=== PATIENT | female | born 1970 | race Caucasian/White ===

== ENCOUNTER → 2016-07-05 | Outpatient (CLI) | payer OTHER ==
[~2016-07-05] MED LIST: CHLO1TAB47 PO; DXY100 PO; FLNIN/ NAE; OMEP20CA9 PO; VNTHFA/IN PO
--- NOTE | 2016-07-05 12:10 | DIAGNOSTIC IMAGING REPORT ---
Bladder ultrasound (BLADE) RETROPERITONEAL LTD CLINICAL HISTORY: URINARY INCONTINENCE TECHNIQUE: Pre and post void bladder ultrasound COMPARISON STUDY: None FINDINGS: Prevoid bladder volume 250 cc. Post void 20 cc. Configuration of bladder is unremarkable. IMPRESSION: Pre and post void bladder volumes are 250 and 20 cc respectively. Negative study Electronically signed by: Doron Luo M.D. 07/05/2016 12:08 PM Dictated Date/Time: 07/05/2016 12:07 PM
== END | disposition home or self-care (01) ==
LOC: C.ULTR 11:39
PROVIDERS: ATTEND Student in an Organized Health Care Education/Training Program
DX: R32 Unspecified urinary incontinence (principal)

== ENCOUNTER 2016-08-23 14:24 | Inpatient (IN) | payer OTHER ==
[~2016-08-23] VITALS: Ht 157.5 cm; Wt 76.7 kg
[~2016-08-23 14:24] MED LIST changes: -DXY100 PO; -FLNIN/ NAE; -OMEP20CA9 PO; -VNTHFA/IN PO
[2016-08-23] MEDS ORDERED: VNTHFA/IN PO (14:50)
[2016-08-23] MEDS ORDERED: FLNIN/ NAE (14:50)
[2016-08-23] MEDS ORDERED: OMEP20CA9 PO (14:50)
[2016-08-23 15:20] LABS: HEMATOCRIT 41.3 % (37-47); MEAN CELL VOLUME 86.6 fL (80-100); MEAN CORPUSCULAR HGB CONC 34.6 g/dl (32-36); MEAN PLATELET VOLUME 10.2 fL (7.4-10.4); PLATELET COUNT 314 K/uL (130-400); RED BLOOD COUNT 4.77 M/uL (4.2-5.4); WHITE BLOOD COUNT 14.25 K/uL (4.8-10.8)
[2016-08-23 15:28] LABS: PROTHROMBIN TIME (PATIENT) 10.2 SECONDS (9.0-12.0)
[2016-08-23] MEDS: SODIUM CHLORIDE 0.9% 1000ML 1,000 ML IV SCH ×2 (15:33→21:03)
[2016-08-23 15:41] LABS: BASO % 0.2 %; BASO ABS # 0.03 K/uL (0-0.2); COMPLETE YES; EOS % 2.9 %; IG% 0.4 %; LYMPH % 21.4 %; LYMPH ABS # 3.05 K/uL (1.2-3.4); NEUT % 69.1 %
[2016-08-23 15:51] LABS: BLOOD UREA NITROGEN 14 mg/dl (7-18); BUN/CREATININE RATIO 17.5 (10-20); CALCIUM 8.6 mg/dl (8.5-10.1); CARBON DIOXIDE 25 mmol/L (21-32); CHLORIDE 107 mmol/L (98-107); CREATININE 0.78 mg/dl (0.60-1.20); GLUCOSE 100 mg/dl (70-99); SODIUM 140 mmol/L (136-145)
[2016-08-23] MEDS ORDERED: OPTIRAY 320 IV PRN (16:00)
--- NOTE | 2016-08-23 16:05 | DIAGNOSTIC IMAGING REPORT ---
CT ANGIOGRAM OF THE BRAIN COMBO CLINICAL HISTORY: Left-sided weakness. Numbness. COMPARISON STUDY: No priors. TECHNIQUE: Unenhanced axial CT scan of the brain is performed. Subsequently, following the IV administration of 93 cc of Optiray 320, CT angiogram of the brain was performed from the skull base to the vertex. Images are reviewed in the axial, sagittal, and coronal planes. 3-D MIPS images are created and assessed. IV contrast was administered without complication. CT DOSE: 895.65 mGycm FINDINGS: Brain parenchyma: The brain parenchyma is normal in appearance. There is no hemorrhage, mass effect, or evidence of acute territorial ischemia by CT criteria. There is no evidence of enhancing mass lesion on the angiogram phase images. No extra-axial fluid collection is seen. Jane-white matter differentiation is preserved. Ventricles, sulci, and cisterns: Normal in configuration. CT angiogram of the brain: There is origin of the right posterior cervical artery. There is a large left posterior communicating artery. The internal carotid arteries are widely patent, as are the anterior and middle cerebral arteries. The vertebrobasilar system and posterior cerebral arteries are widely patent. Basilar artery is diminutive. The vertebral arteries are codominant. There is no aneurysm, high-grade stenosis, or focal vessel cutoff identified throughout the intracranial circulation. Dural sinuses: Clear as visualized. Internal jugular veins are patent. Orbits: The bony orbits are intact. The orbital contents are normal as visualized. Sinuses and mastoids: The visualized paranasal sinuses are clear. The mastoid air cells are well pneumatized. Calvarium: Unremarkable. IMPRESSION: 1. No acute intracranial abnormality. 2. Unremarkable CT angiogram of the brain. Electronically signed by: Trip Varghese M.D. 08/23/2016 4:04 PM Dictated Date/Time: 08/23/2016 3:56 PM
[2016-08-23 16:31] LABS: ISTAT CREATININE 0.7 mg/dl (0.6-1.3); ISTAT HEMOGLOBIN 14.6 g/dl (12.0-16.0); ISTAT IONIZED CALCIUM 1.18 mmol/l (1.12-1.32)
[2016-08-23] MEDS ORDERED: LORAZEPAM 2 MG/ML 1 ML VIAL IV STA (16:43)
--- NOTE | 2016-08-23 17:24 | DIAGNOSTIC IMAGING REPORT ---
MRI OF THE BRAIN WITHOUT CONTRAST CLINICAL HISTORY: Left-sided face and arm numbness. Left arm and leg weakness. Possible stroke. COMPARISON STUDY: CT angiography the brain dated 08/23/2016. FINDINGS: Sagittal T1, axial diffusion, proton density and T2 weighted axial, coronal FLAIR, and axial T1-weighted images were acquired. No intra or extra-axial mass lesions are visualized Axial diffusion-weighted images reveal no evidence of acute or subacute infarction. There is no evidence of ventricular dilatation. Proton density T2-weighted and FLAIR images reveal small nonspecific foci of increased FLAIR signal within the right frontal white matter. While likely on a small vessel basis, a demyelinating process could appear similar. There are no abnormal flow voids. IMPRESSION: 1. No evidence of intracranial mass on this noncontrast study 2. No evidence of acute or subacute infarction 3. Small nonspecific foci of increased FLAIR signal within the right frontal white matter. Electronically signed by: Héctor Griffin M.D. 08/23/2016 5:23 PM Dictated Date/Time: 08/23/2016 5:19 PM
[2016-08-23 17:36] LABS: LYME DISEASE AB IGM NEG (NEG)
[2016-08-23 17:44] LABS: LYME DISEASE AB IGG POS (NEG)
[2016-08-23] MEDS ORDERED: CEFTRIAXONE SOD INJ 1 GM ADDVIAL IV STA ×2 (17:50→18:19)
[2016-08-23] MEDS ORDERED: ASPIRIN 81 MG CHEW PO STA (18:03)
[2016-08-23] MEDS ORDERED: SODIUM CHLORIDE 0.9% 1000ML 1,000 ML IV SCH (18:15)
[2016-08-23] MEDS ORDERED: ONDANSETRON INJ 2 MG/ML 2 ML VIAL IV PRN (18:15)
[2016-08-23] MEDS ORDERED: ACETAMINOPHEN 325 MG TAB PO PRN (18:15)
[2016-08-23] MEDS ORDERED: PHARMACIST DISCHARGE MED REC CONSULT PRN (18:15)
--- NOTE | 2016-08-23 18:40 | EMERGENCY ROOM VISIT NOTE ---
History Report prepared by Nadja: Nena Barrera Under the Supervision of: Dr. Jasbir Sandy M.D. First contact with patient: 14:32 Chief Complaint: STROKE SYMPTOMS Stated Complaint: LEFT SIDE NUMBNESS,L ARM REAL HEAVY,PAIN IN L LEG History of Present Illness The patient is a 45 year old female who presents to the Emergency Room with complaints of persistent left sided weakness that began around 1100. The patient states that around 1100 she first noticed numbness to the left side of her face. She states that after the numbness she noticed left sided weakness in her left arm and left leg. The patient states that she then developed a "screaming" headache that has been alleviated with her Excedrin Migraine. She states that she consulted her PCP's office and was instructed to come to the emergency department for further evaluation and treatment. The patient states that she additionally noticed blurry vision. She reports a history of asthma, noting that she occasionally takes an inhaler and nasal spray. Pt denies LOC, fevers, chills, diaphoresis, neck pain, chest pain, breathing difficulties, nausea, vomiting, abdominal pain, back pain, melena, hematochezia, urinary symptoms, lymphadenopathy, rash, or other complaints. Source of History: patient Onset: 1100 Position: other (left sided) Quality: other (weakness) Timing: other (persistent) Associated Symptoms: + headache, + numbness (left facial) Review of Systems See HPI for pertinent positives and negatives. A total of ten systems were reviewed and were otherwise negative. Past Medical & Surgical Medical Problems: (1) Asthma (2) Asthma (3) History of tubal ligation (4) Pneumonia Family History Cancer Hypertension Social History Smoking Status: Current Every Day Smoker Alcohol Use: none Marital Status: in relationship Housing Status: lives with family Occupation Status: unemployed Current/Historical Medications Scheduled Fluticasone Propionate (Fluticasone Propionate), 2 SPRAYS LAURO DAILY Scheduled PRN Albuterol Hfa (Ventolin Hfa), 2 PUFFS PO Q4H PRN for Shortness of Breath Omeprazole (Prilosec), 20 MG PO DAILY PRN for Heartburn Allergies Coded Allergies: [place] (Verified Allergy, Unknown, ANAPHYLAXIS, 08/23/16) Physical Exam Vital Signs Date Time Temp Pulse Resp B/P (MAP) Pulse Ox O2 Delivery O2 Flow Rate FiO2 08/23/16 18:03 76 18 112/73 97 Room Air 08/23/16 16:24 78 16 103/66 97 Room Air 08/23/16 15:20 95 Room Air 08/23/16 15:15 78 08/23/16 14:25 36.7 92 17 120/75 95 Room Air Physical Exam GENERAL: Awake, alert, well-appearing, in no distress HENT: Normocephalic, atraumatic. Oropharynx unremarkable. EYES: Normal conjunctiva. Sclera non-icteric. NECK: Supple. No nuchal rigidity. FROM. No JVD. RESPIRATORY: Clear to auscultation. CARDIAC: Regular rate, normal rhythm. Extremities warm and well perfused. Pulses equal. ABDOMEN: Soft, non-distended. No tenderness to palpation. No rebound or guarding. No masses. RECTAL: Deferred. MUSCULOSKELETAL: Chest examination reveals no tenderness. The back is symmetrical on inspection without obvious abnormality. There is no CVA tenderness to palpation. No joint edema. LOWER EXTREMITIES: Calves are equal size bilaterally and non-tender. No edema. No discoloration. NEURO: Normal sensorium. Left arm and left leg weakness and drift on the left side. SKIN: No rash or jaundice noted. Medical Decision & Procedures ER Provider Diagnostic Interpretation: Radiology results as stated below per my review and radiologist interpretation: CT ANGIOGRAM OF THE BRAIN COMBO CLINICAL HISTORY: Left-sided weakness. Numbness. COMPARISON STUDY: No priors. TECHNIQUE: Unenhanced axial CT scan of the brain is performed. Subsequently, following the IV administration of 93 cc of Optiray 320, CT angiogram of the brain was performed from the skull base to the vertex. Images are reviewed in the axial, sagittal, and coronal planes. 3-D MIPS images are created and assessed. IV contrast was administered without complication. CT DOSE: 895.65 mGycm FINDINGS: Brain parenchyma: The brain parenchyma is normal in appearance. There is no hemorrhage, mass effect, or evidence of acute territorial ischemia by CT criteria. There is no evidence of enhancing mass lesion on the angiogram phase images. No extra-axial fluid collection is seen. Jane-white matter differentiation is preserved. Ventricles, sulci, and cisterns: Normal in configuration. CT angiogram of the brain: There is origin of the right posterior cervical artery. There is a large left posterior communicating artery. The internal carotid arteries are widely patent, as are the anterior and middle cerebral arteries. The vertebrobasilar system and posterior cerebral arteries are widely patent. Basilar artery is diminutive. The vertebral arteries are codominant. There is no aneurysm, high-grade stenosis, or focal vessel cutoff identified throughout the intracranial circulation. Dural sinuses: Clear as visualized. Internal jugular veins are patent. Orbits: The bony orbits are intact. The orbital contents are normal as visualized. Sinuses and mastoids: The visualized paranasal sinuses are clear. The mastoid air cells are well pneumatized. Calvarium: Unremarkable. IMPRESSION: 1. No acute intracranial abnormality. 2. Unremarkable CT angiogram of the brain. Electronically signed by: Trip Varghese M.D. 08/23/2016 4:04 PM Dictated Date/Time: 08/23/2016 3:56 PM MRI OF THE BRAIN WITHOUT CONTRAST CLINICAL HISTORY: Left-sided face and arm numbness. Left arm and leg weakness. Possible stroke. COMPARISON STUDY: CT angiography the brain dated 08/23/2016. FINDINGS: Sagittal T1, axial diffusion, proton density and T2 weighted axial, coronal FLAIR, and axial T1-weighted images were acquired. No intra or extra-axial mass lesions are visualized Axial diffusion-weighted images reveal no evidence of acute or subacute infarction. There is no evidence of ventricular dilatation. Proton density T2-weighted and FLAIR images reveal small nonspecific foci of increased FLAIR signal within the right frontal white matter. While likely on a small vessel basis, a demyelinating process could appear similar. There are no abnormal flow voids. IMPRESSION: 1. No evidence of intracranial mass on this noncontrast study 2. No evidence of acute or subacute infarction 3. Small nonspecific foci of increased FLAIR signal within the right frontal white matter. Electronically signed by: Héctor Griffin M.D. 08/23/2016 5:23 PM Dictated Date/Time: 08/23/2016 5:19 PM Laboratory Results 08/23/16 15:08 Red Blood Count 4.77, Mean Corpuscular Volume 86.6, Mean Corpuscular Hemoglobin 30.0, Mean Corpuscular Hemoglobin Concent 34.6, Mean Platelet Volume 10.2, Neutrophils (%) (Auto) 69.1, Lymphocytes (%) (Auto) 21.4, Monocytes (%) (Auto) 6.0, Eosinophils (%) (Auto) 2.9, Basophils (%) (Auto) 0.2, Neutrophils # (Auto) 9.84, Lymphocytes # (Auto) 3.05, Monocytes # (Auto) 0.86, Eosinophils # (Auto) 0.42, Basophils # (Auto) 0.03 08/23/16 15:08 08/23/16 16:03 Test 08/23/16 15:08 08/23/16 15:18 08/23/16 16:03 White Blood Count 14.25 K/uL (4.8-10.8) Red Blood Count 4.77 M/uL (4.2-5.4) Hemoglobin 14.3 g/dL (12.0-16.0) Hematocrit 41.3 % (37-47) Mean Corpuscular Volume 86.6 fL (80-100) Mean Corpuscular Hemoglobin 30.0 pg (25-34) Mean Corpuscular Hemoglobin Concent 34.6 g/dl (32-36) Platelet Count 314 K/uL (130-400) Mean Platelet Volume 10.2 fL (7.4-10.4) Neutrophils (%) (Auto) 69.1 % Lymphocytes (%) (Auto) 21.4 % Monocytes (%) (Auto) 6.0 % Eosinophils (%) (Auto) 2.9 % Basophils (%) (Auto) 0.2 % Neutrophils # (Auto) 9.84 K/uL (1.4-6.5) Lymphocytes # (Auto) 3.05 K/uL (1.2-3.4) Monocytes # (Auto) 0.86 K/uL (0.11-0.59) Eosinophils # (Auto) 0.42 K/uL (0-0.5) Basophils # (Auto) 0.03 K/uL (0-0.2) RDW Standard Deviation 43.4 fL (36.4-46.3) RDW Coefficient of Variation 13.6 % (11.5-14.5) Immature Granulocyte % (Auto) 0.4 % Immature Granulocyte # (Auto) 0.05 K/uL (0.00-0.02) Red Blood Cell Morphology Unremarkable Prothrombin Time 10.2 SECONDS (9.0-12.0) Prothromb Time International Ratio 1.0 (0.9-1.1) Activated Partial Thromboplast Time 25.1 SECONDS (21.0-31.0) Partial Thromboplastin Ratio 1.0 Est Creatinine Clear Calc Drug Dose 88.4 ml/min Estimated GFR () 107.2 Estimated GFR (Non- 92.5 BUN/Creatinine Ratio 17.5 (10-20) Calcium Level 8.6 mg/dl (8.5-10.1) Creatine Kinase MB < 0.5 ng/ml (0.5-3.6) Creatine Kinase MB Ratio (0-3.0) Troponin I < 0.015 ng/ml (0-0.045) Bedside Hemoglobin 14.6 g/dl (12.0-16.0) Bedside Hematocrit 43 % (37-47) Bedside Sodium 139 mEq/L (135-144) Bedside Potassium 3.8 mEq/L (3.3-5.0) Bedside Chloride 102 mEq/L (101-112) Bedside Total CO2 24 mEq/l (24-31) Anion Gap 17.0 mmol/L (16-25) Bedside Blood Urea Nitrogen 14 mg/dl (7-18) Bedside Creatinine 0.7 mg/dl (0.6-1.3) Bedside Glucose (other) 103 mg/dl (70-99) Bedside Ionized Calcium (Jensen) 1.18 mmol/l (1.12-1.32) Total Creatine Kinase 91 U/L (26-192) Lyme Disease IgG Antibody POS (NEG) Laboratory results reviewed by me Medications Administered Medications (Trade) Dose Ordered Sig/Mauri Route Start Time Stop Time Status Last Admin Dose Admin Sodium Chloride 1,000 ml @ 50 mls/hr Q20H IV 08/23/16 15:00 09/22/16 14:59 08/23/16 15:33 50 MLS/HR Lorazepam (Ativan Inj) 0.5 mg NOW STAT IV 08/23/16 16:43 08/23/16 16:44 DC 08/23/16 16:49 0.5 MG Ceftriaxone Sodium (Rocephin Inj) 1 gm NOW STAT IV 08/23/16 17:50 08/23/16 17:51 DC 08/23/16 18:03 1 GM ECG Indication: weakness Rate (beats per minute): 70 Rhythm: sinus rhythm Findings: no acute ischemic change, no ectopy, other (short [place]) ED Course 1455: The patient was evaluated in room B3B. A complete history and physical exam was performed. 1500: Ordered Sodium Chloride 1000 ml @ 50 mls/hr IV. 1640: I reevaluated the patient and she is doing better. Her arm weakness has resolved and her right leg is feeling better. I discussed the exam findings with her and she is going to have an MRI. She is in agreement with the plan. 1643: Ordered Ativan Inj 0.5 mg IV. 1740: I reevaluated the patient and she is feeling better. Her weakness has resolved. I discussed the MRI findings with her. Neurology will be consulted. 174: I discussed the patients case with Dr. Hermosillo, [facility] Neurology. She states that the patient should be evaluated for further evaluation for the patient and further stroke work up. 1750: Ordered Rocephin Inj 1 gm IV. 175: I reevaluated the patient and she is doing well. I discussed the treatment plan with her and she verbalized complete understanding and agreement. She will be evaluated for further treatment. 180: I discussed the patients case with Vianey Rivera. She is going to evaluate the patient for further treatment. 180: Ordered Aspirin 324 mg PO. Medical Decision Medication Reconciliation: I attest that I have personally reviewed the patient' s current medication list Blood pressure screening: Patient was found to have normal blood pressure on screening and does not require follow-up. Prior records/ancillary studies reviewed and summarized above. Nursing notes reviewed and agree them. Additional history obtained from family. The patient's history was concerning for weakness and headache. Differential diagnosis: Etiologies such as CVA, TIA, migraine, atypical migraine, Lyme disease, ypo/ hyperglycemia, electrolyte abnormalities, cardiac sources, intracerebral event, toxicologic, neurologic, as well as others were entertained. Physical examination: As above. ER treatment provided: IV Lock Saline hydration On reassessment the patient felt better. Weakness improved. IV Ativan prior to MRI IV Rocephin 2 g Diagnostics interpretation by me: ECG: Normal The labs revealed a slight leukocytosis and CBC. Chemistry panel was unremarkable. Imaging studies: CT and MRI as above Consultation: A consultation was placed with the neurologist, Dr. Eryn Hermosillo. The case is discussed and she recommended further evaluation and management in the hospital. The case was discussed with the [facility] hospitalist. The case was discussed and diagnostics were reviewed. The patient was evaluated in the ER for further treatment. Consults Time Called: 1742 Consulting Physician: Vianey Pérez Neurology Returned Call: 174 I reevaluated the patient and she is feeling better. Her weakness has resolved. I discussed the MRI findings with her. Neurology will be consulted. Additional Consults: Time Called: 175 Consulted Physician: Vianey Rivera Returned Call: 180 Additional Comments: I discussed the patients case with Vianey Rivera. She is going to evaluate the patient for further treatment. Impression Primary Impression: Left-sided weakness Additional Impressions: Headache Lyme disease Scribe Attestation The scribe's documentation has been prepared under my direction and personally reviewed by me in its entirety. I confirm that the note above accurately reflects all work, treatment, procedures, and medical decision making performed by me. Departure Information Dispostion Being Evaluated By Hospitalist Referrals Cora Salas D.O. (PCP) Patient Instructions My [facility] Problem Qualifiers
--- NOTE | 2016-08-23 18:43 | History and Physical ---
History & Physical Date & Time of Service: Aug 23, 2016 at 18:43 Chief Complaint: Left Side Numbness,L Arm Real Heavy,Pain In L Leg Primary Care Physician: Cora Salas D.O. History of Present Illness Source: patient Patient is a 45 yr old female with PMH of Asthma, GERD, Migraine, Tobacco use presents with history of sudden onset of left sided facial numbness and left sided weakness. Patient reports she noticed left sided facial numbness at around 11AM this morning which lasted for about 20-30 minutes and then she felt "shaky" and developed left arm numbness and weakness and long with left leg weakness which lasted for about 4-5 hours which resolved currently while in ED. Reports associated blurry vision (lasted for 10 minutes) and frontal and retrobulbar headache which resolved after taking Excedrin Migraine. Denies similar history in the past. Denies any history of chest pain, SOB, fever, chills, rash, facial deformity, speech problems, LOC, head trauma, abd pain, change in bowel/bladder habits, cough, wheezing, neck stiffness. MRI brain showed a small nonspecific foci of increased flair signal within the right frontal white matter. She reports no rash, tick bite or h/o lyme disease but reports she lives near to a [place] and Ig G for lyme is positive but IgM is negative. Past Medical/Surgical History Medical Problems: (1) Asthma Status: Chronic (2) Asthma Status: Chronic (3) History of tubal ligation Status: Resolved (4) Pneumonia Status: Resolved Family History Cancer Hypertension Mother: Cervical cancer, Diabetes Father: Stroke Maternal Grand mother: Pancreatic cancer Social History Smoking Status: Current Every Day Smoker Alcohol Use: socially Drug Use: none Marital Status: in relationship Occupational Status: unemployed Multi-Drug Resistant Organisms History of MDRO: No Allergies Coded Allergies: [place] (Verified Allergy, Unknown, ANAPHYLAXIS, 08/23/16) Home Medications Scheduled Fluticasone Propionate (Fluticasone Propionate), 2 SPRAYS LAURO DAILY Scheduled PRN Albuterol Hfa (Ventolin Hfa), 2 PUFFS PO Q4H PRN for Shortness of Breath Omeprazole (Prilosec), 20 MG PO DAILY PRN for Heartburn Review of Systems See HPI for pertinent positives & negatives. A total of 10 systems reviewed and were otherwise negative. Physical Exam Vital Signs Date Time Temp Pulse Resp B/P (MAP) Pulse Ox O2 Delivery O2 Flow Rate FiO2 08/23/16 18:03 76 18 112/73 97 Room Air 08/23/16 16:24 78 16 103/66 97 Room Air 08/23/16 15:20 95 Room Air 08/23/16 15:15 78 08/23/16 14:25 36.7 92 17 120/75 95 Room Air General Appearance: WD/WN, no apparent distress Head: normocephalic, atraumatic Eyes: normal inspection, PERRL, EOMI, sclerae normal ENT: normal ENT inspection, hearing grossly normal Neck: supple, trachea midline Respiratory/Chest: chest non-tender, lungs clear, normal breath sounds, no respiratory distress, no accessory muscle use Cardiovascular: regular rate, rhythm, no edema, no murmur Abdomen/GI: normal bowel sounds, non tender, soft Back: normal inspection Extremities/Musculoskelatal: normal inspection, no pedal edema Neurologic/Psych: film editor II-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 No facial deformity ) Skin: normal color, warm/dry, no rash Diagnostics Laboratory Results Results Past 24 Hours Test 08/23/16 15:08 08/23/16 15:18 08/23/16 16:03 Range/Units White Blood Count 14.25 4.8-10.8 K/uL Red Blood Count 4.77 4.2-5.4 M/uL Hemoglobin 14.3 12.0-16.0 g/dL Hematocrit 41.3 37-47 % Mean Corpuscular Volume 86.6 80-100 fL Mean Corpuscular Hemoglobin 30.0 25-34 pg Mean Corpuscular Hemoglobin Concent 34.6 32-36 g/dl Platelet Count 314 130-400 K/uL Mean Platelet Volume 10.2 7.4-10.4 fL Neutrophils (%) (Auto) 69.1 % Lymphocytes (%) (Auto) 21.4 % Monocytes (%) (Auto) 6.0 % Eosinophils (%) (Auto) 2.9 % Basophils (%) (Auto) 0.2 % Neutrophils # (Auto) 9.84 1.4-6.5 K/uL Lymphocytes # (Auto) 3.05 1.2-3.4 K/uL Monocytes # (Auto) 0.86 0.11-0.59 K/uL Eosinophils # (Auto) 0.42 0-0.5 K/uL Basophils # (Auto) 0.03 0-0.2 K/uL RDW Standard Deviation 43.4 36.4-46.3 fL RDW Coefficient of Variation 13.6 11.5-14.5 % Immature Granulocyte % (Auto) 0.4 % Immature Granulocyte # (Auto) 0.05 0.00-0.02 K/uL Red Blood Cell Morphology Unremarkable Prothrombin Time 10.2 9.0-12.0 SECONDS Prothromb Time International Ratio 1.0 0.9-1.1 Activated Partial Thromboplast Time 25.1 21.0-31.0 SECONDS Partial Thromboplastin Ratio 1.0 Sodium Level 140 136-145 mmol/L Potassium Level 4.0 3.5-5.1 mmol/L Chloride Level 107 98-107 mmol/L Carbon Dioxide Level 25 21-32 mmol/L Anion Gap 8.0 17.0 16-25 mmol/L Blood Urea Nitrogen 14 7-18 mg/dl Creatinine 0.78 0.60-1.20 mg/dl Est Creatinine Clear Calc Drug Dose 88.4 ml/min Estimated GFR () 107.2 Estimated GFR (Non- 92.5 BUN/Creatinine Ratio 17.5 10-20 Random Glucose 100 70-99 mg/dl Calcium Level 8.6 8.5-10.1 mg/dl Total Creatine Kinase 91 26-192 U/L Creatine Kinase MB < 0.5 0.5-3.6 ng/ml Creatine Kinase MB Ratio 0-3.0 Troponin I < 0.015 0-0.045 ng/ml Bedside Hemoglobin 14.6 12.0-16.0 g/dl Bedside Hematocrit 43 37-47 % Bedside Sodium 139 135-144 mEq/L Bedside Potassium 3.8 3.3-5.0 mEq/L Bedside Chloride 102 101-112 mEq/L Bedside Total CO2 24 24-31 mEq/l Bedside Blood Urea Nitrogen 14 7-18 mg/dl Bedside Creatinine 0.7 0.6-1.3 mg/dl Bedside Glucose (other) 103 70-99 mg/dl Bedside Ionized Calcium (Jensen) 1.18 1.12-1.32 mmol/l Lyme Disease IgG Antibody POS NEG Lyme Disease IgM Antibody NEG NEG Diagnostic Radiology MRI Brain: 1. No evidence of intracranial mass on this noncontrast study 2. No evidence of acute or subacute infarction 3. Small nonspecific foci of increased FLAIR signal within the right frontal white matter. Head CTA: 1. No acute intracranial abnormality. 2. Unremarkable CT angiogram of the brain. EKG EKG: Sinus rhythm with short ID Impression Assessment and Plan Stroke Like Symptoms: DD: Disseminated lyme's disease, complicated Migraine, TIA Presented with left sided numbness and weakness, transient headache and blurry vision. Currently symptoms resolved while in ED Not a candidate for tPA- Passed the window period and symptoms resolved MRI Brain:a small nonspecific foci of increased flair signal within the right frontal white matter. Head CTA: No acute intracranial abnormality Admit in Tele Stroke work up including lipid panel, A1C, Carotid duplex, ECHO Speech and swallow eval Start aspirin, Lipitor Neuro checks, Neurology consult PT/OT Start IV ceftriaxone empirically for Lyme's disease Lyme's Ig G is positive but IgM is negative. 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
[2016-08-23] MEDS ORDERED: ALBUT/IPRATROP 3MG/0.5MG NEB 3 ML VIAL INH PRN (19:00)
[2016-08-23] MEDS ORDERED: PANTOprazole SOD 40 MG TAB PO PRN (19:00)
[2016-08-23 20:15] VITALS: BP 104/61; PULSE 75; TEMP 36.9; O2SAT 96; Ht 157.5 cm; Wt 76.7 kg
--- NOTE | 2016-08-23 20:17 | DIAGNOSTIC IMAGING REPORT ---
ULTRASOUND OF THE CAROTID ARTERIES CLINICAL HISTORY: Stroke COMPARISON STUDY: None. TECHNIQUE: Real-time, grayscale, and color Doppler sonography of the carotid arteries was performed. Imaging reviewed in the transverse and longitudinal planes. NASCET criteria was utilized for stenosis calcification. FINDINGS: There is no significant atherosclerotic plaque present . The peak systolic velocity within the right internal carotid artery is 85 cm/sec. The systolic velocity ratio of right internal to common carotid artery is 0.9. The peak systolic velocity within the left internal carotid artery is 87 cm/sec. The systolic velocity ratio left internal to common carotid artery is 0.9. Antegrade flow is seen in the vertebral arteries. The external carotid arteries are patent. Blood pressure in the right arm measured 99 mm/Hg. Blood pressure in the left arm measured 82 mm/Hg. IMPRESSION: Normal study. No evidence of carotid stenosis. Electronically signed by: Héctor Griffin M.D. 08/23/2016 8:16 PM Dictated Date/Time: 08/23/2016 8:14 PM
[2016-08-23] MEDS: NICOTINE 21 MG/24 HR TDSY TD SCH (22:39)
[2016-08-23 23:47] VITALS: BP 100/59; PULSE 80; TEMP 37; O2SAT 97
[2016-08-24] VITALS (7 sets, daily range): BP systolic 93–132; BP diastolic 58–82; PULSE 76–90; TEMP 36.6–36.9; O2SAT 93–97
[2016-08-24 06:15] LABS: BASO % 0.2 %; BASO ABS # 0.02 K/uL (0-0.2); COMPLETE YES; EOS % 5.3 %; HEMATOCRIT 39.8 % (37-47); IG% 0.3 %; LYMPH % 24.6 %; LYMPH ABS # 2.92 K/uL (1.2-3.4); MEAN CELL VOLUME 88.1 fL (80-100); MEAN CORPUSCULAR HEMOGLOBIN 30.3 pg (25-34); MEAN CORPUSCULAR HGB CONC 34.4 g/dl (32-36); MEAN PLATELET VOLUME 10.3 fL (7.4-10.4); MONO % 5.3 %; NEUT % 64.3 %; PLATELET COUNT 281 K/uL (130-400); RED BLOOD COUNT 4.52 M/uL (4.2-5.4); WHITE BLOOD COUNT 11.89 K/uL (4.8-10.8)
[2016-08-24 06:56] LABS: BUN/CREATININE RATIO 20.5 (10-20); CREATININE 0.66 mg/dl (0.60-1.20); POTASSIUM 3.9 mmol/L (3.5-5.1)
[2016-08-24 06:59] LABS: CHOLESTEROL/HDL RATIO 3.9
[2016-08-24] MEDS: NICOTINE 21 MG/24 HR TDSY TD SCH (07:37)
[2016-08-24] MEDS: FLUTICASONE PROPIONATE NA SPR 16 GM BTL NAE SCH (07:37)
[2016-08-24] MEDS ORDERED: CEFTRIAXONE SOD INJ 2,000 MG in DEXTROSE 5% 50ML 50 ML IV SCH (08:00)
[2016-08-24 08:05] LABS: ESTIMATED AVERAGE GLUCOSE 117 mg/dl; HA1C FLAG Normal (Normal)
--- NOTE | 2016-08-24 08:05 | Progress Note ---
Internal Med Progress Note Date of Service: Aug 24, 2016. Provider Documentation: SUBJECTIVE: Seen and examined at bedside. States having persistent mild left sided weakness. Denies Headache, numbness, facial deformity, speech problems, change in vision, chest pain, SOB. Offers no other complaints. OBJECTIVE: Vital Signs-as noted below Physical Exam: General Appearance:Moderately built and nourished, no apparent distress Head: normocephalic, Atraumatic Eyes: normal inspection, EOMI, PERRL Neck: supple, Trachea midline Respiratory/Chest: Normal breath sounds, CTA Cardiovascular: S1, S2, No murmur Abdomen/GI:Soft, Non tender, Bowel sounds present Extremities/Musculoskelatal:normal inspection, no edema Neurologic/Psych:LUE and LLE weakness 4/5 Skin: normal color, warm Lab data as noted below. ASSESSMENT & PLAN: Stroke Like Symptoms: DD: Disseminated lyme's disease, demyelinating diseases, complicated Migraine, TIA Presented with left sided numbness and weakness, transient headache and blurry vision. No meningeal signs Not a candidate for tPA- Passed the window period and symptoms resolved MRI Brain:a small nonspecific foci of increased flair signal within the right frontal white matter. Head CTA: No acute intracranial abnormality Carotid Doppler:Normal ECHO:pending A1C:5.7 Lipid panel:wnl Continue aspirin, Lipitor Neuro checks Neurology consulted:await for input PT/OT Continue IV ceftriaxone empirically for Lyme's disease Lyme's Ig G is positive but IgM is negative. 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 No evidence of carotid stenosis. Brain MRI: 1. No evidence of intracranial mass on this noncontrast study 2. No evidence of acute or subacute infarction 3. Small nonspecific foci of increased FLAIR signal within the right frontal white matter. Head CTA: 1. No acute intracranial abnormality. 2. Unremarkable CT angiogram of the brain. Vital Signs: Date Time Temp Pulse Resp B/P (MAP) Pulse Ox O2 Delivery O2 Flow Rate FiO2 08/24/16 04:00 Room Air 08/24/16 03:49 36.6 78 18 101/58 (72) 97 Room Air 08/23/16 23:59 Room Air 08/23/16 23:47 37.0 80 18 100/59 (73) 97 Room Air 08/23/16 20:15 36.9 75 18 104/61 96 Room Air 08/23/16 19:43 88 18 112/75 97 08/23/16 18:03 76 18 112/73 97 Room Air 08/23/16 16:24 78 16 103/66 97 Room Air 08/23/16 15:20 95 Room Air 08/23/16 15:15 78 08/23/16 14:25 36.7 92 17 120/75 95 Room Air Lab Results: Results Past 24 Hours Test 08/23/16 15:08 08/23/16 15:18 08/23/16 16:03 08/24/16 05:36 Range/Units White Blood Count 14.25 11.89 4.8-10.8 K/uL Red Blood Count 4.77 4.52 4.2-5.4 M/uL Hemoglobin 14.3 13.7 12.0-16.0 g/dL Hematocrit 41.3 39.8 37-47 % Mean Corpuscular Volume 86.6 88.1 80-100 fL Mean Corpuscular Hemoglobin 30.0 30.3 25-34 pg Mean Corpuscular Hemoglobin Concent 34.6 34.4 32-36 g/dl Platelet Count 314 281 130-400 K/uL Mean Platelet Volume 10.2 10.3 7.4-10.4 fL Neutrophils (%) (Auto) 69.1 64.3 % Lymphocytes (%) (Auto) 21.4 24.6 % Monocytes (%) (Auto) 6.0 5.3 % Eosinophils (%) (Auto) 2.9 5.3 % Basophils (%) (Auto) 0.2 0.2 % Neutrophils # (Auto) 9.84 7.66 1.4-6.5 K/uL Lymphocytes # (Auto) 3.05 2.92 1.2-3.4 K/uL Monocytes # (Auto) 0.86 0.63 0.11-0.59 K/uL Eosinophils # (Auto) 0.42 0.63 0-0.5 K/uL Basophils # (Auto) 0.03 0.02 0-0.2 K/uL RDW Standard Deviation 43.4 44.6 36.4-46.3 fL RDW Coefficient of Variation 13.6 13.9 11.5-14.5 % Immature Granulocyte % (Auto) 0.4 0.3 % Immature Granulocyte # (Auto) 0.05 0.03 0.00-0.02 K/uL Red Blood Cell Morphology Unremarkable Prothrombin Time 10.2 9.0-12.0 SECONDS Prothromb Time International Ratio 1.0 0.9-1.1 Activated Partial Thromboplast Time 25.1 21.0-31.0 SECONDS Partial Thromboplastin Ratio 1.0 Sodium Level 140 142 136-145 mmol/L Potassium Level 4.0 3.9 3.5-5.1 mmol/L Chloride Level 107 111 98-107 mmol/L Carbon Dioxide Level 25 24 21-32 mmol/L Anion Gap 8.0 17.0 7.0 3-11 mmol/L Blood Urea Nitrogen 14 14 7-18 mg/dl Creatinine 0.78 0.66 0.60-1.20 mg/dl Est Creatinine Clear Calc Drug Dose 88.4 105.6 ml/min Estimated GFR () 107.2 124.5 Estimated GFR (Non- 92.5 107.4 BUN/Creatinine Ratio 17.5 20.5 10-20 Random Glucose 100 94 70-99 mg/dl Estimated Average Glucose 117 mg/dl Hemoglobin A1c 5.7 4.5-5.6 % Calcium Level 8.6 8.0 8.5-10.1 mg/dl Total Creatine Kinase 91 26-192 U/L Creatine Kinase MB < 0.5 0.5-3.6 ng/ml Creatine Kinase MB Ratio 0-3.0 Troponin I < 0.015 0-0.045 ng/ml Bedside Hemoglobin 14.6 12.0-16.0 g/dl Bedside Hematocrit 43 37-47 % Bedside Sodium 139 135-144 mEq/L Bedside Potassium 3.8 3.3-5.0 mEq/L Bedside Chloride 102 101-112 mEq/L Bedside Total CO2 24 24-31 mEq/l Bedside Blood Urea Nitrogen 14 7-18 mg/dl Bedside Creatinine 0.7 0.6-1.3 mg/dl Bedside Glucose (other) 103 70-99 mg/dl Bedside Ionized Calcium (Jensen) 1.18 1.12-1.32 mmol/l Lyme Disease IgG Antibody POS NEG Lyme Disease IgM Antibody NEG NEG Triglycerides Level 72 0-150 mg/dl Cholesterol Level 138 0-200 mg/dl HDL Cholesterol 35 mg/dl LDL Cholesterol, Calculated 89 mg/dl VLDL Cholesterol, Calculated 14 mg/dl Cholesterol/HDL Ratio 3.9
[2016-08-24] MEDS ORDERED: ASPIRIN 81 MG ECTAB PO SCH (09:00)
[2016-08-24] MEDS ORDERED: ATORVASTATIN 40 MG TAB PO SCH (09:00)
--- NOTE | 2016-08-24 11:26 | ECHOCARDIOGRAM REPORT ---
*NOTICE TO RECEIVING LIBERTARIAN AGENCY This information is strictly Confidential and protected under [place] law. [place] law prohibits you from making any further disclosure of this information unless further disclosure is expressly permitted by the written consent of the person to whom it pertains or is authorized by law. A general authorization for the release of medical or other information is not sufficient for this purpose. Hospital accepts no responsibility if the information is made available to any other person, INCLUDING THE PATIENT. Interpretation Summary * Name: RAJINDER GODINEZ Study Date: 08/24/2016 06:56 AM BP: 101/58 mmHg * Patient Location: C.2E\S\E201\S\1 HR: 78 * : 1970 (M/d/yyyy) Gender: Female Height: 62 in * Age: 45 yrs Ethnicity: CA Weight: 170 lb * Ordering Physician: Oscar Mercedes * Referring Physician: Self, Referred * Performed By: Nena Flores RDCS * * Reason For Study: STROKE LIKE SYMPTOMS * BSA: 1.8 m2 * -- Conclusions -- * Normal study. Procedure Details * A saline contrast injection was performed to assess for cardiac shunting. * The injection was performed through an intravenous line in the right arm. * The attending nurse who injected the saline contrast was SERAFIN FLOOD. * A total of 20 cc of agitated saline was given. Left Ventricle * The left ventricle is normal in size. * There is normal left ventricular wall thickness. * Ejection Fraction = 60-65%. * Left ventricular systolic function is normal. * No segmental left ventricular wall motion abnormalities are noted. * The left ventricular wall motion is normal. Right Ventricle * The right ventricular cavity size is normal (basal dimension <4.2 cm in right ventricular apical 4-chamber view). * The right ventricular systolic function is normal as assessed by tricuspid annular plane systolic excursion (TAPSE) (normal >1.5 cm). Atria * The left atrial size is normal. * Right atrial size is normal. * No ASD detected; PFO is not assessed. Mitral Valve * The mitral valve is normal in structure and function. Tricuspid Valve * The tricuspid valve is normal in structure and function. Aortic Valve * The aortic valve is normal in structure and function. Pulmonic Valve * The pulmonary valve is not well seen, but the Doppler examination is normal without significant regurgitation or stenosis. Great Vessels * The aortic root and proximal ascending aorta are normal sized. Pericardium/Pleural * There is no pericardial effusion. Left Ventricular Diastolic Function * Pulse wave TDI of the anterior and posterior mitral annulas demonstrates normal LV relaxation MMode 2D Measurements and Calculations IVSd 0.94 cm IVSs 1.3 cm LVIDd 4.3 cm LVIDs 2.7 cm LVPWd 1.1 cm LVPWs 1.7 cm IVS/LVPW 0.89 FS 36.2 % EDV(Teich) 81.8 ml ESV(Teich) 27.6 ml EF(Teich) 66.2 % EDV(cubed) 78.0 ml ESV(cubed) 20.2 ml EF(cubed) 74.0 % % IVS thick 42.2 % % LVPW thick 57.5 % LV mass(C)d 140.6 grams LV mass(C)dI 78.9 grams/m\S\2 LV mass(C)s 139.9 grams LV mass(C)sI 78.5 grams/m\S\2 SV(Teich) 54.2 ml SI(Teich) 30.4 ml/m\S\2 SV(cubed) 57.8 ml SI(cubed) 32.4 ml/m\S\2 Ao root diam 2.6 cm Ao root area 5.5 cm\S\2 LA dimension 3.1 cm LA/Ao 1.2 LVAd ap4 25.6 cm\S\2 LVLd ap4 7.3 cm EDV(MOD-sp4) 73.2 ml EDV(sp4-el) 75.7 ml LVAs ap4 14.5 cm\S\2 LVLs ap4 6.1 cm ESV(MOD-sp4) 30.4 ml ESV(sp4-el) 29.4 ml EF(MOD-sp4) 58.5 % EF(sp4-el) 61.1 % LVAd ap2 19.8 cm\S\2 LVLd ap2 7.3 cm EDV(MOD-sp2) 45.5 ml EDV(sp2-el) 45.7 ml LVAs ap2 11.3 cm\S\2 LVLs ap2 6.1 cm ESV(MOD-sp2) 19.4 ml ESV(sp2-el) 18.0 ml EF(MOD-sp2) 57.4 % EF(sp2-el) 60.6 % LVLd %diff -0.82 % EDV(MOD-bp) 57.9 ml LVLs %diff -0.34 % ESV(MOD-bp) 24.2 ml EF(MOD-bp) 58.2 % SV(MOD-sp4) 42.8 ml SI(MOD-sp4) 24.0 ml/m\S\2 SV(MOD-sp2) 26.1 ml SI(MOD-sp2) 14.7 ml/m\S\2 SV(MOD-bp) 33.7 ml SI(MOD-bp) 18.9 ml/m\S\2 SV(sp4-el) 46.3 ml SI(sp4-el) 26.0 ml/m\S\2 SV(sp2-el) 27.7 ml SI(sp2-el) 15.5 ml/m\S\2 Doppler Measurements and Calculations MV E max kike 65.6 cm/sec MV dec time 0.25 sec Ao V2 max 119.1 cm/sec Ao max PG 5.7 mmHg Ao max PG (full) 2.9 mmHg LV V1 max PG 2.8 mmHg LV V1 max 83.3 cm/sec
--- NOTE | 2016-08-24 13:22 | DIAGNOSTIC IMAGING REPORT ---
HEAD CT NONCONTRAST CT DOSE: 537.48 mGy.cm HISTORY: Left sided weakness TECHNIQUE: Multiaxial CT images of the head were performed without the use of intravenous contrast. Automated exposure control was utilized for this study. Comparison: Head CTA 08/23/2016. Brain MRI 08/23/2016. Findings: The paranasal sinuses and mastoid air cells are clear. The calvarium and skull base are intact. The ventricles and sulci are within normal limits. There is no mass, hematoma, midline shift, or acute infarct. Impression: No acute intracranial abnormality. Electronically signed by: Joshua Fajardo M.D. 08/24/2016 1:20 PM Dictated Date/Time: 08/24/2016 1:17 PM
[2016-08-24] MEDS ORDERED: LORAZEPAM 2 MG/ML 1 ML VIAL IV ONE (14:00)
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
--- NOTE | 2016-08-24 15:54 | DIAGNOSTIC IMAGING REPORT ---
CERVICAL SPINE MRI WITH AND WITHOUT CONTRAST HISTORY: Mental status change Stroke like symptoms TECHNIQUE: Multiplanar multisequence MRI of the cervical spine was performed both before and after the use of intravenous contrast. COMPARISON STUDY: None. FINDINGS: Somewhat limited study technically as the patient could not tolerate the procedure. Considerable motion artifact is present throughout. Reversal of normal cervical curvature. Mild disc degenerative change throughout.. No evidence for abnormal postcontrast enhancement C2-C3: No significant central canal or neural foraminal narrowing. C3-C4: No significant central canal or neural foraminal narrowing. C4-C5: Mild right posterior disc bulge. Contact with but no significant deformity of the cervical cord. Neuroforamina are patent bilaterally. C5-C6: Mild broad-based disc herniation. Moderate narrowing right neuroforamina. C6-C7: Mild broad-based disc herniation. Minimal impact anterior cervical cord. Moderate narrowing right and to lesser extent left neural foramina. C7-T1: No significant central canal or neural foraminal narrowing. IMPRESSION: 1. Suboptimal exam due to patient motion. 2. Reversal of the normal cervical curvature consistent with muscular spasm. 3. Mild posterior disc herniations at C5-C6 and C6-C7 creating mild impact with anterior cervical cord and mild to moderate narrowing of the right neuroforamina at both levels. 4. Mild right posterior disc bulge C4-C5 5. No evidence for abnormal postcontrast enhancement Electronically signed by: Doron Luo M.D. 08/24/2016 3:53 PM Dictated Date/Time: 08/24/2016 3:49 PM
--- NOTE | 2016-08-24 15:54 | DIAGNOSTIC IMAGING REPORT ---
Brain MRI WITH AND WITHOUT CONTRAST HISTORY: Left arm and face numbness. R/O Stroke TECHNIQUE: Multiplanar multisequence MRI of the brain was performed both before and after the intravenous administration of contrast. COMPARISON STUDY: None. FINDINGS: There are no areas of restricted diffusion to suggest acute infarction. The midline structures are intact. The paranasal sinuses are clear. The mastoid air cells are clear. The ventricles and sulci are within normal limits for age. There is no mass, hematoma, midline shift. The major vascular flow-voids at the skull base are well maintained. Postcontrast sequences show no areas of abnormal enhancement. A few punctate foci of T2 hyperintensity within the white matter of the right frontal lobe. IMPRESSION: No acute intracranial abnormality. A few punctate foci of nonspecific T2 hyperintensity within the white matter the right frontal lobe. This could be seen in the setting of minimal microvascular ischemic change or migraines. A demyelinating disease is considered less likely. Electronically signed by: Joshua Fajardo M.D. 08/24/2016 3:53 PM Dictated Date/Time: 08/24/2016 3:48 PM
[2016-08-24] MEDS ORDERED: GADAVIST IV PRN (16:00)
[2016-08-24 16:59] LABS: ALB/GLOB RATIO 0.9 (0.9-2); BUN/CREATININE RATIO 18.5 (10-20); CALCIUM 8.5 mg/dl (8.5-10.1); CREATININE 0.72 mg/dl (0.60-1.20); POTASSIUM 3.9 mmol/L (3.5-5.1)
[2016-08-25 03:10] VITALS: BP 101/68; PULSE 74; TEMP 36.9; O2SAT 95
[2016-08-25 05:57] LABS: BASO % 0.2 %; BASO ABS # 0.02 K/uL (0-0.2); COMPLETE YES; EOS % 7.1 %; HEMATOCRIT 41.6 % (37-47); IG% 0.1 %; LYMPH % 20.8 %; LYMPH ABS # 2.29 K/uL (1.2-3.4); MEAN CELL VOLUME 87.8 fL (80-100); MEAN CORPUSCULAR HEMOGLOBIN 29.7 pg (25-34); MEAN CORPUSCULAR HGB CONC 33.9 g/dl (32-36); MEAN PLATELET VOLUME 10.3 fL (7.4-10.4); MONO % 6.5 %; NEUT % 65.3 %; PLATELET COUNT 300 K/uL (130-400); RED BLOOD COUNT 4.74 M/uL (4.2-5.4)
[2016-08-25 06:30] LABS: BUN/CREATININE RATIO 16.4 (10-20); CALCIUM 8.6 mg/dl (8.5-10.1); CREATININE 0.77 mg/dl (0.60-1.20)
[2016-08-25 06:59] VITALS: BP 103/66; PULSE 72; TEMP 36.6; O2SAT 96
[2016-08-25] MEDS: FLUTICASONE PROPIONATE NA SPR 16 GM BTL NAE SCH (08:33)
[2016-08-25] MEDS: NICOTINE 21 MG/24 HR TDSY TD SCH (08:34)
--- NOTE | 2016-08-25 08:39 | Progress Note ---
Internal Med Progress Note Date of Service: Aug 25, 2016. Provider Documentation: SUBJECTIVE: Seen and examined at bedside. States left sided weakness, numbness, headache resolved. Denies facial deformity, speech problems, change in vision, chest pain, SOB. Offers no other complaints. Developed itching in fingers after administering Rocephin which she says is currently resolved. OBJECTIVE: Vital Signs-as noted below Physical Exam: General Appearance:Moderately built and nourished, no apparent distress Head: normocephalic, Atraumatic Eyes: normal inspection, EOMI, PERRL Neck: supple, Trachea midline Respiratory/Chest: Normal breath sounds, CTA Cardiovascular: S1, S2, No murmur Abdomen/GI:Soft, Non tender, Bowel sounds present Extremities/Musculoskelatal:normal inspection, no edema Neurologic/Psych:grossly no focal deficits Skin: normal color, warm Lab data as noted below. ASSESSMENT & PLAN: Stroke Like Symptoms: DD: Disseminated lyme's disease, complicated Migraine Presented with transient left sided numbness and weakness, headache, blurry vision. No meningeal signs Not a candidate for tPA- Passed the window period and symptoms resolved MRI Brain:a small nonspecific foci of increased flair signal within the right frontal white matter. Head CTA: No acute intracranial abnormality Carotid Doppler:Normal ECHO:Normal A1C:5.7 Lipid panel:wnl Will discontinue aspirin, Lipitor Neuro checks Appreciate Neurology input PT/OT Received IV ceftriaxone empirically for Lyme's disease for 2 days Lyme's Ig G is positive but IgM is negative. 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 Follow up with your doctor for results PROCEDURES: Carotid Doppler: Normal study. No evidence of carotid stenosis. Brain MRI: 1. No evidence of intracranial mass on this noncontrast study 2. No evidence of acute or subacute infarction 3. Small nonspecific foci of increased FLAIR signal within the right frontal white matter. Head CTA: 1. No acute intracranial abnormality. 2. Unremarkable CT angiogram of the brain. MRI C-spine: 1. Suboptimal exam due to patient motion. 2. Reversal of the normal cervical curvature consistent with muscular spasm. 3. Mild posterior disc herniations at C5-C6 and C6-C7 creating mild impact with anterior cervical cord and mild to moderate narrowing of the right neuroforamina at both levels. 4. Mild right posterior disc bulge C4-C5 5. No evidence for abnormal postcontrast enhancement Repeat MRI brain: No acute intracranial abnormality. A few punctate foci of nonspecific T2 hyperintensity within the white matter the right frontal lobe. This could be seen in the setting of minimal microvascular ischemic change or migraines. A demyelinating disease is considered less likely. Vital Signs: Date Time Temp Pulse Resp B/P (MAP) Pulse Ox O2 Delivery O2 Flow Rate FiO2 08/25/16 12:23 72 96 08/25/16 12:00 Room Air 08/25/16 11:58 36.8 76 19 127/75 (92) 97 Room Air 08/25/16 08:00 Room Air 08/25/16 06:59 36.6 72 18 103/66 (78) 96 Room Air 08/25/16 04:00 Room Air 08/25/16 03:10 36.9 74 20 101/68 (79) 95 Room Air 08/24/16 23:59 Room Air 08/24/16 23:58 36.7 78 16 102/62 (75) 97 Room Air 08/24/16 20:00 Room Air 08/24/16 19:05 36.8 89 21 93/70 (78) 95 Room Air 08/24/16 16:00 36.9 76 16 102/65 (77) 93 08/24/16 16:00 Room Air Lab Results: Results Past 24 Hours Test 08/24/16 13:23 08/24/16 16:18 08/24/16 17:35 08/25/16 05:34 Range/Units Bedside Glucose 117 70-90 mg/dl Sodium Level 140 140 136-145 mmol/L Potassium Level 3.9 4.0 3.5-5.1 mmol/L Chloride Level 108 108 98-107 mmol/L Carbon Dioxide Level 23 24 21-32 mmol/L Anion Gap 9.0 8.0 3-11 mmol/L Blood Urea Nitrogen 13 13 7-18 mg/dl Creatinine 0.72 0.77 0.60-1.20 mg/dl Est Creatinine Clear Calc Drug Dose 96.8 90.5 ml/min Estimated GFR () 118.0 108.8 Estimated GFR (Non- 101.9 93.9 BUN/Creatinine Ratio 18.5 16.4 10-20 Random Glucose 83 86 70-99 mg/dl Calcium Level 8.5 8.6 8.5-10.1 mg/dl Total Bilirubin 0.2 0.2-1 mg/dl Aspartate Amino Transf (AST/SGOT) 14 15-37 U/L Alanine Aminotransferase (ALT/SGPT) 13 12-78 U/L Alkaline Phosphatase 71 45-117 U/L Total Protein 6.7 6.4-8.2 gm/dl Albumin 3.1 3.4-5.0 gm/dl Globulin 3.6 2.5-4.0 gm/dl Albumin/Globulin Ratio 0.9 0.9-2 White Blood Count 11.00 4.8-10.8 K/uL Red Blood Count 4.74 4.2-5.4 M/uL Hemoglobin 14.1 12.0-16.0 g/dL Hematocrit 41.6 37-47 % Mean Corpuscular Volume 87.8 80-100 fL Mean Corpuscular Hemoglobin 29.7 25-34 pg Mean Corpuscular Hemoglobin Concent 33.9 32-36 g/dl Platelet Count 300 130-400 K/uL Mean Platelet Volume 10.3 7.4-10.4 fL Neutrophils (%) (Auto) 65.3 % Lymphocytes (%) (Auto) 20.8 % Monocytes (%) (Auto) 6.5 % Eosinophils (%) (Auto) 7.1 % Basophils (%) (Auto) 0.2 % Neutrophils # (Auto) 7.18 1.4-6.5 K/uL Lymphocytes # (Auto) 2.29 1.2-3.4 K/uL Monocytes # (Auto) 0.72 0.11-0.59 K/uL Eosinophils # (Auto) 0.78 0-0.5 K/uL Basophils # (Auto) 0.02 0-0.2 K/uL RDW Standard Deviation 44.5 36.4-46.3 fL RDW Coefficient of Variation 13.7 11.5-14.5 % Immature Granulocyte % (Auto) 0.1 % Immature Granulocyte # (Auto) 0.01 0.00-0.02 K/uL
--- NOTE | 2016-08-25 11:22 | Progress Note ---
Progress Note Date of Service Aug 25, 2016. Progress Note ID Consult Dictated #[id number] A/P: 1. Lyme -Can continue with doxy 100mg po bid with food x 28 days -WB pending -ok for d/c when medically stable, see consult for details -thank you
[2016-08-25 11:58] VITALS: BP 127/75; PULSE 76; TEMP 36.8; O2SAT 97
--- NOTE | 2016-08-25 11:59 | INFECT. DISEASE CONSULTATION ---
DATE OF CONSULTATION: 08/25/2016 REQUESTING PHYSICIAN: Dr. Mercedes. HISTORY OF PRESENT ILLNESS: This is a 45-year-old female who was admitted after she had sudden onset of left-sided facial numbness and left-sided weakness in her upper extremity. She states that these symptoms have resolved. She did have an MRI in the Emergency Room which was unremarkable. She had had a repeat MRI of the brain and her cervical spine yesterday, both of which were unremarkable. There was some concern for a stroke and she was followed by neurology. She has been afebrile since admission. She was given a dose of Rocephin yesterday for questionable Lyme disease; however, she developed swelling and itching in her hands and this was discontinued. She initially had a white blood cell count of 14,000, this has improved to 11. A Lyme screen was done, her IgM was negative, her IgG was positive, and Western blot is pending. There was no micro done. Infectious diseases was consulted for questionable Lyme disease. She states that she did have some facial drooping on the left and numbness which has resolved completely. She has had no difficulty with talking, chewing, swallowing, or any facial movements. She states her symptoms have completely resolved and she is asking to go home. All remaining review of systems are reviewed and are unremarkable. She does not have any known history of recent tick bites, rashes, or time outdoors. PAST MEDICAL HISTORY: Significant for asthma, GERD, and migraine headaches. SURGICAL HISTORY: Significant for tubal ligation. FAMILY HISTORY: Noncontributory. SOCIAL HISTORY: Significant for daily tobacco use. She does drink on occasion. She denies any drug use. ALLERGIES: She has no known drug allergies. CURRENT MEDICATIONS: Include Gadavist, Benadryl, Flonase, Nicoderm patch, Protonix, DuoNeb, Tylenol and Zofran. She did receive a dose of Rocephin yesterday. PHYSICAL EXAMINATION: VITAL SIGNS: She is afebrile, pulse is 72, respiratory rate is 18, blood pressure is 103/66. Oxygen saturation is 95-97% on room air. GENERAL: She is awake, alert and oriented x3. She is in no acute distress. HEENT: Mucous membranes are moist. Extraocular muscles are intact. NEUROLOGIC: Cranial nerves are intact. There is no facial drooping. There is no numbness of the face on my examination. Sensation is intact. HEART: Regular. LUNGS: Clear bilaterally. ABDOMEN: Soft, nontender, nondistended. EXTREMITIES: There is no lower extremity edema bilaterally. She has full range of motion of her left and right upper extremities. SKIN: Without rash. LABORATORY STUDIES: CBC reveals a white blood cell count of 11, hemoglobin 14.1, hematocrit 41.6, and platelets are 300. Chemistry panel reveals sodium of 140, potassium 4.0, chloride 108, bicarbonate 24, BUN 13, creatinine is 0.7, glucose is 86. Lyme screen is positive IgG, negative IgM, with pending Western blot. IMAGING: As reviewed previously. ASSESSMENT AND PLAN: Facial drooping, questionable Lyme disease with positive IgG titer. At this time, I think it would be warranted to move forward with treatment. She does not wish to have any additional Rocephin, although she is unsure if her hand itching is related to the dose she received yesterday. My recommendation would be to place the patient on 100 mg of doxy twice daily with food for 28-day course. She is cleared for discharge from an infectious diseases standpoint, otherwise medically stable. Thank you for this consultation.
[2016-08-25 12:23] VITALS: BP 103/66; PULSE 72; O2SAT 96
[2016-08-25] MEDS ORDERED: DXY100 PO (12:59)
[2016-08-25] MEDS ORDERED: DOXYCYCLINE HYCLATE 100 MG CAP PO SCH (13:00)
--- NOTE | 2016-08-25 13:04 | Discharge Summary ---
Discharge Summary Date of Service Aug 25, 2016. Discharge Summary Admission Date: Aug 23, 2016 at 18:55 Discharge Date: Aug 25, 2016 Discharge Disposition: Home Principal Diagnosis: Stroke like symptoms: Likely Complicated Migraine Secondary Diagnoses/Problems: ? Lyme's disease Procedures: Carotid Doppler: Normal study. No evidence of carotid stenosis. Brain MRI: 1. No evidence of intracranial mass on this noncontrast study 2. No evidence of acute or subacute infarction 3. Small nonspecific foci of increased FLAIR signal within the right frontal white matter. Head CTA: 1. No acute intracranial abnormality. 2. Unremarkable CT angiogram of the brain. MRI C-spine: 1. Suboptimal exam due to patient motion. 2. Reversal of the normal cervical curvature consistent with muscular spasm. 3. Mild posterior disc herniations at C5-C6 and C6-C7 creating mild impact with anterior cervical cord and mild to moderate narrowing of the right neuroforamina at both levels. 4. Mild right posterior disc bulge C4-C5 5. No evidence for abnormal postcontrast enhancement Repeat MRI brain: No acute intracranial abnormality. A few punctate foci of nonspecific T2 hyperintensity within the white matter the right frontal lobe. This could be seen in the setting of minimal microvascular ischemic change or migraines. A demyelinating disease is considered less likely. Consultations: Neurology, ID Pending Studies/Follow-Up: Follow up with on 08/31/16 at 10:45AM Follow with your Neurologist on 10/04/16 at 10:40AM Complete the antibiotic course of possible Lyme's disease as advised Seek immediate medical attention if your symptoms reoccur or worsen Your blood tests:Lyme's titers and Hypercoagulable work up is pending. Follow up with your doctor for results Medication Reconciliation New Medications: Doxycycline Hyclate (Doxycycline Hyclate) 100 Mg Cap 100 MG PO BID for 28 Days, #56 CAP Continued Medications: Albuterol Hfa (Ventolin Hfa) 200 Puffs/34305 Mcg Aers 2 PUFFS PO Q4H PRN for Shortness of Breath, #18 Fluticasone Propionate (Fluticasone Propionate) 120 Sprays/6000 Mcg Inha 2 SPRAYS LAURO DAILY, #16 Omeprazole (Prilosec) 20 Mg Cap 20 MG PO DAILY PRN for Heartburn, #30 Admission Information HPI (per Admitting provider): Patient is a 45 yr old female with PMH of Asthma, GERD, Migraine, Tobacco use presents with history of sudden onset of left sided facial numbness and left sided weakness. Patient reports she noticed left sided facial numbness at around 11AM this morning which lasted for about 20-30 minutes and then she felt "shaky" and developed left arm numbness and weakness and long with left leg weakness which lasted for about 4-5 hours which resolved currently while in ED. Reports associated blurry vision (lasted for 10 minutes) and frontal and retrobulbar headache which resolved after taking Excedrin Migraine. Denies similar history in the past. Denies any history of chest pain, SOB, fever, chills, rash, facial deformity, speech problems, LOC, head trauma, abd pain, change in bowel/bladder habits, cough, wheezing, neck stiffness. MRI brain showed a small nonspecific foci of increased flair signal within the right frontal white matter. She reports no rash, tick bite or h/o lyme disease but reports she lives near to a [place] and Ig G for lyme is positive but IgM is negative. 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 No facial deformity ) Skin: normal color, warm/dry, no rash Hospital Course Stroke Like Symptoms: DD: Disseminated lyme's disease, complicated Migraine Presented with transient left sided numbness and weakness, headache, blurry vision. No meningeal signs Not a candidate for tPA- Passed the window period and symptoms resolved MRI Brain:a small nonspecific foci of increased flair signal within the right frontal white matter. Head CTA: No acute intracranial abnormality Carotid Doppler:Normal ECHO:Normal A1C:5.7 Lipid panel:wnl Will discontinue aspirin, Lipitor Neuro checks Appreciate Neurology input PT/OT Received IV ceftriaxone empirically for Lyme's disease for 2 days Lyme's Ig G is positive but IgM is negative. 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 Follow up with your doctor for results PROCEDURES: Carotid Doppler: Normal study. No evidence of carotid stenosis. Brain MRI: 1. No evidence of intracranial mass on this noncontrast study 2. No evidence of acute or subacute infarction 3. Small nonspecific foci of increased FLAIR signal within the right frontal white matter. Head CTA: 1. No acute intracranial abnormality. 2. Unremarkable CT angiogram of the brain. MRI C-spine: 1. Suboptimal exam due to patient motion. 2. Reversal of the normal cervical curvature consistent with muscular spasm. 3. Mild posterior disc herniations at C5-C6 and C6-C7 creating mild impact with anterior cervical cord and mild to moderate narrowing of the right neuroforamina at both levels. 4. Mild right posterior disc bulge C4-C5 5. No evidence for abnormal postcontrast enhancement Repeat MRI brain: No acute intracranial abnormality. A few punctate foci of nonspecific T2 hyperintensity within the white matter the right frontal lobe. This could be seen in the setting of minimal microvascular ischemic change or migraines. A demyelinating disease is considered less likely. Total time spent on discharge = 34 minutes This includes examination of the patient, discharge planning, medication reconciliation, and communication with other providers. Discharge Instructions Discharge Instructions Date of Service Aug 25, 2016. Admission Reason for Admission: Left Sided Weakness Discharge Discharge Diagnosis / Problem: Stroke like symptoms: Likely Complicated Migraine Discharge Goals Goal(s): Decrease discomfort, Improve function Activity Recommendations Activity Limitations: resume your previous activity Exercise/Sports Limitations: as tolerated Driving or Machine Use: No driving until cleared by your primary care doctor . Instructions / Follow-Up Instructions / Follow-Up Follow up with on 08/31/16 at 10:45AM Follow with your Neurologist on 10/04/16 at 10:40AM Complete the antibiotic course of possible Lyme's disease as advised Seek immediate medical attention if your symptoms reoccur or worsen Your blood tests:Lyme's titers and Hypercoagulable work up is pending. Follow up with your doctor for results Current Hospital Diet Patient's current hospital diet: Regular Diet Discharge Diet Recommended Diet: Regular Diet Pending Studies Studies pending at discharge: yes List of pending studies: Hypercoaguable workup and Lyme's titers Laboratory Results Hemoglobin A1c Test 08/23/16 15:08 Range/Units Estimated Average Glucose 117 mg/dl Hemoglobin A1c 5.7 H 4.5-5.6 % Lipid Panel Test 08/24/16 05:36 Range/Units Triglycerides Level 72 0-150 mg/dl Cholesterol Level 138 0-200 mg/dl HDL Cholesterol 35 mg/dl Cholesterol/HDL Ratio 3.9 LDL Cholesterol, Calculated 89 mg/dl Medical Emergencies . Who to Call and When: Medical Emergencies: If at any time you feel your situation is an emergency, please call 911 immediately. . Non-Emergent Contact Non-Emergency issues call your: Primary Care Provider, Neurologist Call Non-Emergent contact if: you have a fever, you have any medication questions If your weakness, numbness, headache reoccurs or worsens . . "Provider Documentation" section prepared by Oscar Mercedes. . VTE Core Measure Inpt VTE Proph given/why not?: SCD's
[2016-08-29 12:11] LABS: 18KDIGG BAND NONREACTIVE (NONREACTIVE); 23KDIGG BAND NONREACTIVE (NONREACTIVE); 23KDIGM BAND REACTIVE (NONREACTIVE); 28KDIGG BAND NONREACTIVE (NONREACTIVE); 30KDIGG BAND NONREACTIVE (NONREACTIVE); 39KDIGG BAND NONREACTIVE (NONREACTIVE); 39KDIGM BAND NONREACTIVE (NONREACTIVE); 41KDIGG BAND NONREACTIVE (NONREACTIVE); 41KDIGM BAND NONREACTIVE (NONREACTIVE); 45KDIGG BAND NONREACTIVE (NONREACTIVE); 58KDIGG BAND NONREACTIVE (NONREACTIVE); 66KDIGG BAND NONREACTIVE (NONREACTIVE); 93KDIGG BAND NONREACTIVE (NONREACTIVE)
[2016-08-30 08:00] LABS: ANTITHROMBINIII ACTIVITY** 97 % activity (80-120); B2 GLYCOPROTEIN IGA <9 SAU (<=20); B2 GLYCOPROTEIN IGG <9 SGU (<=20); B2 GLYCOPROTEIN IGM <9 SMU (<=20); LUPUS ANTICOAGULANT** TC36573X Negative (Negative); PROTEIN C ACTIVITY** TC 1777X 92 % (70-180); PROTEIN S ACT(FUNCT)**1779X 88 % (60-140)
== END 2016-08-25 13:30 | disposition home or self-care (01) | DRG 103 ==
LOC: C.EDB 14:25 → C.2E 18:55 → ENRESERV 19:11
PROVIDERS: ADMIT Internal Medicine; ATTEND Internal Medicine
DX: G43.109 Migraine with aura, not intractable, without status migrainosus (principal); A69.20 Lyme disease, unspecified; L29.9 Pruritus, unspecified; R60.0 Localized edema; T36.1X5A Adverse effect of cephalosporins and other beta-lactam antibiotics, initial encounter; Y92.239 Unspecified place in hospital as the place of occurrence of the external cause; J45.909 Unspecified asthma, uncomplicated; K21.9 Gastro-esophageal reflux disease without esophagitis; F17.210 Nicotine dependence, cigarettes, uncomplicated; Z83.2 Family history of diseases of the blood and blood-forming organs and certain disorders involving the immune mechanism; Z79.899 Other long term (current) drug therapy

== ENCOUNTER 2016-10-22 18:58 | Emergency (ER) | payer OTHER ==
[~2016-10-22] VITALS: Ht 157.5 cm; Wt 79.5 kg
[~2016-10-22 18:58] MED LIST changes: -CHLO1TAB47 PO; +DXY100 PO; +FLNIN/ NAE; +OMEP20CA9 PO; +VNTHFA/IN PO
[2016-10-22 19:04] VITALS: BP 123/78; PULSE 111; TEMP 36.8; O2SAT 95; Ht 157.5 cm; Wt 79.5 kg
== END 2016-10-22 19:28 | disposition left against medical advice (07) ==
LOC: C.EDB 18:58
DX: R07.9 Chest pain, unspecified (principal)

== ENCOUNTER 2017-05-27 22:39 | Emergency (ER) | payer OTHER ==
[~2017-05-27] VITALS: Ht 154.9 cm; Wt 71.2 kg
[2017-05-27 22:44] VITALS: TEMP 36.4; Ht 154.9 cm; Wt 71.2 kg
[2017-05-27 22:51] VITALS: O2SAT 96
[2017-05-27] MEDS ORDERED: FLUO20CA36 PO (23:29)
[2017-05-27] MEDS ORDERED: ETOD500T PO (23:29)
[2017-05-27] MEDS ORDERED: BSP/10 PO (23:29)
[2017-05-27] MEDS ORDERED: CHOLCAP2 PO (23:29)
[2017-05-27] MEDS ORDERED: FLX/5 PO (23:33)
[2017-05-27] MEDS ORDERED: IMT100 PO (23:33)
[2017-05-27] MEDS ORDERED: ASPCH81X PO (23:33)
[2017-05-27] MEDS ORDERED: ATOR-22 PO (23:33)
[2017-05-27] MEDS ORDERED: KETOROLAC TROMETHAMINE 30 MG/ML VIAL IV STA (23:35)
--- NOTE | 2017-05-27 23:46 | EMERGENCY ROOM VISIT NOTE ---
History Report prepared by Nadja: Blayne Cool Under the Supervision of: Dr. Yessy Sotomayor D.O. First contact with patient: 23:02 Chief Complaint: CHEST PAIN Stated Complaint: CHEST PAINS FOR 1 HOUR Nursing Triage Summary: Chest pain that started in her back and went into chest and into neck about one hour ago. History of Present Illness The patient is a 46 year old female who presents to the Emergency Room with complaints of persistent chest pain that began at 0 this evening. She notes that she lay down and suddenly felt a phan of sharp pain originating in her back and across the right chest radiating to her left chest and shooting pain up into her neck. She notes the pain subsided and then it came back. She currently reports tightness in her chest and neck. She denies doing anything strenuous yesterday or today. She states that she carried her four year old grandson, though she states that he is smaller in size. She denies any cough, shortness of breath, nausea, vomiting, or sweating. She states that she rarely gets heartburn. She denies feeling as though this pain is related to heartburn. She notes a family history of heart problems with her father in his 50s. She states her father had HTN and palpitations. She has a history of depression, HLD , chronic sinus infections, migraines, and asthma. She has a history of TIA last year and was hospitalized for three days. She denies a history of HTN. Source of History: patient Onset: 2129 this evening Position: chest Quality: sharp Timing: other (persistent) Associated Symptoms: + neck pain, + back pain, No SOB, No nausea, No vomiting Note: She denies any sweating. Review of Systems See HPI for pertinent positives & negatives. A total of 10 systems reviewed and were otherwise negative. Past Medical & Surgical Medical Problems: (1) Asthma (2) Asthma (3) Depression (4) History of tubal ligation (5) HLD (hyperlipidemia) (6) Migraine (7) Pneumonia (8) Sinus infection (9) TIA (transient ischemic attack) Surgical Problems: (1) H/O tubal ligation Family History Cancer Diabetes mellitus Heart disease Hypertension Lung disease Social History Smoking Status: Current Every Day Smoker Alcohol Use: none Drug Use: none Marital Status: in relationship Housing Status: lives with significant other Occupation Status: unemployed Current/Historical Medications Scheduled Aspirin (Aspirin Chewable), 81 MG PO DAILY Atorvastatin (Lipitor), 20 MG PO DAILY Cholecalciferol (D3-50), 50,000 UNIT PO 2XWK Etodolac (Etodolac Er), 2 TABS PO DAILY Fluoxetine HCl (Fluoxetine HCl), 20 MG PO BID Fluticasone Propionate (Fluticasone Propionate), 2 SPRAYS LAURO DAILY Sumatriptan Succinate (Imitrex), 100 MG PO UD Scheduled PRN Albuterol Hfa (Ventolin Hfa), 2 PUFFS PO Q4H PRN for Wheezing Buspirone HCl (Buspirone HCl), 5-10 MG PO DAILY PRN for panic attacks Cyclobenzaprine HCl (Cyclobenzaprine HCl), 5 MG PO HS PRN for Muscle Spasms Omeprazole (Prilosec), 20 MG PO DAILY PRN for Heartburn Allergies Coded Allergies: [place] (Verified Allergy, Unknown, ANAPHYLAXIS, 08/23/16) Physical Exam Vital Signs Date Time Temp Pulse Resp B/P (MAP) Pulse Ox O2 Delivery O2 Flow Rate FiO2 05/28/17 02:12 70 16 116/71 98 Room Air 05/28/17 02:05 70 05/28/17 00:22 75 18 115/79 98 Room Air 05/27/17 22:57 81 05/27/17 22:51 96 Room Air 05/27/17 22:51 96 Room Air 05/27/17 22:44 36.4 84 18 122/79 96 Room Air Physical Exam HEENT: Head - normocephalic and atraumatic Pupils are equal, round, and reactive to light. Extraocular eye muscles are intact, and sclera are anicteric. Nose - moist nasal mucosa without discharge. Mouth - moist buccal mucosa. Oropharynx is nonerythematous and there is no tonsillar exudate or edema noted. Neck: Supple; no JVD, nuchal rigidity, cervical lymphadenopathy. Chest: Reproducible discomfort with palpation over anterior chest wall. Heart: Regular rate and rhythm. There is a normal S1 and S2 with no murmurs, clicks, or gallops appreciated. Lungs: Clear to auscultation bilaterally with no wheezes, rales, or rhonchi. Abdomen: Soft, completely nontender, nondistended, with good bowel sounds. There are no palpable pulsatile masses or hepatosplenomegaly. There is no guarding, rigidity, or rebound noted. Back: Obvious rib dysfunction at right 6th thoracic rib, exquisite tenderness with palpation. Extremities: No evidence of cyanosis, clubbing, or edema. There are easily palpable peripheral pulses. Skin: warm and dry with good turgor and no rashes. Medical Decision & Procedures ER Provider Diagnostic Interpretation: Radiology results as stated below per my review and interpretation: Narrow mediastinum. No cardiomegaly, No pneumothorax. Laboratory Results 05/27/17 23:50 Red Blood Count 4.51, Mean Corpuscular Volume 85.6, Mean Corpuscular Hemoglobin 29.9, Mean Corpuscular Hemoglobin Concent 35.0, Mean Platelet Volume 9.8, Neutrophils (%) (Auto) 56.5, Lymphocytes (%) (Auto) 30.6, Monocytes (%) (Auto) 6.5, Eosinophils (%) (Auto) 6.0, Basophils (%) (Auto) 0.2, Neutrophils # (Auto) 6.86, Lymphocytes # (Auto) 3.72, Monocytes # (Auto) 0.79, Eosinophils # (Auto) 0.73, Basophils # (Auto) 0.03 05/27/17 23:50 Test 05/27/17 23:50 05/28/17 01:23 White Blood Count 12.16 K/uL (4.8-10.8) Red Blood Count 4.51 M/uL (4.2-5.4) Hemoglobin 13.5 g/dL (12.0-16.0) Hematocrit 38.6 % (37-47) Mean Corpuscular Volume 85.6 fL (80-100) Mean Corpuscular Hemoglobin 29.9 pg (25-34) Mean Corpuscular Hemoglobin Concent 35.0 g/dl (32-36) Platelet Count 349 K/uL (130-400) Mean Platelet Volume 9.8 fL (7.4-10.4) Neutrophils (%) (Auto) 56.5 % Lymphocytes (%) (Auto) 30.6 % Monocytes (%) (Auto) 6.5 % Eosinophils (%) (Auto) 6.0 % Basophils (%) (Auto) 0.2 % Neutrophils # (Auto) 6.86 K/uL (1.4-6.5) Lymphocytes # (Auto) 3.72 K/uL (1.2-3.4) Monocytes # (Auto) 0.79 K/uL (0.11-0.59) Eosinophils # (Auto) 0.73 K/uL (0-0.5) Basophils # (Auto) 0.03 K/uL (0-0.2) RDW Standard Deviation 42.5 fL (36.4-46.3) RDW Coefficient of Variation 13.7 % (11.5-14.5) Immature Granulocyte % (Auto) 0.2 % Immature Granulocyte # (Auto) 0.03 K/uL (0.00-0.02) Anion Gap 9.0 mmol/L (3-11) Est Creatinine Clear Calc Drug Dose 71.2 ml/min Estimated GFR () 89.5 Estimated GFR (Non- 77.2 BUN/Creatinine Ratio 20.3 (10-20) Calcium Level 9.2 mg/dl (8.5-10.1) Total Bilirubin 0.2 mg/dl (0.2-1) Direct Bilirubin < 0.1 mg/dl (0-0.2) Aspartate Amino Transf (AST/SGOT) 13 U/L (15-37) Alanine Aminotransferase (ALT/SGPT) 13 U/L (12-78) Alkaline Phosphatase 95 U/L (45-117) Total Protein 7.2 gm/dl (6.4-8.2) Albumin 3.3 gm/dl (3.4-5.0) Troponin I < 0.015 ng/ml (0-0.045) Laboratory results per my review. Medications Administered Medications (Trade) Dose Ordered Sig/Mauri Route Start Time Stop Time Status Last Admin Dose Admin Ketorolac Tromethamine (Toradol Inj) 30 mg NOW STAT IV 05/27/17 23:35 05/27/17 23:37 DC 05/27/17 23:51 30 MG Procedure 2335: Ordered Toradol 30 mg IV ECG Per My Interpretation Indication: chest pain Rate (beats per minute): 76 Rhythm: normal sinus Findings: ST depression (in L2, L3, and aVF), no ectopy ED Course 2321: The patient was evaluated in room A11B. A complete history and physical examination were performed. Nursing notes and previous electronic medical records were reviewed. IV lock was established and labs were drawn as above. A 12-lead EKG was obtained as described above. The patient had a portable chest x-ray which was unremarkable. Patient was given a dose of IV Toradol. 0051: I reassessed the patient at this time. She is feeling better. The patient' s troponin will be re-evaluated. 0205: I reassessed the patient at this time. She is feeling better and resting comfortably. I discussed the results and treatment plan with the patient. I answered all pertaining questions that she had. She expressed understanding and verbalized agreement. The patient will be discharged home. Medical Decision The patient is a 46 year old female who presents to the ED with chest pain. Differential diagnosis includes cardiac ischemia, PNX, pleurisy, aortic dissection, and costochondritis. Lab interpretation: White blood cell count 12.1; stable H&H; troponin less than 0.015; normal LFTs; glucose 105; normal renal function second Troponin is negative. This is a 46-year-old female patient presents to the emergency department with chest pain and back pain. On physical exam, the patient has reproducible discomfort across anterior chest wall and throughout her mid back, most specifically over the right mid rib cage. The patient has an obvious protruding right posterior sixth thoracic rib. There is exquisite tenderness to palpation over that rib. There are no skin lesions overlying that rib. I believe that this is the cause of the patient's discomfort as the pain did seem to start in her back and radiate around to her chest. However, the patient does have some very subtle EKG changes which I do not believe are acute. She had 2 troponins which were both negative. I have asked the patient to follow-up with her PCP for an outpatient stress echo. She is to avoid any strenuous activity until that follow-up. If she has worsening symptoms, she should return to the emergency department immediately. Otherwise, apply heat to her back and use NSAIDs for pain. Medication Reconcilliation Current Medication List: was personally reviewed by me Blood Pressure Screening Patient's blood pressure: Normal blood pressure Impression Primary Impression: Rib cage dysfunction Scribe Attestation The scribe's documentation has been prepared under my direction and personally reviewed by me in its entirety. I confirm that the note above accurately reflects all work, treatment, procedures, and medical decision making performed by me. Departure Information Dispostion Home / Self-Care Referrals Cora Salas D.O. (PCP) Forms Call Back Authorization, HOME CARE DOCUMENTATION FORM, IMPORTANT VISIT INFORMATION Patient Instructions My [employer] Additional Instructions Rest. Limit any strenuous activity until follow up. Contact PCP for outpatient stress test and cardiac echo. Motrin - 800mg every 6-8 hours with food for pain. Follow up with chiropractor for rib dysfunction on the right
[2017-05-28 00:02] LABS: BASO % 0.2 %; BASO ABS # 0.03 K/uL (0-0.2); EOS ABS # 0.73 K/uL (0-0.5); HEMATOCRIT 38.6 % (37-47); HEMOGLOBIN 13.5 g/dL (12.0-16.0); IG# 0.03 K/uL (0.00-0.02); LYMPH % 30.6 %; LYMPH ABS # 3.72 K/uL (1.2-3.4); MEAN CELL VOLUME 85.6 fL (80-100); MEAN CORPUSCULAR HEMOGLOBIN 29.9 pg (25-34); MEAN PLATELET VOLUME 9.8 fL (7.4-10.4); MONO % 6.5 %; MONO ABS # 0.79 K/uL (0.11-0.59); NEUT % 56.5 %; NEUT ABS # 6.86 K/uL (1.4-6.5); PLATELET COUNT 349 K/uL (130-400); RED CELL DISTRIBUTION WIDTH CV 13.7 % (11.5-14.5); RED CELL DISTRIBUTION WIDTH SD 42.5 fL (36.4-46.3); WHITE BLOOD COUNT 12.16 K/uL (4.8-10.8)
[2017-05-28 00:23] LABS: ALBUMIN 3.3 gm/dl (3.4-5.0); ALT/SGPT 13 U/L (12-78); AST/SGOT 13 U/L (15-37); BLOOD UREA NITROGEN 18 mg/dl (7-18); CALCIUM 9.2 mg/dl (8.5-10.1); CARBON DIOXIDE 26 mmol/L (21-32); GLUCOSE 105 mg/dl (70-99); POTASSIUM 3.7 mmol/L (3.5-5.1); SODIUM 140 mmol/L (136-145)
[2017-05-28 00:28] LABS: ALKALINE PHOSPHATASE 95 U/L (45-117); TOTAL PROTEIN 7.2 gm/dl (6.4-8.2)
[2017-05-28 02:12] VITALS: BP 116/71; PULSE 70; O2SAT 98
--- NOTE | 2017-05-28 06:58 | DIAGNOSTIC IMAGING REPORT ---
CHEST ONE VIEW PORTABLE CLINICAL HISTORY: Chest and back pain. COMPARISON STUDY: Chest radiograph November 24, 2015. FINDINGS: Linear left basilar opacity is suggestive of atelectasis. There is no pneumothorax or pleural effusion. There is no consolidation to suggest pneumonia. Cardiomediastinal silhouette is normal. IMPRESSION: No acute cardiopulmonary findings. Electronically signed by: Brian Morrison M.D. 05/28/2017 6:57 AM Dictated Date/Time: 05/28/2017 6:56 AM
== END 2017-05-28 02:20 | disposition home or self-care (01) ==
LOC: C.EDB 22:40 → C.EDA 05-28 02:20
DX: M99.08 Segmental and somatic dysfunction of rib cage (principal); R94.31 Abnormal electrocardiogram [ECG] [EKG]; J45.909 Unspecified asthma, uncomplicated; F32.9 Major depressive disorder, single episode, unspecified; E78.5 Hyperlipidemia, unspecified; G43.909 Migraine, unspecified, not intractable, without status migrainosus; Z79.82 Long term (current) use of aspirin; F17.200 Nicotine dependence, unspecified, uncomplicated; Z87.01 Personal history of pneumonia (recurrent); Z86.73 Personal history of transient ischemic attack (TIA), and cerebral infarction without residual deficits; Z83.3 Family history of diabetes mellitus; Z82.49 Family history of ischemic heart disease and other diseases of the circulatory system; Z83.6 Family history of other diseases of the respiratory system; Z91.018 Allergy to other foods

== ENCOUNTER 2018-03-05 01:51 | Inpatient (IN) ==
[2018-03-05 02:33] LABS: Basophils # (auto) 0.04 K/uL (0-0.2); Basophils % (auto) 0.2 %; Eosinophils # (auto) 0.08 K/uL (0-0.5); Eosinophils % (auto) 0.5 %; Hemoglobin 13.4 g/dL (12.0-16.0); Immature Granulocytes # (auto) 0.05 K/uL (0.00-0.02); Immature Granulocytes % (auto) 0.3 %; Lymphocytes # (auto) 4.29 K/uL (1.2-3.4); Lymphocytes % (auto) 25.2 %; Mean Corpuscular Hgb Conc 33.5 g/dL (32-36); Mean Corpuscular Volume 85.1 fL (80-100); Mean Platelet Volume 9.9 fL (7.4-10.4); Monocytes # (auto) 1.13 K/uL (0.11-0.59); Monocytes % (auto) 6.6 %; Neutrophils # (auto) 11.41 K/uL (1.4-6.5); Neutrophils % (auto) 67.2 %; Platelet Count 372 K/uL (130-400); RDW Coefficient of Variation 14.5 % (11.5-14.5); RDW Standard Deviation 45.3 fL (36.4-46.3)
[2018-03-05 02:54] LABS: Alanine Aminotransferase 15 U/L (12-78); Albumin Level 3.2 gm/dl (3.4-5.0); Aspartate Aminotransferase 11 U/L (15-37); BUN Creatinine Ratio 12.4 (10-20); Bilirubin Direct < 0.1 mg/dl (0-0.2); Blood Urea Nitrogen 11 mg/dl (7-18); Calcium 8.6 mg/dl (8.5-10.1); Carbon Dioxide 25 mmol/L (21-32); Chloride 105 mmol/L (98-107); Creatinine Clr Calc Pharmacy 78.9 ml/min; Est GFR (African American) 90.1; Est GFR (Non-African American) 77.7; Glucose 148 mg/dl (70-99); Potassium 3.3 mmol/L (3.5-5.1); Sodium 138 mmol/L (136-145)
[2018-03-05 02:59] LABS: Albumin Globulin Ratio 0.8 (0.9-2); Alkaline Phosphatase 98 U/L (45-117); Bilirubin,Total 0.2 mg/dl (0.2-1); C Reactive Protein 2.02 mg/dl (0-0.29); Total Protein 7.2 gm/dl (6.4-8.2); Troponin I < 0.015 ng/ml (0-0.045)
[2018-03-05] MEDS ORDERED: ALBUT/IPRATROP 3MG/0.5MG NEB 3 ML VIAL NEB STA (03:20)
[2018-03-05] MEDS ORDERED: methylPREDNISolone 125 MG/2 ML VIAL IV STA (03:20)
[2018-03-05 05:13] LABS: Appearance Urine Clear (Clear); Bacteria Urine Automated Negative (Negative); Bilirubin Urine Negative (Negative); Cast Urine Automated 0 /lpf (0-5); Color Urine Yellow; Glucose Urine UA Negative (Negative); Ketones Urine Negative (Negative); Leukocyte Esterase Urine Negative (Negative); Nitrite Urine Negative (Negative); Protein Urine Negative (Negative); Specific Gravity Urine 1.017 (1.000-1.030); Urobilinogen Urine Negative (Negative)
[2018-03-05] MEDS: LEVOFLOXACIN/D5W 750 MG/150 ML BAG IV SCH (06:38)
[2018-03-05] MEDS ORDERED: PANTOprazole 40 MG TAB PO PRN (07:04)
[2018-03-05] MEDS ORDERED: NITROGLYCERIN SL 0.4 MG/TAB TAB SL PRN (07:04)
[2018-03-05] MEDS ORDERED: ACETAMINOPHEN 325 MG TAB PO PRN (07:04)
[2018-03-05] MEDS ORDERED: POTASSIUM CHLORIDE 20 MEQ TABCR PO STA (07:04)
[2018-03-05] MEDS ORDERED: ONDANSETRON INJ 2 MG/ML 2 ML VIAL IV PRN (07:04)
[2018-03-05] MEDS ORDERED: ALBUT/IPRATROP 3MG/0.5MG NEB 3 ML VIAL NEB PRN (07:04)
[2018-03-05] MEDS ORDERED: CYCLOBENZAPRINE HCL 5 MG TAB PO PRN (07:04)
[2018-03-05] MEDS ORDERED: ALBUTEROL HFA 8 GM INHALER INH PRN (07:04)
[2018-03-05] MEDS: VENLAFAXINE HCL XR 37.5 MG CAPXR PO SCH (07:47)
[2018-03-05] MEDS: SODIUM CHLORIDE 0.9% 1000ML 1,000 ML IV SCH ×2 (07:48→17:40)
--- NOTE | 2018-03-05 08:06 | XRay Report ---
XR chest 1V portable CLINICAL HISTORY: sob/fever COMPARISON STUDY: Chest radiograph May 27, 2017. FINDINGS: Lung volumes are normal. There is no pneumothorax or pleural effusion. There is no consolid ation or evidence for pulmonary edema. Cardiac size is normal. Mediastinal contours are normal. IMPRESSION: No acute cardiopulmonary findings. Electronically signed by: Brian Morrison M.D. 03/05/2018 8:05 AM
--- NOTE | 2018-03-05 08:45 | History and Physical Report ---
DATE OF ADMISSION: 03/05/2018 CHIEF COMPLAINT: Shortness of breath and fever. HISTORY OF PRESENT ILLNESS: This is a 47-year-old female with past medical history significant for migraines, hyperlipidemia, anxiety, depression, tobacco abuse, who presents with ongoing cough and shortness of breath for about a week since . She is having cough with on and off yellowish phlegm and shortness of breath, and she saw her family doctor on 03/01/2018 as she was not feeling well and had fever and she was prescribed prednisone and also doxycycline, but she is not getting better. which prompted her to come to the ER. In the ER, she was saturating 86% to 89% on room air, on 2 L she is saturating okay at 94%. She had temperature spike, somewhat tachycardic. Received steroid and breathing treatment in the ER. Currently, she says she is feeling better. She has some mild headache, denies any dizziness, no blurred visions, no earache. She has some runny nose and sore throat, no difficulty swallowing. . Denies any chest pain, not feeling nausea or abdominal pain. Normal bowel and bladder movements. No hematuria, no hematochezia, no black stools. ALLERGIES: STRAWBERRY. PAST MEDICAL HISTORY: As mentioned above. PAST SURGICAL HISTORY: Arthrocentesis on the left side for the bursitis, ligation of oviducts. MEDICATIONS: As per patient. Currently, patient is on doxycycline and prednisone tapering dose, BuSpar 10 mg b.i.d. p.r.n., albuterol 2 puffs every 4 hours p.r.n., Flonase 2 sprays into each nostril daily, sumatriptan 100 mg p.r.n., ibuprofen 600 mg p.o. t.i.d. p.r.n., Effexor XR 37.5 mg p.o. daily, atorvastatin 20 mg p.o. daily, cyclobenzaprine 5 mg p.o. at bedtime p.r.n., aspirin 81 mg p.o. daily, omeprazole 20 mg p.o. daily. FAMILY HISTORY: Significant for mother who has xerosis. She has a sister with eczema and breast cancer. Grandmother maternal has pancreatic cancer. SOCIAL HISTORY: . Smokes 1 pack a day for the last 24 years. Alcohol occasional. No drug use. REVIEW OF SYSTEMS: As per HPI. Rest of review of symptoms negative. PHYSICAL EXAMINATION: GENERAL: Patient is alert, oriented, not in acute distress. VITAL SIGNS: Temperature 37.8, pulse 110, respiratory rate 18, blood pressure 110/60, oxygen saturation 98%-96% on room air, currently 94% on 2 L. HEENT: No pallor, no icterus. Pupils equal, round, and reactive to light. Oral mucosa moist. No pharyngitis seen. NECK: No JVD, no neck masses, no carotid bruits. CARDIOVASCULAR SYSTEM: S1 and S2 heard, regular rate and rhythm, no murmurs. RESPIRATORY SYSTEM: Normal AP diameter. No accessory muscle use. Diminished bilateral breath sounds. No wheezing, no crackles. GASTROINTESTINAL: Abdomen is soft, bowel sounds present, nontender, no distention. CENTRAL NERVOUS SYSTEM: Cranial nerves II through XII grossly intact, nonfocal. EXTREMITIES: No edema, no erythema. LABORATORY DATA: WBC 17,000, hemoglobin 13.4, hematocrit 40, platelets 372. Sodium 138, potassium 3.3, chloride 105, bicarbonate 25, BUN 11, creatinine 0.8, serum glucose 148. Lactate 1.9, calcium 8.6. Total bilirubin 0.2, direct bilirubin less than 0.1, AST 11, ALT 15, alkaline phosphatase 98. Troponin I less than 0.015. C-reactive protein 2. Procalcitonin less than 0.05. Urinalysis: Trace blood. Influenza A and B negative. IMAGING: Chest x-ray: No acute findings seen. EKG: Sinus tachycardia with rate of 117, no acute nonspecific T wave abnormalities seen. ASSESSMENT AND PLAN: This is a 47-year-old female who presents with shortness of breath, fever, and cough, hypoxia on room air ,possible chronic obstructive pulmonary disease exacerbation with pneumonia. 1. Shortness of breath, fever, and cough, hypoxia on room air,most likely secondary to copd and possible pneumonia atypical, no obvious infiltrate on chest x-ray. Failed outpatient treatment with doxycycline and prednisone. 2. Chronic obstructive pulmonary disease exacerbation secondary to pneumonia. We will place her on IV Solu-Medrol 40 b.i.d., DuoNebs round the clock and then p.r.n., IV Levaquin. Follow sputum culture and blood cultures. Continue oxygenation. Close monitoring on the tele floor. Will also check for influenza A and B PCR and follow the results. 2. Hypokalemia. Will replace. 3. History of migraines, on sumatriptan p.r.n., currently stable. 4. History of anxiety and depression, on Effexor and BuSpar p.r.n. 5. Hyperlipidemia. Continue statin. 6. Gastroesophageal reflux disease. Continue Prilosec. 7. Deep venous thrombosis prophylaxis. Sequential compression devices for now. 8. Disposition. Close monitoring on tele floor. Level 1 full code. MTDD
[2018-03-05] MEDS ORDERED: LEVOFLOXACIN CONSULT ACTIVE SCH (08:53)
[2018-03-05 09:36] LABS: Influenza A virus by PCR Neg for Influ A (Neg); Influenza B virus by PCR Neg for Influ B (Neg)
[2018-03-05] MEDS: FLUTICASONE PROPIONATE NA SPR 16 GM BTL SCH (10:41)
[2018-03-05] MEDS: methylPREDNISolone 40 MG in SYRINGE 0 ML IV SCH ×2 (10:42→20:41)
[2018-03-05] MEDS: ATORVASTATIN 20 MG TAB PO SCH (10:42)
[2018-03-05] MEDS: ASPIRIN 81 MG ECTAB PO SCH (10:42)
[2018-03-05] MEDS: ALBUT/IPRATROP 3MG/0.5MG NEB 3 ML VIAL NEB SCH ×3 (14:31→19:27)
--- NOTE | 2018-03-05 18:37 | Emergency Department Note ---
Entered by Phill Angelo acting as a scribe for Yessy Sotomayor DO History of Present Illness General Chief complaint: Fever Stated complaint: FEVER Time Seen by Provider: 03/05/18 02:30 Source: patient History of Present Illness Provider complaint: Fever Onset (ago): week(s) 1 Location: head and chest Radiation: non-radiation Pain Consistency: + constant Maximum Pain Intensity: 9 Relieved By: + none Associated symptoms: + cough and + shortness of breath The patient is a 47 year old female who presents to the Emergency Room with complaints of constant fevers, cough and shortness of breath for the past week. About 4 days ago she was diagnosed with pneumonia and given Doxycycline and 50mg Prednisone, but she did not have a chest Xray. She does have a history of pneumonia and as well borderline emphysema for she is a smoker. To help with this she does use an inhaler year round. Home Medications Home Medications Medication Instructions Recorded Confirmed Type albuterol sulfate [Ventolin HFA] 2 puff INHALATION Q4 PRN 03/05/18 03/05/18 History aspirin 81 mg PO DAILY 03/05/18 03/05/18 History atorvastatin 20 mg PO DAILY 03/05/18 03/05/18 History buspirone 5 - 10 mg PO DAILY PRN 03/05/18 03/05/18 History cyclobenzaprine 5 mg PO HS PRN 03/05/18 03/05/18 History fluticasone [Flonase Allergy 2 spray INTRANASAL DAILY 03/05/18 03/05/18 History Relief] ibuprofen 600 mg PO TID PRN 03/05/18 03/05/18 History sumatriptan succinate 100 mg PO UD PRN 03/05/18 03/05/18 History venlafaxine 37.5 mg PO DAILY 03/05/18 03/05/18 History Allergies Allergy/AdvReac Type Severity Reaction Status Date / Time strawberry Allergy Unknown ANAPHYLAXIS Verified 03/05/18 06:34 Past Med/Surg History Medical History Depression (Chronic) HLD (hyperlipidemia) (Chronic) Asthma (Chronic) Sinus infection (Chronic) Migraine (Chronic) TIA (transient ischemic attack) (Resolved) Surgical History H/O tubal ligation (Resolved) Family History Other Family history non-contributory Social History Current Living Situation: Family Other Information That Helps Us Care for You: No Feels Safe at Home: Yes Smoking Status: Current every day smoker Cigarettes per Day: 20 Hx Alcohol Use: No Hx Substance Use: No Beliefs That Will Affect Care: None Communication Ability: Effective Review of Systems See HPI for pertinent positives & negatives. and A total of 10 systems reviewed and were otherwise negative Physical Exam Vital Signs Vital Signs - 24 hr 03/05/18 01:57 03/05/18 03:51 03/05/18 05:18 Temperature 37.8 C H Temperature Source Oral Sepsis Recent Fever Within 48 Hours Yes Sepsis New/Unexplained Change in Mental Status No Sepsis Action Taken by Nursing No Action Required Pulse Rate 132 H Pulse Rate [Right Finger] Pulse Rate [Right Radial] 116 H Pulse Rhythm [Right Finger] Pulse Strength [Right Finger] Respiratory Rate 18 18 Respiratory Effort / Characteristics Respiratory Depth Respiratory Pattern Blood Pressure 123/74 Blood Pressure [Left Arm] 112/66 Blood Pressure Mean 90 Blood Pressure Mean [Left Arm] 81 Blood Pressure Position [Left Arm] Pulse Oximetry 92 89 L 86 L Oxygen Delivery Method Room Air Room Air Room Air Oxygen Flow Rate 03/05/18 05:42 03/05/18 06:35 03/05/18 06:54 Temperature 36.9 C 36.6 C Temperature Source Oral Oral Sepsis Recent Fever Within 48 Hours Sepsis New/Unexplained Change in Mental Status Sepsis Action Taken by Nursing Pulse Rate Pulse Rate [Right Finger] Pulse Rate [Right Radial] 110 H 112 H 103 H Pulse Rhythm [Right Finger] Pulse Strength [Right Finger] Respiratory Rate 18 18 20 Respiratory Effort / Characteristics Non-Labored Spontaneous Respiratory Depth Normal Respiratory Pattern Blood Pressure Blood Pressure [Left Arm] 110/60 147/86 H 113/70 Blood Pressure Mean Blood Pressure Mean [Left Arm] 76 106 84 Blood Pressure Position [Left Arm] Pulse Oximetry 94 94 91 Oxygen Delivery Method Nasal Cannula Nasal Cannula Nasal Cannula Oxygen Flow Rate 2 2 2 03/05/18 08:18 03/05/18 11:12 03/05/18 14:31 Temperature 36.8 C Temperature Source Oral Sepsis Recent Fever Within 48 Hours Sepsis New/Unexplained Change in Mental Status Sepsis Action Taken by Nursing Pulse Rate 102 H Pulse Rate [Right Finger] 86 75 Pulse Rate [Right Radial] Pulse Rhythm [Right Finger] Pulse Strength [Right Finger] Respiratory Rate 18 14 Respiratory Effort / Characteristics Non-Labored Spontaneous Respiratory Depth Normal Respiratory Pattern Regular Blood Pressure Blood Pressure [Left Arm] 118/74 Blood Pressure Mean Blood Pressure Mean [Left Arm] 88 Blood Pressure Position [Left Arm] Lying Pulse Oximetry 91 97 Oxygen Delivery Method Room Air Room Air Oxygen Flow Rate 03/05/18 15:26 03/05/18 15:58 Temperature 36.7 C Temperature Source Oral Sepsis Recent Fever Within 48 Hours Sepsis New/Unexplained Change in Mental Status Sepsis Action Taken by Nursing Pulse Rate 76 Pulse Rate [Right Finger] 81 Pulse Rate [Right Radial] Pulse Rhythm [Right Finger] Regular Pulse Strength [Right Finger] Normal Respiratory Rate 17 Respiratory Effort / Characteristics Non-Labored Non-Labored Respiratory Depth Normal Normal Respiratory Pattern Regular Blood Pressure Blood Pressure [Left Arm] 116/70 Blood Pressure Mean Blood Pressure Mean [Left Arm] 85 Blood Pressure Position [Left Arm] Lying Pulse Oximetry 91 Oxygen Delivery Method Room Air Oxygen Flow Rate HEENT: Head - normocephalic and atraumatic Pupils are equal, round, and reactive to light. Extraocular eye muscles are intact, and sclera are anicteric. Nose - moist nasal mucosa without discharge. Mouth - moist buccal mucosa. Oropharynx is nonerythematous and there is no tonsillar exudate or edema noted. Neck: Supple; no JVD, nuchal rigidity, cervical lymphadenopathy, or auscultated bruits. Heart: Tachycardic rate and regular rhythm. There is a normal S1 and S2 with no murmurs, clicks, or gallops appreciated. Lungs: No rales or rhonchi. Inspiratory and expiratory wheezing in the lungs with diminished breath sounds at bases. Abdomen: Soft, completely nontender, nondistended, with good bowel sounds. There are no palpable pulsatile masses or hepatosplenomegaly. There is no guarding, rigidity, or rebound noted. Extremities: No evidence of cyanosis, clubbing, or edema. There are easily palpable peripheral pulses. Skin: warm and diaphoretic with good turgor and no rashes. Course 0314: Past medical records reviewed. The patient was evaluated in room B07, and a complete history and physical examination were performed. An IV lock were initiated and labs were drawn as above. The patient was observed on the shipper and pulse oximeter. She had a twelve-lead EKG as described above. 0320: Albuterol 3ml NEB, Solumedrol 125mg IV. The patient had a chest x-ray as described above. 0445: I reevaluated the patient and updated her on the imaging and lab results. He had significant improvement in her symptoms with the nebulizer treatment but remained hypoxic. We also discussed the plan of treatment. 0530: I spoke to Dr. Almas Winters Hospitalist about the patient's case and he is going to accept her for further evaluation. Consultations Consultation #1: I spoke to Dr. Almas Jarvis about the patient 's case and he is going to accept her for further evaluation. Time: 05:30 Administered Medications Acetaminophen (Tylenol) 650 mg PO Q4H PRN PRN Reason: Pain or Fever Stop: 04/04/18 07:03 Last Admin: 03/05/18 11:45 Dose: 650 mg Albuterol (Duoneb) 3 ml NEB QIDR [facility] Stop: 04/04/18 07:59 Last Admin: 03/05/18 14:31 Dose: 3 ml Admin: 03/05/18 14:31 Dose: Not Given Admin: 03/05/18 14:31 Dose: Not Given Aspirin (Ecotrin) 81 mg PO DAILY [facility] Stop: 04/04/18 08:59 Last Admin: 03/05/18 10:42 Dose: 81 mg Atorvastatin Calcium (Lipitor) 20 mg PO DAILY [facility] Stop: 04/04/18 08:59 Last Admin: 03/05/18 10:42 Dose: 20 mg Fluticasone Propionate (Flonase) 2 sprays NA DAILY [facility] Stop: 04/04/18 09:59 Last Admin: 03/05/18 10:41 Dose: 2 sprays Levofloxacin/Dextrose (Levaquin/D5w) 750 mg in 150 mls @ 100 mls/hr IV Q24H [facility] Stop: 03/12/18 06:21 Last Infusion: 03/05/18 08:15 Dose: Admin: 03/05/18 06:38 Dose: 100 mls/hr Sodium Chloride (Nss 1000ml) 1,000 mls @ 100 mls/hr IV .Q10H [facility] Stop: 04/04/18 07:29 Last Admin: 03/05/18 17:40 Dose: 100 mls/hr Infusion: 03/05/18 17:40 Dose: 100 mls/hr Admin: 03/05/18 07:48 Dose: 100 mls/hr Methylprednisolone 40 mg/ (Syringe) 0.64 mls @ 1.5 mls/min IV Q12H [facility] Stop: 04/04/18 09:59 Last Admin: 03/05/18 10:42 Dose: 1.5 mls/min Venlafaxine HCl (Effexor Extended Release) 37.5 mg PO DAILY [facility] Stop: 04/04/18 08:59 Last Admin: 03/05/18 07:47 Dose: 37.5 mg Discontinued Medications Albuterol (Duoneb) 3 ml NEB [facility] Stop: 03/05/18 03:21 Last Admin: 03/05/18 03:26 Dose: 3 ml Methylprednisolone (Solumedrol) 125 mg IV NOW STA Stop: 03/05/18 03:21 Last Admin: 03/05/18 03:26 Dose: 125 mg Potassium Chloride (Klor-Con M20) 40 meq PO NOW STA Stop: 03/05/18 07:05 Last Admin: 03/05/18 07:46 Dose: 40 meq Medical Decision Making Differential Diagnosis The patient is a 47 year old female who presents to the ED with shortness of breath. Differential diagnosis includes PNA, bronchitis, and exacerbation of emphysema. Medical Records Attestation: I reviewed the patient's medical records. Home Medications Current Medication List: was personally reviewed by me Laboratory Data Attestation: I reviewed the patient's lab results. Result diagrams: 03/05/18 02:11 03/05/18 02:11 Lab Results 03/05/18 03/05/18 03/05/18 Range/Units 02:11 02:11 02:11 WBC 17.00 H (4.8-10.8) K/uL RBC 4.70 (4.2-5.4) M/uL Hgb 13.4 (12.0-16.0) g/dL Hct 40.0 (37-47) % MCV 85.1 (80-100) fL MCH 28.5 (25-34) pg MCHC 33.5 (32-36) g/dL RDW Std Deviation 45.3 (36.4-46.3) fL RDW Coeff of Madi 14.5 (11.5-14.5) % Plt Count 372 (130-400) K/uL MPV 9.9 (7.4-10.4) fL Immature Gran % (Auto) 0.3 % Neut % (Auto) 67.2 % Lymph % (Auto) 25.2 % [place] % (Auto) 6.6 % Eos % (Auto) 0.5 % Baso % (Auto) 0.2 % Immature Gran # (Auto) 0.05 H (0.00-0.02) K/uL Neut # (Auto) 11.41 H (1.4-6.5) K/uL Lymph # (Auto) 4.29 H (1.2-3.4) K/uL [place] # (Auto) 1.13 H (0.11-0.59) K/uL Eos # (Auto) 0.08 (0-0.5) K/uL Baso # (Auto) 0.04 (0-0.2) K/uL ESR 12 (0-21) mm/hr Sodium 138 (136-145) mmol/L Potassium 3.3 L (3.5-5.1) mmol/L Chloride 105 (98-107) mmol/L Carbon Dioxide 25 (21-32) mmol/L Anion Gap 8.0 (3-11) BUN 11 (7-18) mg/dl Creatinine 0.89 (0.6-1.2) mg/dl Est Cr Clr Drug Dosing 78.9 ml/min Est GFR ( Amer) 90.1 Est GFR (Non-Af Amer) 77.7 BUN/Creatinine Ratio 12.4 (10-20) Glucose 148 H (70-99) mg/dl Lactate (0.4-2.0) mmol/L Calcium 8.6 (8.5-10.1) mg/dl Total Bilirubin 0.2 (0.2-1) mg/dl Direct Bilirubin < 0.1 (0-0.2) mg/dl AST 11 L (15-37) U/L ALT 15 (12-78) U/L Alkaline Phosphatase 98 (45-117) U/L Troponin I < 0.015 (0-0.045) ng/ml C-Reactive Protein 2.02 H (0-0.29) mg/dl Total Protein 7.2 (6.4-8.2) gm/dl Albumin 3.2 L (3.4-5.0) gm/dl Globulin 4.0 (2.5-4.0) gm/dl Albumin/Globulin Ratio 0.8 L (0.9-2) Procalcitonin (0-0.5) ng/ml Urine Color Urine Appearance (Clear) Urine pH (4.5-7.5) Ur Specific [place] (1.000-1.030) Urine Protein (Negative) Urine Glucose (UA) (Negative) Urine Ketones (Negative) Urine Blood (Negative) Urine Nitrite (Negative) Urine Bilirubin (Negative) Urine Urobilinogen (Negative) Ur Leukocyte Esterase (Negative) Urine WBC (Auto) (0-5) /hpf Urine RBC (Auto) (0-4) /hpf U Hyaline Cast (Auto) (0-5) /lpf U Epithel Cells (Auto) (0-5) /lpf Urine Bacteria (Auto) (Negative) Influenza Type A Ag (Neg) Influenza Type A (PCR) (Neg) Influenza Type B Ag (Neg) Influenza Type B (PCR) (Neg) 03/05/18 03/05/18 03/05/18 Range/Units 02:11 02:11 05:00 WBC (4.8-10.8) K/uL RBC (4.2-5.4) M/uL Hgb (12.0-16.0) g/dL Hct (37-47) % MCV (80-100) fL MCH (25-34) pg MCHC (32-36) g/dL RDW Std Deviation (36.4-46.3) fL RDW Coeff of Madi (11.5-14.5) % Plt Count (130-400) K/uL MPV (7.4-10.4) fL Immature Gran % (Auto) % Neut % (Auto) % Lymph % (Auto) % [place] % (Auto) % Eos % (Auto) % Baso % (Auto) % Immature Gran # (Auto) (0.00-0.02) K/uL Neut # (Auto) (1.4-6.5) K/uL Lymph # (Auto) (1.2-3.4) K/uL [place] # (Auto) (0.11-0.59) K/uL Eos # (Auto) (0-0.5) K/uL Baso # (Auto) (0-0.2) K/uL ESR (0-21) mm/hr Sodium (136-145) mmol/L Potassium (3.5-5.1) mmol/L Chloride (98-107) mmol/L Carbon Dioxide (21-32) mmol/L Anion Gap (3-11) BUN (7-18) mg/dl Creatinine (0.6-1.2) mg/dl Est Cr Clr Drug Dosing ml/min Est GFR ( Amer) Est GFR (Non-Af Amer) BUN/Creatinine Ratio (10-20) Glucose (70-99) mg/dl Lactate (0.4-2.0) mmol/L Calcium (8.5-10.1) mg/dl Total Bilirubin (0.2-1) mg/dl Direct Bilirubin (0-0.2) mg/dl AST (15-37) U/L ALT (12-78) U/L Alkaline Phosphatase (45-117) U/L Troponin I (0-0.045) ng/ml C-Reactive Protein (0-0.29) mg/dl Total Protein (6.4-8.2) gm/dl Albumin (3.4-5.0) gm/dl Globulin (2.5-4.0) gm/dl Albumin/Globulin Ratio (0.9-2) Procalcitonin < 0.05 (0-0.5) ng/ml Urine Color Yellow Urine Appearance Clear (Clear) Urine pH 6.0 (4.5-7.5) Ur Specific [place] 1.017 (1.000-1.030) Urine Protein Negative (Negative) Urine Glucose (UA) Negative (Negative) Urine Ketones Negative (Negative) Urine Blood Trace H (Negative) Urine Nitrite Negative (Negative) Urine Bilirubin Negative (Negative) Urine Urobilinogen Negative (Negative) Ur Leukocyte Esterase Negative (Negative) Urine WBC (Auto) 1-5 (0-5) /hpf Urine RBC (Auto) 0-4 (0-4) /hpf U Hyaline Cast (Auto) 0 (0-5) /lpf U Epithel Cells (Auto) 5-10 H (0-5) /lpf Urine Bacteria (Auto) Negative (Negative) Influenza Type A Ag Neg for Influ A (Neg) Influenza Type A (PCR) (Neg) Influenza Type B Ag Neg for Influ B (Neg) Influenza Type B (PCR) (Neg) 03/05/18 03/05/18 Range/Units 05:42 08:40 WBC (4.8-10.8) K/uL RBC (4.2-5.4) M/uL Hgb (12.0-16.0) g/dL Hct (37-47) % MCV (80-100) fL MCH (25-34) pg MCHC (32-36) g/dL RDW Std Deviation (36.4-46.3) fL RDW Coeff of Madi (11.5-14.5) % Plt Count (130-400) K/uL MPV (7.4-10.4) fL Immature Gran % (Auto) % Neut % (Auto) % Lymph % (Auto) % [place] % (Auto) % Eos % (Auto) % Baso % (Auto) % Immature Gran # (Auto) (0.00-0.02) K/uL Neut # (Auto) (1.4-6.5) K/uL Lymph # (Auto) (1.2-3.4) K/uL [place] # (Auto) (0.11-0.59) K/uL Eos # (Auto) (0-0.5) K/uL Baso # (Auto) (0-0.2) K/uL ESR (0-21) mm/hr Sodium (136-145) mmol/L Potassium (3.5-5.1) mmol/L Chloride (98-107) mmol/L Carbon Dioxide (21-32) mmol/L Anion Gap (3-11) BUN (7-18) mg/dl Creatinine (0.6-1.2) mg/dl Est Cr Clr Drug Dosing ml/min Est GFR ( Amer) Est GFR (Non-Af Amer) BUN/Creatinine Ratio (10-20) Glucose (70-99) mg/dl Lactate 1.9 (0.4-2.0) mmol/L Calcium (8.5-10.1) mg/dl Total Bilirubin (0.2-1) mg/dl Direct Bilirubin (0-0.2) mg/dl AST (15-37) U/L ALT (12-78) U/L Alkaline Phosphatase (45-117) U/L Troponin I (0-0.045) ng/ml C-Reactive Protein (0-0.29) mg/dl Total Protein (6.4-8.2) gm/dl Albumin (3.4-5.0) gm/dl Globulin (2.5-4.0) gm/dl Albumin/Globulin Ratio (0.9-2) Procalcitonin (0-0.5) ng/ml Urine Color Urine Appearance (Clear) Urine pH (4.5-7.5) Ur Specific [place] (1.000-1.030) Urine Protein (Negative) Urine Glucose (UA) (Negative) Urine Ketones (Negative) Urine Blood (Negative) Urine Nitrite (Negative) Urine Bilirubin (Negative) Urine Urobilinogen (Negative) Ur Leukocyte Esterase (Negative) Urine WBC (Auto) (0-5) /hpf Urine RBC (Auto) (0-4) /hpf U Hyaline Cast (Auto) (0-5) /lpf U Epithel Cells (Auto) (0-5) /lpf Urine Bacteria (Auto) (Negative) Influenza Type A Ag (Neg) Influenza Type A (PCR) Neg for Influ A (Neg) Influenza Type B Ag (Neg) Influenza Type B (PCR) Neg for Influ B (Neg) Imaging Data Attestation: I personally reviewed and interpreted this imaging study as follows : My Impression: X ray results are stated below per my interpretation: Chest: No signs of pulmonary infiltrate or consolidation ECG Data Attestation: I personally reviewed and interpreted this ECG as follows: Indication: SOB/dyspnea Rate (beats per minute): 117 Rhythm: sinus tachycardia Findings: + other (Flattened T waves in the lateral leads) and + ST depression ( Inferior leads) Comparison ECG Date: from (May 27, 2017) Change: the following changes noted (Flattened T wave) Blood Pressure Blood Pressure Findings: Normal blood pressure Blood Pressure Disposition: further management by hospitalist KAY Oneil The patient is a 47 year old female who presents to the ED with shortness of breath. The patient had been diagnosed by her PCP with a pneumonia and started on antibiotics and steroids. However, the patient's shortness of breath seemed to worsen. Upon presentation, the patient had significant wheezing. This seemed to improve with the nebulizer treatment but she remained hypoxic. The patient does admit to continued tobacco abuse despite being diagnosed with borderline emphysema. Because of the hypoxia, the patient was placed on supplemental oxygen and the case was discussed with the [facility] Hospitalist. Impression & Plan Hypoxia Critical Care Time I have personally spent greater than 30 minutes of critical care time in the direct management of this patient. The patient was hypoxic with O2 saturations in the 80s. She required supplemental oxygen. This includes bedside care, interpretation of diagnostic studies, and testing, discussion with consultants, patient, and family members, and other required patient management activities. This 30 minutes is in excess of all separately billable procedures. Critical Care Time: Yes (30) Total Critical Care Time: 30 Discharge Plan Visit Data *Final* Discharge Date/Time: 03/05/18 06:39 Chief Complaint: Fever Stated Complaint: FEVER ED Provider: Yessy Sotomayor Discharge Problem: Hypoxia Patient Disposition: Admitted As Inpatient Discharge Instructions Interventions: ED Discharge Assessment Last Done: 03/05/18 06:39 The scribe's documentation has been prepared under my direction and personally reviewed by me in its entirety. I confirm that the note above accurately reflects all work, treatment, procedures, and medical decision making performed by me.
[2018-03-06] MEDS: SODIUM CHLORIDE 0.9% 1000ML 1,000 ML IV SCH ×2 (03:09→15:15)
[2018-03-06] MEDS: LEVOFLOXACIN/D5W 750 MG/150 ML BAG IV SCH (05:24)
[2018-03-06 05:33] LABS: Basophils # (auto) 0.02 K/uL (0-0.2); Basophils % (auto) 0.1 %; Hematocrit (blood only) 37.9 % (37-47); Hemoglobin 12.6 g/dL (12.0-16.0); Immature Granulocytes % (auto) 0.5 %; Lymphocytes # (auto) 1.73 K/uL (1.2-3.4); Lymphocytes % (auto) 8.6 %; Mean Corpuscular Hgb Conc 33.2 g/dL (32-36); Mean Corpuscular Volume 85.4 fL (80-100); Mean Platelet Volume 9.7 fL (7.4-10.4); Monocytes # (auto) 0.71 K/uL (0.11-0.59); Monocytes % (auto) 3.5 %; Neutrophils # (auto) 17.59 K/uL (1.4-6.5); Neutrophils % (auto) 87.3 %; Platelet Count 320 K/uL (130-400); RDW Coefficient of Variation 14.6 % (11.5-14.5); Red Blood Count 4.44 M/uL (4.2-5.4); White Blood Count 20.15 K/uL (4.8-10.8)
[2018-03-06 06:08] LABS: BUN Creatinine Ratio 16.8 (10-20); Calcium 8.3 mg/dl (8.5-10.1); Creatinine Clr Calc Pharmacy 109.7 ml/min; Potassium 4.3 mmol/L (3.5-5.1)
[2018-03-06] MEDS: ALBUT/IPRATROP 3MG/0.5MG NEB 3 ML VIAL NEB SCH ×4 (07:04→20:21)
[2018-03-06] MEDS: VENLAFAXINE HCL XR 37.5 MG CAPXR PO SCH (08:07)
[2018-03-06] MEDS: FLUTICASONE PROPIONATE NA SPR 16 GM BTL SCH (08:07)
[2018-03-06] MEDS: ASPIRIN 81 MG ECTAB PO SCH (08:07)
[2018-03-06] MEDS: ATORVASTATIN 20 MG TAB PO SCH (11:53)
[2018-03-06] MEDS: methylPREDNISolone 40 MG in SYRINGE 0 ML IV SCH (11:53)
--- NOTE | 2018-03-06 14:59 | Hospitalist Progress Note ---
Date of Service March 06, 2018 Assessment & Plan (1) COPD (chronic obstructive pulmonary disease): Patient is a 47 yr female who presents with dyspnea, fever, cough, hypoxia on room air Acute on chronic COPD exacerbation with Hypoxia Ongoing Tobacco use disorder Possible atypical pneumonia Failed outpatient treatment with doxycycline and prednisone. CXR: No acute cardiopulmonary findings. Influenza screen: Negative Saturating well on room air Continue Dounebs, solu-medrol, levaquin Blood cultures:pedning Oxygen support PRN Hypokalemia Resolved monitor H/O migraines sumatriptan PRN Anxiety and depression Continue Effexor and BuSpar PRN Hyperlipidemia Continue statin GERD: Continue Prilosec. DVT Px: SCDs Code Status Full Code Disposition Expect to discharge home Subjective Patient is seen and examined at bedside Reports chest tightness, dry cough Dyspnea at baseline No other complaints Physical Exam 2 Vital Signs (Past 24 Hours): Last Vital Signs Temp 36.6 C 03/06/18 11:09 Pulse 82 03/06/18 11:09 Resp 20 03/06/18 11:09 BP 110/68 03/06/18 11:09 Pulse Ox 98 03/06/18 11:09 Physical Exam: Physical Exam: Vitals signs as noted above General Appearance:Moderately built and nourished, no apparent distress Head: normocephalic, Atraumatic Eyes: normal inspection, EOMI Neck: supple, Trachea midline Respiratory/Chest: Decreased breath sounds, CTA Cardiovascular: S1, S2, No murmur Abdomen/GI:Soft, Non tender, Bowel sounds present Extremities/Musculoskelatal:normal inspection, no edema Neurologic/Psych:AAOX3, grossly no focal neurological deficits Skin: normal color, warm Results & Data Laboratory Results Short CBC 03/06/18 Range/Units 05:13 WBC 20.15 H (4.8-10.8) K/uL Hgb 12.6 (12.0-16.0) g/dL Hct 37.9 (37-47) % Plt Count 320 (130-400) K/uL BMP 03/06/18 05:13 Sodium 140 Potassium 4.3 D Chloride 108 H Carbon Dioxide 25 BUN 11 Creatinine 0.64 Glucose 135 H Calcium 8.3 L Diagnostic Findings CXR: No acute cardiopulmonary findings. Medications Administered Current Inpatient Medications Acetaminophen (Tylenol) 650 mg PO Q4H PRN PRN Reason: Pain or Fever Stop: 04/04/18 07:03 Last Admin: 03/05/18 11:45 Dose: 650 mg Albuterol (Duoneb) 3 ml NEB QIDR [facility] Stop: 04/04/18 07:59 Last Admin: 03/06/18 11:07 Dose: 3 ml Albuterol (Ventolin Hfa) 2 puffs INH Q4H PRN PRN Reason: Wheezing Stop: 04/04/18 07:03 Albuterol (Duoneb) 3 ml NEB Q2H PRN PRN Reason: Shortness Of Breath Or Wheezin Stop: 04/04/18 07:03 Aspirin (Ecotrin) 81 mg PO DAILY [facility] Stop: 04/04/18 08:59 Last Admin: 03/06/18 08:07 Dose: 81 mg Atorvastatin Calcium (Lipitor) 20 mg PO DAILY [facility] Stop: 04/04/18 08:59 Last Admin: 03/06/18 11:53 Dose: 20 mg Buspirone HCl (Buspar) 5 mg PO DAILY PRN PRN Reason: panic attacks Stop: 04/04/18 07:03 Cyclobenzaprine HCl (Flexeril) 5 mg PO HS PRN PRN Reason: Muscle Spasms Stop: 04/04/18 07:03 Fluticasone Propionate (Flonase) 2 sprays NA DAILY [facility] Stop: 04/04/18 09:59 Last Admin: 03/06/18 08:07 Dose: 2 sprays Levofloxacin/Dextrose (Levaquin/D5w) 750 mg in 150 mls @ 100 mls/hr IV Q24H [facility] Stop: 03/12/18 06:21 Last Infusion: 03/06/18 07:06 Dose: Infused Sodium Chloride (Nss 1000ml) 1,000 mls @ 50 mls/hr IV .Q20H [facility] Stop: 04/04/18 07:29 Last Admin: 03/06/18 03:09 Dose: 100 mls/hr Methylprednisolone 40 mg/ (Syringe) 0.64 mls @ 1.5 mls/min IV DAILY [facility] Stop: 04/06/18 08:59 Miscellaneous Information (Consult) 1 ea N/A UD [facility] Stop: 04/04/18 08:52 Nitroglycerin (Nitrostat) 0.4 mg SL UD PRN PRN Reason: Chest Pain Stop: 04/04/18 07:03 Ondansetron HCl (Zofran) 4 mg IV Q6H PRN PRN Reason: Nausea Stop: 04/04/18 07:03 Pantoprazole Sodium (Protonix) 40 mg PO DAILY PRN PRN Reason: Heartburn Stop: 04/04/18 07:03 Venlafaxine HCl (Effexor Extended Release) 37.5 mg PO DAILY [facility] Stop: 04/04/18 08:59 Last Admin: 03/06/18 08:07 Dose: 37.5 mg
[2018-03-07] MEDS: LEVOFLOXACIN/D5W 750 MG/150 ML BAG IV SCH (05:53)
[2018-03-07 05:57] LABS: Basophils # (auto) 0.02 K/uL (0-0.2); Basophils % (auto) 0.1 %; Eosinophils # (auto) 0.02 K/uL (0-0.5); Eosinophils % (auto) 0.1 %; Hemoglobin 12.7 g/dL (12.0-16.0); Immature Granulocytes # (auto) 0.15 K/uL (0.00-0.02); Immature Granulocytes % (auto) 0.8 %; Lymphocytes # (auto) 3.92 K/uL (1.2-3.4); Lymphocytes % (auto) 20.2 %; Mean Corpuscular Hgb Conc 32.6 g/dL (32-36); Mean Corpuscular Volume 86.1 fL (80-100); Mean Platelet Volume 9.6 fL (7.4-10.4); Monocytes # (auto) 1.29 K/uL (0.11-0.59); Monocytes % (auto) 6.6 %; Neutrophils # (auto) 14.05 K/uL (1.4-6.5); Neutrophils % (auto) 72.2 %; Platelet Count 358 K/uL (130-400); RDW Coefficient of Variation 15.1 % (11.5-14.5); RDW Standard Deviation 47.8 fL (36.4-46.3); Red Blood Count 4.53 M/uL (4.2-5.4); White Blood Count 19.45 K/uL (4.8-10.8)
[2018-03-07 06:32] LABS: BUN Creatinine Ratio 18.8 (10-20); Calcium 8.7 mg/dl (8.5-10.1); Creatinine Clr Calc Pharmacy 101.9 ml/min; Est GFR (Non-African American) 104.4; Potassium 4.2 mmol/L (3.5-5.1)
[2018-03-07] MEDS: ALBUT/IPRATROP 3MG/0.5MG NEB 3 ML VIAL NEB SCH ×3 (07:04→15:19)
[2018-03-07] MEDS: FLUTICASONE PROPIONATE NA SPR 16 GM BTL SCH (07:58)
[2018-03-07] MEDS: ATORVASTATIN 20 MG TAB PO SCH (08:58)
[2018-03-07] MEDS: VENLAFAXINE HCL XR 37.5 MG CAPXR PO SCH (08:58)
[2018-03-07] MEDS: ASPIRIN 81 MG ECTAB PO SCH (08:58)
[2018-03-07] MEDS ORDERED: methylPREDNISolone 40 MG in SYRINGE 0 ML IV SCH (09:00)
--- NOTE | 2018-03-07 14:35 | Hospitalist Progress Note ---
Date of Service March 07, 2018 Assessment & Plan (1) COPD (chronic obstructive pulmonary disease): Patient is a 47 yr female who presents with dyspnea, fever, cough, hypoxia on room air Acute on chronic COPD exacerbation with Hypoxia Ongoing Tobacco use disorder Possible atypical pneumonia Failed outpatient treatment with doxycycline and prednisone. CXR: No acute cardiopulmonary findings. Influenza screen: Negative Continue Dounebs, solu-medrol, levaquin Blood cultures:No growth to date Saturating well on room air Plan to transition to prednisone upon discharge Needs PFTs and follow up with Pulmonology as outpatient Refuses need for Nicotine patch. Willing to quit Tobacco use Hypokalemia Resolved monitor H/O migraines sumatriptan PRN Anxiety and depression Continue Effexor and BuSpar PRN Hyperlipidemia Continue statin GERD: Continue Prilosec. DVT Px: SCDs Code Status Full Code Disposition Plan to discharge home today Subjective Patient is seen and examined at bedside Feels much better today Chest tightness resolved cough is improved Dyspnea at baseline No new complaints Patient eager to get discharged today Physical Exam 2 Vital Signs (Past 24 Hours): Last Vital Signs Temp 36.7 C 03/07/18 07:45 Pulse 84 03/07/18 11:14 Resp 16 03/07/18 11:14 BP 115/78 03/07/18 07:45 Pulse Ox 95 03/07/18 11:14 Physical Exam: Physical Exam: Vitals signs as noted above General Appearance:Moderately built and nourished, no apparent distress Head: normocephalic, Atraumatic Eyes: normal inspection, EOMI Neck: supple, Trachea midline Respiratory/Chest: Decreased breath sounds, scattered wheezes/rhonchi Cardiovascular: S1, S2, No murmur Abdomen/GI:Soft, Non tender, Bowel sounds present Extremities/Musculoskelatal:normal inspection, no edema Neurologic/Psych:AAOX3, grossly no focal neurological deficits Skin: normal color, warm Results & Data Laboratory Results Short CBC 03/07/18 Range/Units 05:24 WBC 19.45 H (4.8-10.8) K/uL Hgb 12.7 (12.0-16.0) g/dL Hct 39.0 (37-47) % Plt Count 358 (130-400) K/uL BMP 03/07/18 05:24 Sodium 137 Potassium 4.2 Chloride 103 Carbon Dioxide 27 BUN 13 Creatinine 0.69 Glucose 98 Calcium 8.7
--- NOTE | 2018-03-07 14:50 | Discharge Summary ---
Date of Service March 07, 2018 Admission HPI Per Admitting Provider CHIEF COMPLAINT: Shortness of breath and fever. HISTORY OF PRESENT ILLNESS: This is a 47-year-old female with past medical history significant for migraines, hyperlipidemia, anxiety, depression, tobacco abuse, who presents with ongoing cough and shortness of breath for about a week since Jeff. She is having cough with on and off yellowish phlegm and shortness of breath, and she saw her family doctor on 03/01/2018 as she was not feeling well and had fever and she was prescribed prednisone and also doxycycline, but she is not getting better. which prompted her to come to the ER. In the ER, she was saturating 86% to 89% on room air, on 2 L she is saturating okay at 94%. She had temperature spike, somewhat tachycardic. Received steroid and breathing treatment in the ER. Currently, she says she is feeling better. She has some mild headache, denies any dizziness, no blurred visions, no earache. She has some runny nose and sore throat, no difficulty swallowing. . Denies any chest pain, not feeling nausea or abdominal pain. Normal bowel and bladder movements. No hematuria, no hematochezia, no black stools. Admission Exam Per Admitting Provider PHYSICAL EXAMINATION: GENERAL: Patient is alert, oriented, not in acute distress. VITAL SIGNS: Temperature 37.8, pulse 110, respiratory rate 18, blood pressure 110/60, oxygen saturation 98%-96% on room air, currently 94% on 2 L. HEENT: No pallor, no icterus. Pupils equal, round, and reactive to light. Oral mucosa moist. No pharyngitis seen. NECK: No JVD, no neck masses, no carotid bruits. CARDIOVASCULAR SYSTEM: S1 and S2 heard, regular rate and rhythm, no murmurs. RESPIRATORY SYSTEM: Normal AP diameter. No accessory muscle use. Diminished bilateral breath sounds. No wheezing, no crackles. GASTROINTESTINAL: Abdomen is soft, bowel sounds present, nontender, no distention. CENTRAL NERVOUS SYSTEM: Cranial nerves II through XII grossly intact, nonfocal. EXTREMITIES: No edema, no erythema. Principal Diagnosis Discharge Information Discharge Diagnosis COPD Exacerbation Possible atypical pneumonia Discharge Goals Decrease discomfort,Improve disease control, Improve function Discharge Activity Limitations Resume your previous activity Discharge Data Allergies Allergy/AdvReac Type Severity Reaction Status Date / Time strawberry Allergy Unknown ANAPHYLAXIS Verified 03/05/18 06:34 Consultations 03/05/18 05:41 ED Decision to Admit Stat Procedures Performed CXR: No acute cardiopulmonary findings. Hospital Course (1) COPD (chronic obstructive pulmonary disease): Patient is a 47 yr female who presents with dyspnea, fever, cough, hypoxia on room air Acute on chronic COPD exacerbation with Hypoxia Ongoing Tobacco use disorder Possible atypical pneumonia Failed outpatient treatment with doxycycline and prednisone. CXR: No acute cardiopulmonary findings. Influenza screen: Negative Continue Dounebs, solu-medrol, levaquin Blood cultures:No growth to date Saturating well on room air Plan to transition to prednisone upon discharge Needs PFTs and follow up with Pulmonology as outpatient Refuses need for Nicotine patch. Willing to quit Tobacco use Hypokalemia Resolved monitor H/O migraines sumatriptan PRN Anxiety and depression Continue Effexor and BuSpar PRN Hyperlipidemia Continue statin GERD: Continue Prilosec. DVT Px: SCDs Code Status Full Code Disposition Plan to discharge home today Total Time Total Time Spent Total Time Spent (In Minutes): 38 minutes Total Time Includes: Examination of the Patient, Discharge Planning, Medication Reconciliation and Other Discharge Plan Discharge Items Patient Disposition: Home - Self-Care Reason For Visit: SOB, FEVER Discharge Diagnosis: COPD Exacerbation Possible atypical pneumonia Discharge Goals: Decrease discomfort, Improve disease control and Improve function Activity: Resume your previous activity Exercise/Sports: Gradually increase as tolerated Non-emergency contact: Primary Care Provider and Office Analyst Call non-emergency contact if: you have any medication questions, your symptoms worsen, your pain is not controlled, your pain is worsening, your pain is unusual for you and you have a fever Diet: Heart Healthy Addtl Provider Instructions: Follow up with your PCP on 03/15/18 at 10:55AM Complete the antibiotic and prednsione course as prescribed Get Lung Function tests done as outpatient as advised Consider following with a Pulmnologist as advised Quit smoking Tobacco as advised Seek immediate medical attention if your symptoms reoccur or worsen Prednisone Course: Start taking Prednisone 30mg daily for 3 days, then 20mg daily for 3 days, then 10mg daily for 3 days and STOP Prescriptions: New levofloxacin 750 mg tablet 750 mg PO DAILY 4 Days Qty: 4 RF: 0 prednisone 10 mg tablet 10 mg PO UD Qty: 18 RF: 0 fluticasone-vilanterol [Breo Ellipta] 100-25 mcg/dose blister with device 1 inha INH DAILY Qty: 1 RF: 0 Continue ibuprofen 600 mg Tablet 600 mg PO TID PRN (Reason: Pain) RF: 0 atorvastatin 20 mg tablet 20 mg PO DAILY RF: 0 buspirone 10 mg tablet 5 - 10 mg PO DAILY PRN (Reason: Anxiety) RF: 0 venlafaxine 37.5 mg capsule,extended release 24hr 37.5 mg PO DAILY RF: 0 albuterol sulfate 90 mcg/actuation HFA aerosol inhaler 2 puff Inhalation Q4 PRN (Reason: Shortness Of Breath Or Wheezing) RF: 0 sumatriptan succinate 100 mg tablet 100 mg PO UD PRN (Reason: Migraine Headache) RF: 0 aspirin 81 mg Tablet,Chewable 81 mg PO DAILY RF: 0 fluticasone [Flonase Allergy Relief] 50 mcg/actuation [place],Suspension 2 spray INTRANASAL DAILY RF: 0 cyclobenzaprine 5 mg Tablet 5 mg PO HS PRN (Reason: Muscle Pain) RF: 0 Visit Report Forms: [facility] Stand-Alone Forms: [facility] Discharge Orders: Discharge Order (Routine); Ordered 03/07/18 Ordered By: Oscar Mercedes Admission Data Admit Date/Time: 03/05/18 05:59 Attending Provider: Oscar Mercedes Admit Provider: Guy Coburn Primary Care Provider: Cora Salas Other Providers: Jasbir Powell ; Guy Coburn Service: Medical Other Interventions: Discharge Summary Assessment (RN) Last Done: 03/07/18 15:11 DC Date/Time DO NOT enter until pt leaves facility: 03/07/18 17:11
[2018-03-07] MEDS ORDERED: FLUTICASONE/SALMETEROL 100/50 (ADVAIR) 14 PUFF/1 INHALER INH SCH (21:00)
== END 2018-03-07 17:11 | disposition home or self-care (01) | DRG 190 ==
LOC: ED 01:51 → SUATTDRO 05:59 → 2S 05:59 → 4E 03-06 16:36

== ENCOUNTER 2019-05-08 08:16 | Inpatient (IN) ==
[2019-05-08] MEDS ORDERED: OPTIRAY 320 125ml IV PRN (08:28)
--- NOTE | 2019-05-08 08:28 | CT Scan Report ---
CT SCAN OF THE BRAIN WITHOUT IV CONTRAST CLINICAL HISTORY: Strokelike symptoms. COMPARISON STUDY: CT of the brain dated 08/24/2016. TECHNIQUE: Unenhanced axial CT scan of the brain is performed from the vertex to the skull base. A d ose lowering technique was utilized adhering to the principles of ALARA. CT DOSE: 537.48 mGy.cm FINDINGS: Brain parenchyma: The brain parenchyma is normal in appearance. There is no hemorrhage, mass effect, or evidence of acute territorial ischemia by CT criteria. Jane-white matter differentiation is preser cesar. No extra-axial fluid collection is seen. Ventricles, sulci, cisterns: Normal in configuration. Intracranial vasculature: The visualized intracranial vasculature at the skull base is normal in appe arance. Calvarium: Unremarkable. Sinuses and mastoids: Trace fluid is noted in the right sphenoid sinus. The visualized paranasal sinu ses are otherwise clear. The mastoid air cells are well pneumatized. Orbits: The bony orbits are grossly intact. IMPRESSION: No acute intracranial abnormality. ACT 112: Negative or not required by law. Electronically signed by: Trip Varghese M.D. 05/08/2019 8:26 AM
[2019-05-08 08:34] LABS: Basophils # (auto) 0.02 K/uL (0-0.2); Basophils % (auto) 0.2 %; Eosinophils % (auto) 3.5 %; Hematocrit (blood only) 38.7 % (37-47); Hemoglobin 13.1 g/dL (12.0-16.0); Immature Granulocytes # (auto) 0.01 K/uL (0.00-0.02); Immature Granulocytes % (auto) 0.1 %; Lymphocytes # (auto) 3.11 K/uL (1.2-3.4); Lymphocytes % (auto) 36.5 %; Mean Corpuscular Hemoglobin 28.4 pg (25-34); Mean Corpuscular Hgb Conc 33.9 g/dL (32-36); Mean Corpuscular Volume 83.9 fL (80-100); Mean Platelet Volume 10.1 fL (7.4-10.4); Monocytes # (auto) 0.44 K/uL (0.11-0.59); Monocytes % (auto) 5.2 %; Neutrophils # (auto) 4.64 K/uL (1.4-6.5); Neutrophils % (auto) 54.5 %; Platelet Count 315 K/uL (130-400); RDW Standard Deviation 42.7 fL (36.4-46.3); Red Blood Count 4.61 M/uL (4.2-5.4); White Blood Count 8.52 K/uL (4.8-10.8)
[2019-05-08] MEDS ORDERED: TPA for Stroke IV STA (08:35)
[2019-05-08] MEDS ORDERED: Alteplase Bolus 7.4 MG in SYRINGE 0 ML IV ONE (08:45)
[2019-05-08] MEDS ORDERED: ALTEPLASE IV ONE (08:46)
[2019-05-08] MEDS ORDERED: RECOMBINANT IV ONE (08:46)
[2019-05-08] MEDS ORDERED: PRIMARY PLUMSET, PE LINED TUBING, 113 IN, NON-DEHP (2260-0500) IV ONE (08:46)
--- NOTE | 2019-05-08 08:47 | CT Scan Report ---
CT ANGIOGRAM OF THE BRAIN; CT ANGIOGRAM OF THE NECK CLINICAL HISTORY: Strokelike symptoms. COMPARISON STUDY: Unenhanced CT of the brain performed the same day 05/08/2019. CT angiogram of the br ain dated 08/23/2016. Carotid artery ultrasound dated 08/23/2016. TECHNIQUE: Following the IV administration of 120 of Optiray 320, CT angiogram of the head and neck w as performed from the aortic arch to the vertex. Images are reviewed in the axial, sagittal, and malachi nal planes. 3-D MIPS images are created and assessed. IV contrast was administered without complicati on. All measurements were calculated based on NASCET criteria. A dose lowering technique was utilize d adhering to the principles of ALARA. CT DOSE: 635.16 mGy.cm FINDINGS: Brain parenchyma: The brain parenchyma is normal in appearance. There is no hemorrhage, mass effect, or evidence of acute territorial ischemia by CT criteria. There is no evidence of enhancing mass lesi on on the angiogram phase images. The ventricles, sulci, and cisterns are normal in configuration. Gr ay-white matter differentiation is preserved. No extra-axial fluid collection is seen. Thoracic aorta: Visualized portions of the thoracic aorta are normal in caliber. The aortic arch demo nstrates standard 3-vessel anatomy. Right carotid arterial system: The right common carotid artery is widely patent, as are the right int ernal and external carotid arteries. Left carotid arterial system: The left common carotid artery is widely patent, as are the left internal control analyst al and external carotid arteries. Vertebral arteries: The vertebral arteries are widely patent bilaterally and codominant. Subclavian arteries: Widely patent bilaterally. Intracranial vasculature: There is origin of the right posterior cerebral artery. The internal carotid arteries are patent at the skull base, as are the anterior and middle cerebral arteries bilat erally. The vertebrobasilar system and posterior cerebral arteries are widely patent. The vertebral a rteries are codominant. There is no aneurysm, high-grade stenosis, or focal vessel cut off seen throu ghout the intracranial circulation. Jugular veins: Patent bilaterally. Dural sinuses: Patent. Lung apices: Partially visualized upper lobe lung parenchyma appears clear. Soft tissues: The visualized pharyngeal soft tissues are normal in appearance noting angiographic pha se technique. The oropharyngeal airway appears widely patent. The salivary and thyroid glands are nor mal in appearance. No cervical lymphadenopathy is seen. Skeletal structures: The calvarium appears intact. The cervical spine is maintained noting mild multi level spondylosis. Sinuses and mastoids: There is trace fluid within the right sphenoid sinus. The remaining paranasal s inuses are clear. The mastoid air cells are well pneumatized. IMPRESSION: 1. There is no hemorrhage, mass effect, or evidence of acute territorial ischemia by CT criteria noti ng angiographic phase technique. 2. Unremarkable CT angiogram of the brain. 3. Unremarkable CT angiogram of the neck. ACT 112: Negative or not required by law. Electronically signed by: Trip Varghese M.D. 05/08/2019 8:46 AM
[2019-05-08 08:49] LABS: Albumin Level 3.5 gm/dl (3.4-5.0); Aspartate Aminotransferase 22 U/L (15-37); BUN Creatinine Ratio 16.3 (10-20); Blood Urea Nitrogen 12 mg/dl (7-18); Carbon Dioxide 24 mmol/L (21-32); Chloride 108 mmol/L (98-107); Creatinine Clr Calc Pharmacy 90.1 ml/min; Est GFR (Non-African American) 94.9; Glucose 107 mg/dl (70-99); Magnesium 1.8 mg/dl (1.8-2.4); Potassium 3.7 mmol/L (3.5-5.1); Sodium 139 mmol/L (136-145)
[2019-05-08 09:05] LABS: Alanine Aminotransferase 15 U/L (12-78); Albumin Globulin Ratio 0.9 (0.9-2); Alkaline Phosphatase 76 U/L (45-117); Bilirubin,Total 0.3 mg/dl (0.2-1); Globulin 3.9 gm/dl (2.5-4.0); Total Protein 7.4 gm/dl (6.4-8.2); Troponin I < 0.015 ng/ml (0-0.045)
[2019-05-08 09:06] LABS: Partial Thromboplastin Ratio 0.9; Partial Thromboplastin Time 24.1 Seconds (21.0-31.0); Prothrombin Time 10.5 Seconds (9.0-12.0)
--- NOTE | 2019-05-08 09:15 | XRay Report ---
XR chest 1V portable CLINICAL HISTORY: Stroke. COMPARISON STUDY: Chest radiograph March 05, 2018. FINDINGS: Lung volumes are normal. Lungs are clear. There is no pneumothorax or pleural effusion. Car diac size is normal. Mediastinal contours are normal. There is no evidence for pulmonary edema. IMPRESSION: No acute cardiopulmonary findings. ACT 112: Negative or not required by law. Electronically signed by: Brian Morrison M.D. 05/08/2019 9:14 AM
--- NOTE | 2019-05-08 09:45 | History & Physical Report ---
Date of Service May 08, 2019 Assessment & Plan (1) Stroke-like symptoms: Presented with stroke-like symptoms (left facial palsy, LUE and LLE weakness). Onset of symptoms 0715. CT head and CTA of head and neck negative. Telestroke consultation obtained with [facility]. No contraindication for thrombolytic therapy. TPA initiated in ED. Symptoms improving. Possible ischemic stroke. Consider migraine or other etiologies of symptoms. Further evaluation and management per stroke protocol. (2) HLD (hyperlipidemia): Check lipid profile. (3) COPD (chronic obstructive pulmonary disease): Pulmonary status stable. (4) Tobacco abuse: Smoking cessation counseling. (5) DVT prophylaxis: No anticoagulants because of TPA. SCD's. (6) Discharge planning issues: Anticipated discharge to home. Family Medicine follow-up with Dr. Salas. History of Present Illness Chief Complaint: left-sided weakness Primary Care Provider: Cora Salas DO 48-year-old female followed by Dr. Cora Salas for Family Medicine. History of migraines, possible TIA in past, dyslipidemia, and other problems as noted. This morning at 0715 she developed left facial palsy and mild to moderate weakness of left upper extremity and left lower extremity. No headache. She came to the ED for evaluation. Stroke alert was called. Head CT negative. CTA of head and neck negative. Tele-stroke consultation with [facility] obtained. Thrombolytic therapy recommended and TPA protocol initiated around 0845. Symptoms were improving by the time of my assessment around 0905. Allergies Allergy/AdvReac Type Severity Reaction Status Date / Time strawberry Allergy Unknown ANAPHYLAXIS Verified 03/05/18 06:34 Home Medications Home Medications Medication Instructions Recorded Confirmed Type albuterol sulfate 2 puff INHALATION Q4 PRN 03/05/18 05/08/19 History aspirin 81 mg PO DAILY 03/05/18 05/08/19 History sumatriptan succinate 100 mg PO UD PRN 03/05/18 05/08/19 History venlafaxine 37.5 mg PO DAILY 03/05/18 05/08/19 History fluticasone furoate-vilanterol 1 inha INH DAILY #1 ea 03/07/18 05/08/19 Rx [Breo Ellipta] Past Med/Surg History Medical History Asthma (Chronic) Depression (Chronic) HLD (hyperlipidemia) (Chronic) Migraine (Chronic) Sinus infection (Chronic) TIA (transient ischemic attack) (Resolved) Surgical History H/O tubal ligation (Resolved) Family History (Updated 05/09/19 @ 04:03 by Jasbir Powell MD) Father Hypertension Stroke Sister Breast cancer Grandmother (Maternal) Pancreatic cancer Social History Preferred Language: Greenlandic Communication Ability: Effective Communication Ability Comment: left handed, unable to write/weakness Perinatal Technician Required: No Beliefs That Will Affect Care: None Current Living Situation: Spouse Other Information That Helps Us Care for You: No Feels Safe at Home: Yes Safety Concerns: Feels Safe At This Time Smoking Status: Current every day smoker Tobacco Type: cigarettes ; Cigarettes Per Day: 20 ; Do You Dip or Chew Tobacco: No ; Second Hand Exposure: No ; Tobacco Cessation Education Requested by Patient: No Hx Alcohol Use: No Hx Substance Use: No Review of Systems Constitutional: + weight loss; no fever Eyes: no diplopia and no worsening vision Ear, Nose, Mouth, Throat: no nasal congestion, no sinus pain/pressure and no sore throat Respiratory: no cough and no dyspnea Cardiovascular: no chest pain, no palpitations and no edema Gastrointestinal: no nausea, no vomiting, no constipation, no diarrhea/loose stools, no blood in stools and no melena Genitourinary: no dysuria and no hematuria Musculoskeletal: no joint pain and no myalgia Integumentary: no rash and no new lesions Neurologic: as per Subjective / HPI Endocrine: no polydipsia and no polyuria Hematologic / Lymphatic: no easy bleeding, no easy bruising and no lymphadenopathy Physical Exam Constitutional: WD/WN, vitals as above no acute distress Eyes: PERRL, conjunctivae normal, anicteric sclerae ENMT: external ear and nose normal, oropharynx normal Neck: trachea midline, no thyromegaly Respiratory: normal respiratory effort, lungs clear to auscultation no respiratory distress Auscultation: lungs clear to auscultation bilaterally Cardiovascular: Rate/Rhythm: regular rate and regular rhythm Heart Sounds: no gallop, no murmur and no cardiac rub Vessels: no JVD Extremities: no calf tenderness and no edema Gastrointestinal (Abdomen): normal bowel sounds, soft, nontender, no hepatosplenomegaly Musculoskeletal: Head/Neck/Chest: neck supple Extremities: strength 5/5 throughout; no cyanosis and no clubbing Skin: no rashes, warm and dry Neurologic: PERRL, EOMI ? mild left facial palsy tongue deviated to left no dysarthria or aphasia LUE strength 4.5/5 LLE strength 4.5/5 patellar DTR's 2/2 bilat plantar reflexes downgoing mild difficulty with left finger to nose Psychiatric: Orientation: alert and oriented x 3 Affect: euthymic affect Lymphatic: no cervical lymphadenopathy Results & Data Vital Signs (Past 12 Hours) Vital Signs Temp Pulse Pulse Resp BP BP Pulse Ox 05/08/19 09:30 67 22 122/81 95 05/08/19 09:15 71 15 128/100 100 05/08/19 09:00 67 17 128/88 95 05/08/19 08:35 36.8 C 67 20 147/91 H 100 Laboratory Results Laboratory Results - last 24 hr 05/08/19 05/08/19 05/08/19 08:10 08:10 08:39 WBC 8.52 RBC 4.61 Hgb 13.1 Hct 38.7 MCV 83.9 MCH 28.4 MCHC 33.9 RDW Std Deviation 42.7 RDW Coeff of Madi 14.0 Plt Count 315 MPV 10.1 Immature Gran % (Auto) 0.1 Neut % (Auto) 54.5 Lymph % (Auto) 36.5 Roberts % (Auto) 5.2 Eos % (Auto) 3.5 Baso % (Auto) 0.2 Immature Gran # (Auto) 0.01 Neut # (Auto) 4.64 Lymph # (Auto) 3.11 Roberts # (Auto) 0.44 Eos # (Auto) 0.30 Baso # (Auto) 0.02 PT INR APTT PTT Ratio Sodium 139 Potassium 3.7 Chloride 108 H Carbon Dioxide 24 Anion Gap 6.0 BUN 12 Creatinine 0.75 Est Cr Clr Drug Dosing 90.1 Est GFR ( Amer) 110.0 Est GFR (Non-Af Amer) 94.9 BUN/Creatinine Ratio 16.3 Glucose 107 H POC Glucose Calcium 9.0 Magnesium 1.8 Total Bilirubin 0.3 AST 22 ALT 15 Alkaline Phosphatase 76 POC Troponin I < 0.03 Troponin I < 0.015 Total Protein 7.4 Albumin 3.5 Globulin 3.9 Albumin/Globulin Ratio 0.9 Specimen Hemolysis Nasal Screen MRSA (PCR) Blood Type Antibody Screen 05/08/19 05/08/19 05/08/19 08:42 08:42 10:45 WBC RBC Hgb Hct MCV MCH MCHC RDW Std Deviation RDW Coeff of Madi Plt Count MPV Immature Gran % (Auto) Neut % (Auto) Lymph % (Auto) Roberts % (Auto) Eos % (Auto) Baso % (Auto) Immature Gran # (Auto) Neut # (Auto) Lymph # (Auto) Roberts # (Auto) Eos # (Auto) Baso # (Auto) PT 10.5 INR 1.0 APTT 24.1 PTT Ratio 0.9 Sodium Potassium Chloride Carbon Dioxide Anion Gap BUN Creatinine Est Cr Clr Drug Dosing Est GFR ( Amer) Est GFR (Non-Af Amer) BUN/Creatinine Ratio Glucose POC Glucose Calcium Magnesium Total Bilirubin AST ALT Alkaline Phosphatase POC Troponin I Troponin I Total Protein Albumin Globulin Albumin/Globulin Ratio Specimen Hemolysis Nasal Screen MRSA (PCR) Negative Blood Type A Negative Antibody Screen NEGATIVE 05/08/19 11:56 WBC RBC Hgb Hct MCV MCH MCHC RDW Std Deviation RDW Coeff of Madi Plt Count MPV Immature Gran % (Auto) Neut % (Auto) Lymph % (Auto) Roberts % (Auto) Eos % (Auto) Baso % (Auto) Immature Gran # (Auto) Neut # (Auto) Lymph # (Auto) Roberts # (Auto) Eos # (Auto) Baso # (Auto) PT INR APTT PTT Ratio Sodium Potassium Chloride Carbon Dioxide Anion Gap BUN Creatinine Est Cr Clr Drug Dosing Est GFR ( Amer) Est GFR (Non-Af Amer) BUN/Creatinine Ratio Glucose POC Glucose 81 Calcium Magnesium Total Bilirubin AST ALT Alkaline Phosphatase POC Troponin I Troponin I Total Protein Albumin Globulin Albumin/Globulin Ratio Specimen Hemolysis Nasal Screen MRSA (PCR) Blood Type Antibody Screen Diagnostic Findings CT head negative. CTA of head and neck negative. Chest x-ray negative. ECG Additional Comments: EKG showed normal sinus rhythm at 64/minute, no acute changes. Code Status & VTE Plan VTE Prophylaxis Plan VTE Prophylaxis will be ordered: Yes
[2019-05-08] MEDS ORDERED: ICU PROTOCOL FOR HYPERGLYCEMIA PRN (10:53)
[2019-05-08] MEDS ORDERED: PHARMACIST DISCHARGE MED REC CONSULT PRN (10:59)
--- NOTE | 2019-05-08 11:12 | Critical Care Consultation ---
Date of Consultation May 08, 2019 Assessment & Plan (1) Stroke-like symptoms: Reason Critically Ill: 48 yo F with stroke like symptoms including slurred speech, L facial droop, L arm and leg weakness who was given TPA in the ED. NEURO: [facility] ICU: Negative Possible CVA vs. Complex Migraine -NIH on admission was 0 -Symptoms began at 07:15 and patient received Alteplase at 08:35 of the same morning -Currently patient noting significant improvement in symptoms with only slight weakness on LUE and LLE. Also noting L tongue deviation. -CT Head and CTA neck were negative -TTE w/ bubble study pending. -MRI brain w/o pending -Patient of migraines, with a prior admission 2 years ago with similar symptoms being migraines. -Notes last migraine was 3-4 days ago requiring Imitrex use. -Currently denying headache, but states she did not have a headache 2 years ago either. -Continue neuro checks qhs -Neurology consulted Migraines -Hold Sumatriptan Depression -Patient had self weaned from Effexor 1 month ago. -Currently unmedicated CARDIAC: Stroke R/O -TTE with bubble study pending -Allow for permissive HTN Systolic <180, Diastolic <105 Hx Dyslipidemia -Not on a statin -Fasting lipids pending RESPIRATORY: COPD -Patient notes 1/2PPD x 30 years, though likely more as she only recently switched to 1/2 PPD in the past month -Continue home Breo -Continue Albuterol PRN GI: -Will treat nausea PRN -Swallow evaluation prior to allowing PO RENAL/LYTES: -Monitor lytes, currently stable : -No concerns currently, will monitor ENDO: -No history of DM or thyroid disorder HEME: -Monitor H&H ID: -No concerns LINES/IV ACCESS: 2 18g periph in R arm CODE STATUS: Full DVT PROPHYLAXIS: contraindicated Thank you for allowing us to participate in the care of this patient. Please refer to my attending physician's documentation for any further recommendations. (2) CVA (cerebrovascular accident): (3) Tobacco abuse: (4) COPD (chronic obstructive pulmonary disease): (5) Depression: (6) Migraine: Supervising Physician Co-Signing Physician Notes Dr Go Bonner was the resident physician with whom patient was seen bedside. Patient came in with symptoms of facial drop and weakness. CTA head and neck was negative. Patient was given TPA. At the time of examination patient feeling better. No ANGEL, No blurry vision. No facial droop. Maintain BP <180/105. C/w Neurochecks. Swallow eval before starting PO feeds. History of Present Illness Reason for Consultation: Stroke R/O, TPA administration Requesting Physician: Dr. Jasbir Powell Attending Physician: Jasbir Powell MD History of Present Illness Patient is a 48 year old female with PMHx Migraines w/ possible aura, complex migraines, COPD, Depression, possible prior TIA, and tobacco use that noted symptoms of L facial drooping and L arm and L leg weakness at 7:15AM this morning. She emergently contacted EMS who brought her to [facility]. She was rapidly assessed by staff and Neurology TeleMed. Her CT Head and CTA neck were unremarkable. She was determined to have no risk factors for administration of TPA and was given TPA at 8:35AM in the ED. Upon arrival to the ICU patient is awake and oriented. She recants this morning, noting that she was sitting in her car smoking a cigarette when she noticed her symptoms of L facial droop, blurred vision, nausea, L arm and L leg "heaviness." She notes that currently she is almost feeling "back to myself" and that she still only has some heaviness in her L arm and leg. She notes that her nausea has improved. She recounts a similar incident 2 years ago that also affected her L side in the same way which she states was determined to be a complex migraine. She notes that she gets 2-3 migraines a month, typically starting as a tingling/discomfort in the back of her neck which then moves to the front and center of her forehead. She takes Imitrex as an abortive, but has no other medications she takes on a daily basis for prevention. She also notes that roughly 1 month ago she stopped taking her effexor for depression on her own. Allergies Allergy/AdvReac Type Severity Reaction Status Date / Time strawberry Allergy Unknown ANAPHYLAXIS Verified 03/05/18 06:34 Home Medications Home Medications Medication Instructions Recorded Confirmed Type albuterol sulfate 2 puff INHALATION Q4 PRN 03/05/18 05/08/19 History aspirin 81 mg PO DAILY 03/05/18 05/08/19 History sumatriptan succinate 100 mg PO UD PRN 03/05/18 05/08/19 History venlafaxine 37.5 mg PO DAILY 03/05/18 05/08/19 History fluticasone furoate-vilanterol 1 inha INH DAILY #1 ea 03/07/18 05/08/19 Rx [Breo Ellipta] Patient History Medical History (Updated 05/09/19 @ 09:26 by Anshul Loo MD) Asthma (Chronic) Depression (Chronic) HLD (hyperlipidemia) (Chronic) Migraine (Chronic) Sinus infection (Chronic) Status post admission to intensive care unit TIA (transient ischemic attack) (Resolved) Surgical History H/O tubal ligation (Resolved) Family History (Updated 05/09/19 @ 04:03 by Jasbir Powell MD) Father Hypertension Stroke Sister Breast cancer Grandmother (Maternal) Pancreatic cancer Social History Preferred Language: Bulgarian Communication Ability: Effective Communication Ability Comment: left handed, unable to write/weakness 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 Beliefs That Will Affect Care: None Current Living Situation: Spouse Other Information That Helps Us Care for You: No Feels Safe at Home: Yes Safety Concerns: Feels Safe At This Time Smoking Status: Current every day smoker Tobacco Type: cigarettes ; Cigarettes Per Day: 20 ; Do You Dip or Chew Tobacco: No ; Second Hand Exposure: No ; Tobacco Cessation Education Requested by Patient: No Hx Alcohol Use: No Hx Substance Use: No Review of Systems Constitutional: + weakness (in L leg and arm ); no fever, no chills and no fatigue Eyes: no blind spots, no eye pain, no loss of peripheral vision, no photophobia, not seeing flashes and no spots in vision Ear, Nose, Mouth, Throat: no tinnitus and no dizziness Respiratory: no cough, no chest congestion, no dyspnea, no dyspnea on exertion and no pain on inspiration Cardiovascular: no chest pain, no radiating jaw, neck or arm pain, no dyspnea, no palpitations, no lightheadedness and no edema Gastrointestinal: no abdominal pain, no nausea, no vomiting, no constipation and no diarrhea/loose stools Genitourinary: no dysuria Musculoskeletal: + muscle weakness (L arm and leg heaviness) Neurologic: + localized weakness (L arm and leg ); no loss of sensation, no numbness, no radiating pain, no tremor(s), no restless legs, no headache(s), no abnormal speech, no confusion and no memory loss Psychiatric: no confusion Physical Exam Constitutional: well developed, well nourished and cooperative; no acute distress, not disheveled, not in distress, not combative and not lethargic Eyes: normal visual velasco by confrontation, PERRL, EOM intact bilaterally and reactive pupils; no photophobia ENMT: Ears: no hearing impairment and no external ear abnormality Mouth: + tongue abnormality (tongue deviation to the LEFT) Throat: uvula midline Neck: trachea midline, no thyromegaly Respiratory: normal respiratory effort, lungs clear to auscultation Cardiovascular: RRR, no murmur, no edema Gastrointestinal (Abdomen): normal bowel sounds, soft, nontender, no hepatosplenomegaly Musculoskeletal: Head/Neck/Chest: + head abnormal to inspection, normocephalic, head atraumatic and neck supple; full ROM of neck Spine: normal cervical ROM Extremities: strength 5/5 throughout (L UE and LE relatively weaker than R, but still 5/5 ) Skin: no rashes, warm and dry Neurologic: normal touch/pain/proprioception, moves all extremities and awake; not confused and not obtunded Speech / Cognition: normal speech Motor/Sensory: no tremor Cranial Nerves: PERRL, normal accommodation, normal hearing, able to rotate head bilaterally, able to elevate shoulders bilaterally and symmetric palate elevation; + tongue not midline (Tongue deviation to the LEFT) Coordination: normal [id number] test Did not assess gait Psychiatric: A+Ox3, euthymic affect Results & Data Vital Signs (Past 12 Hours) Vital Signs Temp Pulse Pulse Resp BP BP Pulse Ox 05/08/19 10:46 66 10 L 99 05/08/19 10:45 64 12 111/75 05/08/19 10:37 68 17 124/81 100 05/08/19 10:33 65 23 136/85 98 05/08/19 10:31 63 18 98 05/08/19 10:30 36.6 C 61 16 132/89 97 05/08/19 10:00 68 19 135/91 99 05/08/19 09:46 74 17 135/91 100 05/08/19 09:30 67 22 122/81 95 05/08/19 09:15 71 15 128/100 100 05/08/19 09:00 67 17 128/88 95 05/08/19 08:35 36.8 C 67 20 147/91 H 100 Resident Activity Tracking Resident Involvement: Resident Care Provided Care Provided: Adult Hospital Medicine (1) CVA (cerebrovascular accident) CVA mechanism: unspecified Qualified Code(s): I63.9 - Cerebral infarction, unspecified
--- NOTE | 2019-05-08 12:06 | Magnetic Resonance Report ---
MRI OF THE BRAIN WITHOUT IV CONTRAST CLINICAL HISTORY: Strokelike symptoms. COMPARISON STUDY: CT of the brain dated 05/08/2019. TECHNIQUE: MRI of the brain was performed utilizing various T1 and T2-weighted sequences in the axial , sagittal, and coronal planes. IV contrast was not administered for this examination. FINDINGS: Brain parenchyma: Minimal microangiopathic change is similar to previous. The brain parenchyma is oth erwise normal in appearance. There is no hemorrhage or mass effect. There is no restricted diffusion to suggest acute ischemia. Jane-white matter differentiation is preserved. No extra-axial fluid colle ction is seen. The cerebellar tonsils are normal in configuration. Ventricles, sulci, and cisterns: Normal in configuration. Pituitary and sella: Unremarkable. Intracranial vasculature: Normal flow voids are maintained at the skull base. Orbits: The bony orbits are grossly intact. Orbital contents are normal in appearance. Sinuses and mastoids: There is trace fluid in the right sphenoid sinus. The remaining paranasal sinus es are clear. The mastoid air cells are well pneumatized. Calvarium: Unremarkable. Cervical cord: Partially visualized cervical spinal cord is normal in morphology and signal intensity . IMPRESSION: No acute intracranial abnormality. ACT 112: Negative or not required by law. Results electronically sent 05/08/2019 12:04 PM to: Jasbir Powell MD Electronically signed by: Trip Varghese M.D. 05/08/2019 12:04 PM
--- NOTE | 2019-05-08 13:58 | Neurology Consultation ---
Date of Consultation May 08, 2019 Assessment & Plan (1) Stroke-like symptoms: 1. MRI brain- no acute findings 2. CTA head/neck- no significant stenosis or occlusion 3. PT/OT for discharge needs- appear to be no needs at this time 4. TTE if not done 5. hypercoag work up done during the 2017 hospitalization 6. optimize HTN, HLD LDL <70 7. once tPa protocol - after 24 hours restart aspirin 81 mg and add plavix 75 mg x 21 days and then plavix for life 8. smoking cessation- needs to eliminate associated risks 9. no triptans stop using imitrex. could use gabepentin 100 mg with motrin or tylenol at onset of migraine can be repeated (2) Tobacco abuse: (3) COPD (chronic obstructive pulmonary disease): (4) Hypoxia: Supervising Physician Co-Signing Physician Notes I have seen and discussed above patient with Dr Jasbir Mock, neurology I have seen and examined this woman interviewed her in the presence of her and reviewed her medical records I discussed her case with Eryn Melissa PA-C who saw her during a prior hospitalization in 2017 when she presented with a very similar left hemisensory deficit and low-grade headache that was attributed to a complicated migraine Subsequently she is being followed by Dr. Jaime takes Imitrex although she has been cautioned against this and takes no preventative treatment although her follow-up has been a little sparse She now presents with a recurrent left hemisensory deficit involving face and arm of about 4 hours duration without associated headache with very minimal if any findings evidence of sensory loss which is now clear and received TPA which may or may not have been historically associated with improvement. We are going to treat this as if it indeed was a vascular non-migrainous transient ischemic attack I favor a migraine etiology and agree with dual antiplatelet therapy for 21 days, avoid use of triptans, and assuming that we see no evidence for hemorrhage on repeat CT scans and no evidence for acute infarction and subsequent imaging studies have her follow-up with Dr. Jaime and address whether or not she might benefit from some preventative migraine treatment Dr. Askew will be seeing her tomorrow with Eryn Melissa is Jasbir Mock MD On History of Present Illness Reason for Consultation: stroke-like symptoms Requesting Physician: Jasbir Powell MD Attending Physician: Jasbir Powell MD History of Present Illness Sophia is a 48 year old female with PMH Migraines w/ possible aura, complex migraines, COPD, Depression, possible prior TIA, and tobacco use that noted symptoms of L facial drooping and L arm and L leg weakness at 7:15 am morning of arrival to [facility] ED. She states she was sitting in her car smoking a cigarette when she noticed her symptoms of L facial droop, blurred vision, nausea, L arm and L leg "heaviness." CT Head and CTA neck were unremarkable. She was determined to have no risk factors for administration of tPa. She states currently she feel tired but the other symptoms have resolved. She had a similar incident 2 years ago that also affected her L side in the same way which she states was determined to be a complex migraine. She notes that she gets 2-3 migraines a month, typically starting as a tingling/discomfort in the back of her neck which then moves to the front and center of her forehead. She takes Imitrex as an abortive, but has no other medications she takes on a daily basis for prevention. She also notes that roughly 1 month ago she stopped taking her effexor for depression on her own. when this happened in the past she had a hype rcoag work up which was negative because she had + miss carriage in past and mom hx of blood clots in legs. denies CP, SOB, abdominal pain current one sided weakness numbness tingling, N, V, headache, bowel or bladder issues. Allergies Allergy/AdvReac Type Severity Reaction Status Date / Time strawberry Allergy Unknown ANAPHYLAXIS Verified 03/05/18 06:34 Home Medications Home Medications Medication Instructions Recorded Confirmed Type albuterol sulfate 2 puff INHALATION Q4 PRN 03/05/18 05/08/19 History aspirin 81 mg PO DAILY 03/05/18 05/08/19 History sumatriptan succinate 100 mg PO UD PRN 03/05/18 05/08/19 History venlafaxine 37.5 mg PO DAILY 03/05/18 05/08/19 History fluticasone furoate-vilanterol 1 inha INH DAILY #1 ea 03/07/18 05/08/19 Rx [Breo Ellipta] Patient History Medical History Asthma (Chronic) Depression (Chronic) HLD (hyperlipidemia) (Chronic) Migraine (Chronic) Sinus infection (Chronic) TIA (transient ischemic attack) (Resolved) Surgical History H/O tubal ligation (Resolved) Family History Other Family history non-contributory Social History Preferred Language: Bulgarian Communication Ability: Effective Communication Ability Comment: left handed, unable to write/weakness 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 Beliefs That Will Affect Care: None Current Living Situation: Spouse Other Information That Helps Us Care for You: No Feels Safe at Home: Yes Safety Concerns: Feels Safe At This Time Smoking Status: Current every day smoker Tobacco Type: cigarettes ; Cigarettes Per Day: 20 ; Do You Dip or Chew Tobacco: No ; Second Hand Exposure: No ; Tobacco Cessation Education Requested by Patient: No Hx Alcohol Use: No Hx Substance Use: No Physical Exam Physical Exam: Physical Exam: Constitutional: appearance over nourished, healthy and normal Ears, Nose, Mouth and Throat: mucous membranes moist, no injection and skin normal, eyes normal Cardiovascular: normal S-1 and S-2 and regular rate and rhythm Respiratory: course breath sounds Musculoskeletal: no peripheral edema and good distal pulses Skin: no stigmata of neurocutaneous disease noted and normal and intact Eyes: extraocular muscles intact (EOMI) and pupils equal, round and reactive to light (PERRL) NEUROLOGIC EXAMINATION: Mental status: Alert and interactive Oriented to full date and location Oriented to person Speech fluent with no evidence of aphasia Cranial Nerves smile and eye brow raise symmetric Reflexes: Deep tendon reflexes were symmetrical and graded 2/5. down going toes Sensory: light cool touch Coordination: finger to nose no bi pass Gait/Stance: Posture normal. sitting up in bed Motor: Negative for pronator drift of out stretched arms with eyes closed. 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, hip flex patellar plantar flex ext bilaterally 5/5 Results & Data Vital Signs (Past 12 Hours) Vital Signs Temp Pulse Pulse Resp BP BP Pulse Ox 05/08/19 13:15 54 L 16 124/80 95 05/08/19 12:45 66 16 105/83 94 05/08/19 12:15 71 64 17 129/84 129/84 93 05/08/19 12:00 77 19 95 05/08/19 11:57 21 05/08/19 11:00 68 17 98 05/08/19 10:46 66 10 L 99 05/08/19 10:45 36.8 C 64 60 18 111/75 111/75 97 05/08/19 10:37 68 17 124/81 100 05/08/19 10:33 65 23 136/85 98 05/08/19 10:31 63 18 98 05/08/19 10:30 36.6 C 61 63 18 132/89 132/89 97 05/08/19 10:00 68 19 135/91 99 05/08/19 09:46 74 17 135/91 100 05/08/19 09:30 67 22 122/81 95 05/08/19 09:15 71 15 128/100 100 05/08/19 09:00 67 17 128/88 95 05/08/19 08:35 36.8 C 67 20 147/91 H 100 Laboratory Results Abnormal lab results 05/08/19 Range/Units 08:10 Chloride 108 H (98-107) mmol/L Glucose 107 H (70-99) mg/dl Diagnostic Findings CT head-No acute intracranial abnormality. CXR- No acute cardiopulmonary findings. CTA head/neck- There is no hemorrhage, mass effect, or evidence of acute territorial ischemia by CT criteria noting angiographic phase technique. Unremarkable CT angiogram of the brain. Unremarkable CT angiogram of the neck. MRI brain-No acute intracranial abnormality.
--- NOTE | 2019-05-08 18:08 | Electrocardiogram Report ---
Test Reason : Blood Pressure : / mmHG Vent. Rate : 064 BPM Atrial Rate : 064 BPM P-R Int : 108 ms QRS Dur : 078 ms QT Int : 418 ms P-R-T Axes : -12 061 047 degrees QTc Int : 431 ms Sinus rhythm with short DC Otherwise normal ECG When compared with ECG of 05-MAR-2018 02:07, Vent. rate has decreased BY 53 BPM Confirmed by Prince Liao ([id number]) on 05/08/2019 6:08:17 PM Referred By: REFERRED SELF Confirmed By:Prince Liao
[2019-05-09] MEDS ORDERED: NICOTINE POLACRILEX 2 MG GUM MT PRN (04:09)
[2019-05-09 04:54] LABS: Basophils # (auto) 0.02 K/uL (0-0.2); Basophils % (auto) 0.3 %; Eosinophils # (auto) 0.38 K/uL (0-0.5); Eosinophils % (auto) 4.8 %; Hematocrit (blood only) 37.5 % (37-47); Hemoglobin 12.3 g/dL (12.0-16.0); Immature Granulocytes # (auto) 0.02 K/uL (0.00-0.02); Immature Granulocytes % (auto) 0.3 %; Lymphocytes # (auto) 2.92 K/uL (1.2-3.4); Lymphocytes % (auto) 36.5 %; Mean Corpuscular Hemoglobin 27.9 pg (25-34); Mean Corpuscular Hgb Conc 32.8 g/dL (32-36); Mean Platelet Volume 9.9 fL (7.4-10.4); Monocytes # (auto) 0.47 K/uL (0.11-0.59); Monocytes % (auto) 5.9 %; Neutrophils # (auto) 4.19 K/uL (1.4-6.5); Neutrophils % (auto) 52.2 %; Platelet Count 294 K/uL (130-400); RDW Coefficient of Variation 14.1 % (11.5-14.5); RDW Standard Deviation 44.2 fL (36.4-46.3); Red Blood Count 4.41 M/uL (4.2-5.4)
[2019-05-09 05:14] LABS: BUN Creatinine Ratio 24.7 (10-20); Calcium 8.5 mg/dl (8.5-10.1); Creatinine Clr Calc Pharmacy 100.8 ml/min; Est GFR (African American) 121.3; Est GFR (Non-African American) 104.7; Magnesium 1.8 mg/dl (1.8-2.4)
[2019-05-09 05:15] LABS: Phosphorus 3.8 mg/dl (2.5-4.9)
[2019-05-09 07:39] LABS: Estimated Average Glucose 137 mg/dl; Hemoglobin A1C 6.4 % (4.5-5.6)
--- NOTE | 2019-05-09 08:03 | Emergency Department Note ---
Entered by Elenita Way acting as a scribe for Corina Shelton DO History of Present Illness General Chief complaint: Stroke Alert Source: patient Mode of arrival: EMS History of Present Illness Onset (ago): hour(s) (0715 this morning) Location: head (weak) Pain Consistency: + other (sudden) Quality: + other (heaviness) Associated symptoms: + weakness and + other (Left arm and leg heaviness, left sided facial weakness/droop) Treatments prior to arrival: none The patient is a 48 year old female presenting to the Emergency Department via EMS complaining of sudden weakness starting at 0715 this morning. The patient reports that she was sitting in her car smoking a cigarette at 0715 and that the left side of her face suddenly became weak and she noticed that she had a facial droop. She states that her left arm and leg feel heavy. She explains that she experienced these same symptoms 2 years ago when she was diagnosed with a TIA. She notes that she has a history of complex migraines but doesnt get numbness, weakness, speech slurring or facial droop. She adds that she took no medications for her symptoms [employer]OX [employer]ER. The patients reports that the patient experienced similar symptoms about 2 years ago and at that time was diagnosed with TIA. He states that the patient also experienced left sided weakness and a left sided facial droop at that time. He explains that he was on the phone with the patient this morning at 0715 when she began to complain of a left sided facial droop. He notes that the patient was not complaining of a headache when her weakness onset. Patient denies any recent trauma or change in activity. No recent illness. No change in medications. Home Medications Home Medications Medication Instructions Recorded Confirmed Type albuterol sulfate 2 puff INHALATION Q4 PRN 03/05/18 05/08/19 History aspirin 81 mg PO DAILY 03/05/18 05/08/19 History sumatriptan succinate 100 mg PO UD PRN 03/05/18 05/08/19 History venlafaxine 37.5 mg PO DAILY 03/05/18 05/08/19 History fluticasone furoate-vilanterol 1 inha INH DAILY #1 ea 03/07/18 05/08/19 Rx [Breo Ellipta] Allergies Allergy/AdvReac Type Severity Reaction Status Date / Time strawberry Allergy Unknown ANAPHYLAXIS Verified 03/05/18 06:34 Past Med/Surg History Medical History Asthma (Chronic) Depression (Chronic) HLD (hyperlipidemia) (Chronic) Migraine (Chronic) Sinus infection (Chronic) TIA (transient ischemic attack) (Resolved) Surgical History H/O tubal ligation (Resolved) Family History (Updated 05/09/19 @ 04:03 by Jasbir Powell MD) Father Hypertension Stroke Sister Breast cancer Grandmother (Maternal) Pancreatic cancer Social History Preferred Language: Irish Communication Ability: Effective Communication Ability Comment: left handed, unable to write/weakness Nodulizer Required: No Beliefs That Will Affect Care: None Current Living Situation: Spouse Other Information That Helps Us Care for You: No Feels Safe at Home: Yes Safety Concerns: Feels Safe At This Time Smoking Status: Current every day smoker Tobacco Type: cigarettes ; Cigarettes Per Day: 20 ; Do You Dip or Chew Tobacco: No ; Second Hand Exposure: No ; Tobacco Cessation Education Requested by Patient: No Hx Alcohol Use: No Hx Substance Use: No Review of Systems See HPI for pertinent positives & negatives. and A total of 10 systems reviewed and were otherwise negative Physical Exam Vital Signs Vital Signs - 24 hr 05/08/19 08:35 Temperature 36.8 C Temperature Source Oral Pulse Rate 67 Respiratory Rate 20 Respiratory Effort / Characteristics Non-Labored Spontaneous Respiratory Depth Normal Blood Pressure 147/91 H Blood Pressure Mean 109 Pulse Oximetry 100 Oxygen Delivery Method Room Air Sepsis Recent Fever Within 48 Hours No Sepsis Action Taken by Nursing No Action Required GENERAL: alert, well appearing, well nourished, no distress, non-toxic EYE EXAM: normal conjunctiva, PERRL and EOM's grossly intact OROPHARYNX: no exudate, no erythema, lips, buccal mucosa, and tongue normal and mucous membranes are moist NECK: supple, no nuchal rigidity, no adenopathy, non-tender LUNGS: Decreased breath sounds. No wheeze, rhonchi or rales. Normal chest wall m echanics HEART: no murmurs, S1 normal and S2 normal ABDOMEN: abdomen soft, non-tender, normo-active bowel sounds, no masses, no rebound or guarding. BACK: Back is symmetrical on inspection and there is no deformity, no midline tenderness, no CVA tenderness. SKIN: no rashes and no bruising UPPER EXTREMITIES: upper extremities are grossly normal. FROM, nml pulses b/l. LOWER EXTREMITIES: No pitting edema. FROM, nml pulses b/l. NEURO EXAM: Left sided facial droop. LUE weakness. Mild ataxia. LLE weakness. NIH stroke score 4. Course Course 0815: The patient was evaluated in room B1, and a complete history and physical examination were performed. The patient was immediately taken to CT as a code stroke had been initiated prehospital. EMS reports no change in symptoms. 0822: I discussed the patient's case with Dr. Beverley Griffith telestroke neurologist. He will call and evaluate the patient. 0828: Dr. Lowery is evaluating the patient at this time. 0844: I reevaluated the patient at this time. 0845: The patient and her consented to TPA at this time. 0851: I spoke to Dr. Lowery at this time. He will provide further instructions for the patients. TPA is currently being given. I will move forward with the admission process for the patient. 0915: I discussed the patient's case with Dr. Sherry Rock [facility] [address] hospitalist. He will evaluate the patient for further management. Administered Medications Ioversol (Optiray 320 125ml) 120 ml IV ONCE PRN PRN Reason: Interaction Checking Stop: 05/12/19 08:27 Last Admin: 05/08/19 08:28 Dose: 120 ml Documented by: [id number] Discontinued Medications Alteplase, Recombinant (Activase For Stroke) 1 ea IV NOW STA; Protocol Stop: 05/08/19 08:36 Last Admin: 05/08/19 14:53 Dose: Not Given Documented by: [id number] Alteplase, Recombinant 7.4 mg/ (Syringe) 7.4 mls @ 7.4 mls/min IV ONCE ONE Stop: 05/08/19 08:46 Last Admin: 05/08/19 08:45 Dose: 7.4 mls/min Documented by: [id number] Cosigned by: [id number] Alteplase, Recombinant 67 mg/ (EMPTY BAG) 67 mls @ 67 mls/hr IV ONCE ONE Stop: 05/08/19 08:47 Last Infusion: 05/08/19 09:53 Dose: 0 mls/hr Documented by: [id number] Cosigned by: [id number] Admin: 05/08/19 08:53 Dose: 67 mls/hr Documented by: [id number] Cosigned by: [id number] Critical Care Time Critical Care Time: Yes Total Critical Care Time: 35 Critical care of 35 min performed to assess and manage high likelihood of life- threatening strokelike symptoms, involving emergent labs and imaging performed with assessment to evaluate CVA diagnosis with frequent reassessment. This time includes bedside time, treatment discussions with patient/family/consultants, documentation time and excludes procedure time. Medical Decision Making Differential Diagnosis Differential Diagnosis includes but is not limited to ischemic Stroke, hemorrhagic stroke, bells palsy, mass, neoplasm, migraine headache, seizure, subarachnoid hemorrhage, TIA, and transient global amnesia. Medical Records Attestation: I reviewed the patient's medical records. Home Medications Current Medication List: was personally reviewed by me Laboratory Data Attestation: I reviewed the patient's lab results. Result diagrams: 05/09/19 04:34 05/09/19 04:34 Lab Results 05/08/19 05/08/19 05/08/19 Range/Units 08:10 08:10 08:39 WBC 8.52 (4.8-10.8) K/uL RBC 4.61 (4.2-5.4) M/uL Hgb 13.1 (12.0-16.0) g/dL Hct 38.7 (37-47) % MCV 83.9 (80-100) fL MCH 28.4 (25-34) pg MCHC 33.9 (32-36) g/dL RDW Std Deviation 42.7 (36.4-46.3) fL RDW Coeff of Madi 14.0 (11.5-14.5) % Plt Count 315 (130-400) K/uL MPV 10.1 (7.4-10.4) fL Immature Gran % (Auto) 0.1 % Neut % (Auto) 54.5 % Lymph % (Auto) 36.5 % [place] % (Auto) 5.2 % Eos % (Auto) 3.5 % Baso % (Auto) 0.2 % Immature Gran # (Auto) 0.01 (0.00-0.02) K/uL Neut # (Auto) 4.64 (1.4-6.5) K/uL Lymph # (Auto) 3.11 (1.2-3.4) K/uL [place] # (Auto) 0.44 (0.11-0.59) K/uL Eos # (Auto) 0.30 (0-0.5) K/uL Baso # (Auto) 0.02 (0-0.2) K/uL PT (9.0-12.0) Seconds INR (0.9-1.1) APTT (21.0-31.0) Seconds PTT Ratio Sodium 139 (136-145) mmol/L Potassium 3.7 (3.5-5.1) mmol/L Chloride 108 H (98-107) mmol/L Carbon Dioxide 24 (21-32) mmol/L Anion Gap 6.0 (3-11) BUN 12 (7-18) mg/dl Creatinine 0.75 (0.6-1.2) mg/dl Est Cr Clr Drug Dosing 90.1 ml/min Est GFR ( Amer) 110.0 Est GFR (Non-Af Amer) 94.9 BUN/Creatinine Ratio 16.3 (10-20) Glucose 107 H (70-99) mg/dl Calcium 9.0 (8.5-10.1) mg/dl Magnesium 1.8 (1.8-2.4) mg/dl Total Bilirubin 0.3 (0.2-1) mg/dl AST 22 (15-37) U/L ALT 15 (12-78) U/L Alkaline Phosphatase 76 (45-117) U/L POC Troponin I < 0.03 (0-0.045) ng/ml Troponin I < 0.015 (0-0.045) ng/ml Total Protein 7.4 (6.4-8.2) gm/dl Albumin 3.5 (3.4-5.0) gm/dl Globulin 3.9 (2.5-4.0) gm/dl Albumin/Globulin Ratio 0.9 (0.9-2) Specimen Hemolysis Blood Type Antibody Screen 05/08/19 05/08/19 Range/Units 08:42 08:42 WBC (4.8-10.8) K/uL RBC (4.2-5.4) M/uL Hgb (12.0-16.0) g/dL Hct (37-47) % MCV (80-100) fL MCH (25-34) pg MCHC (32-36) g/dL RDW Std Deviation (36.4-46.3) fL RDW Coeff of Madi (11.5-14.5) % Plt Count (130-400) K/uL MPV (7.4-10.4) fL Immature Gran % (Auto) % Neut % (Auto) % Lymph % (Auto) % [place] % (Auto) % Eos % (Auto) % Baso % (Auto) % Immature Gran # (Auto) (0.00-0.02) K/uL Neut # (Auto) (1.4-6.5) K/uL Lymph # (Auto) (1.2-3.4) K/uL [place] # (Auto) (0.11-0.59) K/uL Eos # (Auto) (0-0.5) K/uL Baso # (Auto) (0-0.2) K/uL PT 10.5 (9.0-12.0) Seconds INR 1.0 (0.9-1.1) APTT 24.1 (21.0-31.0) Seconds PTT Ratio 0.9 Sodium (136-145) mmol/L Potassium (3.5-5.1) mmol/L Chloride (98-107) mmol/L Carbon Dioxide (21-32) mmol/L Anion Gap (3-11) BUN (7-18) mg/dl Creatinine (0.6-1.2) mg/dl Est Cr Clr Drug Dosing ml/min Est GFR ( Amer) Est GFR (Non-Af Amer) BUN/Creatinine Ratio (10-20) Glucose (70-99) mg/dl Calcium (8.5-10.1) mg/dl Magnesium (1.8-2.4) mg/dl Total Bilirubin (0.2-1) mg/dl AST (15-37) U/L ALT (12-78) U/L Alkaline Phosphatase (45-117) U/L POC Troponin I (0-0.045) ng/ml Troponin I (0-0.045) ng/ml Total Protein (6.4-8.2) gm/dl Albumin (3.4-5.0) gm/dl Globulin (2.5-4.0) gm/dl Albumin/Globulin Ratio (0.9-2) Specimen Hemolysis Blood Type A Negative Antibody Screen NEGATIVE Imaging Data Radiologist's Impression: Radiology results as stated below per my review and the radiologist's interpretation: CT ANGIOGRAM OF THE BRAIN; CT ANGIOGRAM OF THE NECK CLINICAL HISTORY: Strokelike symptoms. COMPARISON STUDY: Unenhanced CT of the brain performed the same day 05/08/2019. CT angiogram of the brain dated 08/23/2016. Carotid artery ultrasound dated 08/23/2016. TECHNIQUE: Following the IV administration of 120 of Optiray 320, CT angiogram of the head and neck was performed from the aortic arch to the vertex. Images are reviewed in the axial, sagittal, and coronal planes. 3-D MIPS images are created and assessed. IV contrast was administered without complication. All measurements were calculated based on NASCET criteria. A dose lowering te chnique was utilized adhering to the principles of ALARA. CT DOSE: 635.16 mGy.cm FINDINGS: Brain parenchyma: The brain parenchyma is normal in appearance. There is no hemorrhage, mass effect, or evidence of acute territorial ischemia by CT criteria. There is no evidence of enhancing mass lesion on the angiogram phase images. The ventricles, sulci, and cisterns are normal in configuration. Jane- white matter differentiation is preserved. No extra-axial fluid collection is seen. Thoracic aorta: Visualized portions of the thoracic aorta are normal in caliber. The aortic arch demonstrates standard 3-vessel anatomy. Right carotid arterial system: The right common carotid artery is widely patent, as are the right internal and external carotid arteries. Left carotid arterial system: The left common carotid artery is widely patent, as are the left internal and external carotid arteries. Vertebral arteries: The vertebral arteries are widely patent bilaterally and codominant. Subclavian arteries: Widely patent bilaterally. Intracranial vasculature: There is origin of the right posterior cerebral artery. The internal carotid arteries are patent at the skull base, as are the anterior and middle cerebral arteries bilaterally. The vertebrobasilar system and posterior cerebral arteries are widely patent. The vertebral arteries are codominant. There is no aneurysm, high-grade stenosis, or focal vessel cut off seen throughout the intracranial circulation. Jugular veins: Patent bilaterally. Dural sinuses: Patent. Lung apices: Partially visualized upper lobe lung parenchyma appears clear. Soft tissues: The visualized pharyngeal soft tissues are normal in appearance noting angiographic phase technique. The oropharyngeal airway appears widely patent. The salivary and thyroid glands are normal in appearance. No cervical lymphadenopathy is seen. Skeletal structures: The calvarium appears intact. The cervical spine is maintained noting mild multilevel spondylosis. Sinuses and mastoids: There is trace fluid within the right sphenoid sinus. The remaining paranasal sinuses are clear. The mastoid air cells are well pneumatized. IMPRESSION: 1. There is no hemorrhage, mass effect, or evidence of acute territorial ischemia by CT criteria noting angiographic phase technique. 2. Unremarkable CT angiogram of the brain. 3. Unremarkable CT angiogram of the neck. ACT 112: Negative or not required by law. Electronically signed by: Trip Varghese M.D. 05/08/2019 8:[address] SCAN OF THE BRAIN WITHOUT IV CONTRAST CLINICAL HISTORY: Strokelike symptoms. COMPARISON STUDY: CT of the brain dated 08/24/2016. TECHNIQUE: Unenhanced axial CT scan of the brain is performed from the vertex to the skull base. A dose lowering technique was utilized adhering to the principles of ALARA. CT DOSE: 537.48 mGy.cm FINDINGS: Brain parenchyma: The brain parenchyma is normal in appearance. There is no hemorrhage, mass effect, or evidence of acute territorial ischemia by CT criteria. Jane-white matter differentiation is preserved. No extra-axial fluid collection is seen. Ventricles, sulci, cisterns: Normal in configuration. Intracranial vasculature: The visualized intracranial vasculature at the skull base is normal in appearance. Calvarium: Unremarkable. Sinuses and mastoids: Trace fluid is noted in the right sphenoid sinus. The visualized paranasal sinuses are otherwise clear. The mastoid air cells are well pneumatized. Orbits: The bony orbits are grossly intact. IMPRESSION: No acute intracranial abnormality. ACT 112: Negative or not required by law. Electronically signed by: Trip Varghese M.D. 05/08/2019 8:26 AM ECG Data Attestation: I personally reviewed and interpreted this ECG as follows: Indication: + weakness Rate (beats per minute): 64 Rhythm: + sinus rhythm ECG Intervals/blocks: + Normal QRS, + Normal QT and + Normal QT-c ECG [place]: + Normal ECG Findings: + Other (No acute ischemia.); no PACs and no PVCs Blood Pressure Blood Pressure Findings: Elevated blood pressure Blood Pressure Disposition: further management by hospitalist KAY Narrative Cardiac Monitoring: An order was placed for continuous cardiac monitoring. The monitor shows a rate of 67 with sinus rhythm. Patient made a stroke alert prehospital based on EMS evaluation and taken immediately to CT. [place] [facility] contacted emergently who performed a exam via the stroke monitor. Patient's initial stroke score was 4. No evolving changes, patient within the window for TPA. The tele-neurologist spoke with patient and family at bedside regarding TPA and they were in agreement. Pharmacy was contacted and orders placed, and this came to bedside. Case discussed with hospitalist for additional inpatient management. Patient remained hemodynamically stable in the emergency room, no hypertension. No other contraindications to administration of TPA. Consent obtained at bedside after discussion with tele-neurologist. flight operations coordinator present throughout. Impression & Plan CVA (cerebrovascular accident), Tobacco abuse Discharge Plan Visit Data *Final* Discharge Date/Time: 05/08/19 10:03 Chief Complaint: Stroke Alert ED Provider: Corina Shelton Discharge Problem: CVA (cerebrovascular accident), Tobacco abuse Patient Disposition: Admitted As Inpatient Discharge Instructions Interventions: ED Discharge Assessment Last Done: 05/08/19 10:03 Discharge Problem: CVA (cerebrovascular accident) Qualifiers: CVA mechanism: unspecified Qualified Code(s): I63.9 - Cerebral infarction, un specified The scribe's documentation has been prepared under my direction and personally reviewed by me in its entirety. I confirm that the note above accurately reflects all work, treatment, procedures, and medical decision making performed by me.
[2019-05-09] MEDS ORDERED: NICOTINE 7 MG/24 HR TDSY TD SCH (09:00)
[2019-05-09] MEDS ORDERED: UMECLIDINIUM BROMIDE 62.5MCG/BLISTER 7 PUFFS/INHALER INH SCH (09:00)
[2019-05-09] MEDS ORDERED: VENLAFAXINE HCL XR 37.5 MG CAPXR PO SCH (09:00)
--- NOTE | 2019-05-09 09:21 | CT Scan Report ---
HEAD CT NONCONTRAST CT DOSE: 537.48 mGy.cm HISTORY: Stroke like symptoms. TPA Follow Up TECHNIQUE: Multiaxial CT images of the head were performed without the use of intravenous contrast. A utomated exposure control was utilized for this study. A dose lowering technique was utilized adheri ng to the principles of ALARA. Comparison: Head CT 05/08/2019. Findings: The paranasal sinuses and mastoid air cells are clear. The calvarium and skull base are int act. The ventricles and sulci are within normal limits. There is no mass, hematoma, midline shift, or acute infarct. Impression: No acute intracranial abnormality. ACT 112: Negative or not required by law. Results electronically sent 05/09/2019 9:20 AM to: Anshul Loo MD Electronically signed by: Joshua Fajardo M.D. 05/09/2019 9:20 AM
--- NOTE | 2019-05-09 09:29 | Pulmonology Progress Note ---
Date of Service May 09, 2019 Assessment & Plan (1) Status post admission to intensive care unit: Patient status post TPA. Reportedly with an NIH stroke scale of 0. Patient is essentially asymptomatic today except for some very mild left hand pain. She denies any numbness or tingling. Her exam is completely benign. MRI of the brain was unremarkable. Echo was unremarkable. We are repeating a CT of her head post TPA today. She needs to quit smoking. We had a lengthy discussion regarding smoking cessation. She will need an evaluation for obstructive sleep apnea as an outpatient as well. Appreciate neurology consultation. Follow the recommendations regarding antiplatelets, speech therapy, physical therapy and statin medications. She is safe to be transferred to the floor. (2) CVA (cerebrovascular accident): CVA mechanism: unspecified Qualified Code(s): I63.9 - Cerebral infarction, unspecified (3) Tobacco abuse: (4) Stroke-like symptoms: Subjective Patient denies any complaint. Has some mild pain in her left hand. No chest pain. No dizziness. No acute events overnight. Physical Exam Constitutional: well developed, well nourished and cooperative; no acute distress, not disheveled, not in distress, not combative and not lethargic Eyes: normal visual [place]co by confrontation, PERRL, EOM intact bilaterally and reactive pupils; no photophobia ENMT: Ears: no hearing impairment and no external ear abnormality Throat: uvula midline Neck: trachea midline, no thyromegaly Respiratory: normal respiratory effort, lungs clear to auscultation Cardiovascular: RRR, no murmur, no edema Gastrointestinal (Abdomen): normal bowel sounds, soft, nontender, no hepatosplenomegaly Musculoskeletal: Head/Neck/Chest: + head abnormal to inspection, nor mocephalic, head atraumatic and neck supple; full ROM of neck Spine: normal cervical ROM Extremities: strength 5/5 throughout (L UE and LE relatively weaker than R, but still 5/5 ) Skin: no rashes, warm and dry Neurologic: normal touch/pain/proprioception, moves all extremities and awake; not confused and not obtunded Speech / Cognition: normal speech Motor/Sensory: no tremor Cranial Nerves: PERRL, normal accommodation, normal hearing, able to rotate head bilaterally, able to elevate shoulders bilaterally and symmetric palate elevation; + tongue not midline (Tongue deviation to the LEFT) Coordination: normal [id number] test Did not assess gait Psychiatric: A+Ox3, euthymic affect Results & Data ([facility]) Vital Signs (Past 12 Hours) Vital Signs Temp Pulse Resp BP Pulse Ox 05/09/19 08:45 98.4 F 70 18 115/85 95 05/09/19 07:45 98.4 F 71 16 126/89 94 05/09/19 06:45 68 20 115/77 95 05/09/19 05:45 66 20 119/89 94 05/09/19 04:45 74 24 123/84 96 05/09/19 03:45 64 20 125/86 95 05/09/19 02:45 64 20 108/72 96 05/09/19 01:45 68 18 132/84 97 05/09/19 00:45 98.1 F 64 19 130/70 96 05/08/19 23:45 71 20 113/70 96 05/08/19 22:45 67 18 113/70 98 05/08/19 21:45 95 H 15 105/69 93 PG Care Time/CCT Total # of Minutes Spent Total Time Spent with Patient: Total time spent is greater than 50% in coordination of care (as documented) at patient's floor/unit and/or counseling patient: Coding Level of Care Code 67837 Subseq Hosp Care Lvl 3 Diagnoses Status post admission to intensive care unit CVA (cerebrovascular accident) I63.9 CVA mechanism: unspecified Tobacco abuse Z72.0 Stroke-like symptoms R29.90
[2019-05-09] MEDS ORDERED: ASPIRIN 81 MG ECTAB PO SCH (10:15)
[2019-05-09] MEDS ORDERED: CLOPIDOGREL BISULFATE 75 MG TAB PO SCH (10:15)
--- NOTE | 2019-05-09 11:28 | Ultrasound Report ---
LEFT LOWER EXTREMITY VENOUS DOPPLER HISTORY: left calf pain COMPARISON STUDY: None. FINDINGS: There is normal compressibility, flow, and augmentation within the left lower extremity raffy p venous system. IMPRESSION: No DVT within the left lower extremity. ACT 112: Negative or not required by law. Results electronically sent 05/09/2019 11:27 AM to: Jasbir Powell MD Electronically signed by: Joshua Fajardo M.D. 05/09/2019 11:27 AM
[2019-05-09 12:45] VITALS: O2SAT 97
--- NOTE | 2019-05-09 14:33 | Billing Data ---
Date of Service May 09, 2019 Coding Level of Care Code Critical Care 1st 30-74 mins Time Spent (min) 41
--- NOTE | 2019-05-09 14:45 | Neurology Progress Note ---
Date of Service May 09, 2019 Assessment & Plan (1) Stroke-like symptoms: 1. MRI brain- no acute findings 2. CTA head/neck- no significant stenosis or occlusion 3. PT/OT for discharge needs- appear to be no needs at this time 4. TTE 60-65% EF no ASD 5. hypercoag work up done during the 2017 hospitalization 6. optimize HTN, HLD LDL <70 8. smoking cessation- needs to eliminate associated risks- patient understands 9. no triptans stop using imitrex. could use gabepentin 100 mg with motrin or tylenol at onset of migraine can be repeated ok to discharge once medically stable return to Dr Hermosillo clinic 4-6 weeks decide at that point plavix aspirin after 21 days. (2) Tobacco abuse: (3) COPD (chronic obstructive pulmonary disease): (4) Hypoxia: Admission and Anticipated Discharge Date Admission Date: May 08, 2019 Supervising Physician Co-Signing Physician Notes Patient was seen and examined. Patient currently back to baseline. Admitted for left hemiparesis which resolved. She did receive TPA. MRI negative for ischemic stroke. Had similar symptoms previous. No headache. Has history of migraine 1-2 per month relieved with Imitrex. She is a smoker. Not on migraine preventative medications. On examine no ataxia with finger to nose. Strength is symmetric. 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 - Continue ASA 81 mg daily - SMoking cessation - Zanaflex 2-8 mg Q8hr PRN for migraine abortive if needed. - Recommend starting MagOx 500 mg daily for migraine prophylaxis. Lindsay Cortes is a 48 year old female with PMH Migraines w/ possible aura, complex migraines, COPD, Depression, possible prior TIA, and tobacco use that noted symptoms of L facial drooping and L arm and L leg weakness at 7:15 am morning of arrival to [facility]. She states she was sitting in her car smoking a cigarette when she noticed her symptoms of L facial droop, blurred vision, nausea, L arm and L leg "heaviness." CT Head and CTA neck were unremarkable. She was determined to have no risk factors for administration of tPa. She states currently she feel tired but the other symptoms have resolved. She had a similar incident 2 years ago that also affected her L side in the same way which she states was determined to be a complex migraine. She notes that she gets 2-3 migraines a month, typically starting as a tingling/discomfort in the back of her neck which then moves to the front and center of her forehead. She takes Imitrex as an abortive, but has no other medications she takes on a daily basis for prevention. She also notes that roughly 1 month ago she stopped taking her effexor for depression on her own. when this happened in the past she had a hypercoag work up which was negative because she had + miss carriage in past and mom hx of blood clots in legs. She feels she is back to baseline wants to go home. denies CP, SOB, abdominal pain current one sided weakness numbness tingling, N, V, headache, bowel or bladder issues. Physical Exam Physical Exam: Gen: alert NAD lungs course breath sounds CV RRR no pronator drift finger to nose no bipass Results & Data ([facility]) Vital Signs (Past 12 Hours) Vital Signs Temp Pulse Resp BP Pulse Ox 05/09/19 11:30 36.5 C 71 18 112/75 97 05/09/19 08:45 36.9 C 70 18 115/85 95 05/09/19 07:45 36.9 C 71 16 126/89 94 05/09/19 06:45 68 20 115/77 95 05/09/19 05:45 66 20 119/89 94 05/09/19 04:45 74 24 123/84 96 05/09/19 03:45 64 20 125/86 95 05/09/19 02:45 64 20 108/72 96
[2019-05-09 15:33] VITALS: BP 106/68; TEMP 98.2
--- NOTE | 2019-05-09 18:26 | Hospitalist Progress Note ---
Date of Service May 09, 2019 Assessment & Plan (1) Stroke-like symptoms: Presented with stroke-like symptoms (left facial palsy, LUE and LLE weakness). Telestroke consultation obtained with [facility]. CT head and CTA of head and neck negative. No contraindication for thrombolytic therapy. TPA initiated in ED. Differential diagnosis included possible ischemic stroke, TIA, complex migraine, and other etiologies. Admitted to ICU for further evaluation and management per stroke protocol. MRI of brain was negative. Echocardiogram did not show any evidence of intracardiac thrombi or [id number] shunt. (Patient had 2 previous normal bubble studies, so bubble study was not r epeated.) She remained in normal sinus rhythm. 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 No need for further therapies. Seen in consultation by Neurology. No evidence of ischemic stroke per neuro imaging (CT and MRI). Had previous work-up for hypercoagulable conditions and repeat testing not necessary. [place] that most likely diagnosis was complex migraine, but that antiplatelet therapy for possible TIA would be prudent given symptoms. Dual antiplatelet therapy with aspirin and clopidogrel for 3 months followed by long-term antiplatelet therapy with clopidogrel was recommended. Importance of smoking cessation was emphasized repeatedly. Management of migraine symptoms as discussed below. Hemoglobin A1c was slightly elevated at 6.4, but not high enough to indicate diagnosis of diabetes. Fasting blood sugar was 112. Recheck fasting blood sugar and hemoglobin A1c periodically. LDL cholesterol was 98. Statin therapy not indicated: LDL < 100 no evidence of ischemic stroke on neuroimaging no evidence of atherosclerotic plaque / stenosis on CTA of head & neck. (2) Migraine: History of migraine headaches, managed with sumatriptan. [place] that current presentation may have been secondary to complex migraine. Triptans can cause/exacerbate complex migraines and discontinuation was recommended. Neurology recommended trial of gabapentin 100 mg with acetaminophen as needed to abort migraines. Outpatient follow-up with Neurology. (3) HLD (hyperlipidemia): History of dyslipidemia. LDL cholesterol was 98. Statin therapy not indicated at this time: LDL < 100 no evidence of ischemic stroke on neuroimaging no evidence of atherosclerotic plaque / stenosis on CTA of head & neck no history of ischemic heart disease (4) COPD (chronic obstructive pulmonary disease): Pulmonary status stable. (5) Tobacco abuse: Importance of smoking cessation emphasized repeatedly by the undersigned and other staff. May use [id number] nicotine replacement products such as nicotine patches and/or nicotine gum as directed. Will probably need ongoing supportive counseling in clinic. (6) Calf pain: Mild left calf tenderness noted on exam. Venous duplex negative for DVT. (7) DVT prophylaxis: No anticoagulants because of TPA. SCD's. (8) Discharge planning issues: Discharge to home. Family Medicine follow-up with Dr. Salas. Neurology follow-up with Dr. Hermosillo. Admission and Anticipated Discharge Date Admission Date: May 08, 2019 Subjective Recheck for stroke-like symptoms. Patient seen in their room around 1000 and reassessed in the evening. Feels well. Stroke-like symptoms have completely resolved. No headache. No complications from from thrombolytic therapy. Review of Systems: Constitutional- no fever. Cardiac- no chest pain. Pulmonary- no cough or SOB. GI- no nausea, vomiting, diarrhea, melena, hematochezia. - no urinary symptoms. Otherwise, as noted above. Physical Exam Constitutional: no acute distress Respiratory: no respiratory distress Auscultation: lungs clear to auscultation bilaterally Cardiovascular: Rate/Rhythm: regular rate and regular rhythm Vessels: no JVD Extremities: + calf tenderness (mild left calf tenderness); no edema Gastrointestinal (Abdomen): normal bowel sounds, soft, nontender, no hepatosplenomegaly Musculoskeletal: Extremities: no cyanosis Skin: no rashes, warm and dry Neurologic: alert, oriented x 3 PERRL, EOMI no facial palsy no dysarthria no aphasia motor strength upper and lower extremities intact Results & Data ([facility]) Vital Signs (Past 12 Hours) Vital Signs Temp Pulse Pulse Resp BP Pulse Ox 05/09/19 15:53 74 05/09/19 15:32 36.8 C 80 19 106/68 97 05/09/19 11:30 36.5 C 71 18 112/75 97 05/09/19 08:45 36.9 C 70 18 115/85 95 05/09/19 07:45 36.9 C 71 16 126/89 94 05/09/19 06:45 68 20 115/77 95
[2019-05-09] MEDS ORDERED: STROKE PATIENT DISCHARGE STA (18:43)
[2019-05-09 18:53] VITALS: PULSE 80
--- NOTE | 2019-05-09 19:24 | Pharmacy Report ---
Pharmacist Stroke Counseling - Date of Service May 09, 2019 - Scope: Pharmacy has been consulted to provide medication discharge counseling for this patient admitted with [ischemic stroke] [hemorrhagic stroke] [transient ischemic attack] as per the Pharmacist Discharge Counseling for Stroke Patients Christian clark - Medications on Discharge: Home Medications Medication Instructions Recorded Confirmed albuterol sulfate 2 puff INHALATION Q4 PRN 03/05/18 05/08/19 aspirin 81 mg PO DAILY 03/05/18 05/08/19 venlafaxine 37.5 mg PO DAILY 03/05/18 05/08/19 New Rx's Medication Instructions Recorded Breo Ellipta 1 inha INH DAILY #1 ea 03/07/18 clopidogrel 75 mg PO DAILY #30 tab 05/09/19 gabapentin 100 mg PO DAILY PRN #10 cap 05/09/19 - Action: The above medications, specifically ones for stroke treatment/prophylaxis, have been reviewed in detail with the patient and patient dealer compliance representative () prior to discharge. This includes indication, common adverse reactions, drug i nteractions, and medication administration. Medication counseling has been employed using the teach-back method to ensure understanding. - Outcome: The patient and patient dealer compliance representative () have demonstrated understanding of the medications. Please note, they are aware that the pharmacist will call them within 72 hours post-discharge to confirm that the appropriate medications are being taken and answer any further medication related questions the patient might have at that time. Contact information Individual to be contacted: self Relationship to patient (if applicable): N/A Phone number: [phone] Best time to call: anytime Additional comments: -reviewed why to stop Imitrex -reviewed to stop aspirin -reviewed to avoid Prilosec with Plavix -patient declined any smoking cessation material Thank you for allowing pharmacy to be involved in the care of this patient. Please call [phone] or [phone] with any additional questions
--- NOTE | 2019-05-10 09:06 | Discharge Summary ---
Date of Service Date of Admission: 05/08/19 Date of Discharge: 05/09/19 Admission HPI Per Admitting Provider 48-year-old female followed by Dr. Cora Salas for Family Medicine. History of migraines, possible TIA in past, dyslipidemia, and other problems as noted. This morning at 0715 she developed left facial palsy and mild to moderate weakness of left upper extremity and left lower extremity. No headache. She came to the ED for evaluation. Stroke alert was called. Head CT negative. CTA of head and neck negative. Tele-stroke consultation with [facility] obtained. Thrombolytic therapy recommended and TPA protocol initiated around 0845. Symptoms were improving by the time of my assessment around 0905. Principal Diagnosis stroke-like symptoms, most likely secondary to complex migraine (no evidence of stroke on CT or MRI) Discharge Data Allergies Allergy/AdvReac Type Severity Reaction Status Date / Time strawberry Allergy Unknown ANAPHYLAXIS Verified 03/05/18 06:34 Consultations 05/08/19 09:02 Consult Painter And Body Work Routine 05/08/19 09:16 ED Decision to Admit Stat 05/08/19 10:53 Consult Case Management - Discharge Planning Routine Consult Case Management - Discharge Planning Routine Consult Neurology Routine Ordered Studies 05/08/19 08:10 CT head/brain wo con Stat 05/08/19 08:21 CT angio head w con Stat CT angio neck with con Stat 05/08/19 10:53 MR brain wo con Routine 05/09/19 09:00 CT head/brain wo con Routine 05/09/19 10:16 US venous doppler LE Urgent Hospital Course (1) Stroke-like symptoms: Presented with stroke-like symptoms (left facial palsy, LUE and LLE weakness). Telestroke consultation obtained with [facility]. CT head and CTA of head and neck negative. No contraindication for thrombolytic therapy. TPA initiated in ED. Differential diagnosis included possible ischemic stroke, TIA, complex migraine, and other etiologies. Admitted to ICU for further evaluation and management per stroke protocol. MRI of brain was negative. Echocardiogram did not show any evidence of intracardiac thrombi or ygnug-ki-mznt shunt. (Patient had 2 previous normal bubble studies, so bubble study was not repeated.) She remained in normal sinus rhythm. 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 No need for further therapies. Seen in consultation by Neurology. No evidence of ischemic stroke per neuroimaging (CT and MRI). Had previous work-up for hypercoagulable conditions and repeat testing not necessary. [place] that most likely diagnosis was complex migraine, but that antiplatelet therapy for possible TIA would be prudent given symptoms. Dual antiplatelet therapy with aspirin and clopidogrel for 3 months followed by long-term antiplatelet therapy with clopidogrel was recommended. Importance of smoking cessation was emphasized repeatedly. Management of migraine symptoms as discussed below. Hemoglobin A1c was slightly elevated at 6.4, but not high enough to indicate diagnosis of diabetes; fasting blood sugar was 112. Recheck fasting blood sugar and hemoglobin A1c periodically. LDL cholesterol was 98. Statin therapy not indicated: LDL < 100 no evidence of ischemic stroke on neuroimaging no evidence of atherosclerotic plaque / stenosis on CTA of head & neck. (2) Migraine: History of migraine headaches, managed with sumatriptan. [place] that current presentation may have been secondary to complex migraine. Triptans can cause/exacerbate complex migraines and discontinuation was recommended. Neurology recommended trial of gabapentin 100 mg with acetaminophen as needed to abort migraines. Outpatient follow-up with Neurology. (3) HLD (hyperlipidemia): History of dyslipidemia. LDL cholesterol was 98. Statin therapy not indicated at this time: LDL < 100 no evidence of ischemic stroke on neuroimaging no evidence of atherosclerotic plaque / stenosis on CTA of head & neck no history of ischemic heart disease (4) COPD (chronic obstructive pulmonary disease): Pulmonary status stable. (5) Tobacco abuse: Importance of smoking cessation emphasized repeatedly by the undersigned and other staff. May use [id number] nicotine replacement products such as nicotine patches and/or nicotine gum as directed. Will probably need ongoing supportive counseling in clinic. (6) Calf pain: Mild left calf tenderness noted on exam. Venous duplex negative for DVT. (7) DVT prophylaxis: No anticoagulants because of TPA. SCD's. (8) Discharge planning issues: Discharge to home. Family Medicine follow-up with Dr. Salas. Neurology follow-up with Dr. Hermosillo. Total Time Total Time Spent Total Time Spent (In Minutes): 50 Discharge Plan Discharge Items Patient Disposition: Home - Self-Care Reason For Visit: STROKE LIKE SYMPTOMS Discharge Diagnosis: possible TIA ("ministroke"0 possible complex migraine Condition on Discharge: Good Activity: Resume your previous activity Non-emergency contact: Primary Care Provider, Hospitalist and Neurologist Call non-emergency contact if: you have any medication questions and your symptoms worsen Follow-up/Referrals: Cora Salas DO [Primary Care Provider] - (Office will call you with appointment.) Eryn Hermosillo MD [Physician] - (Please ask Dr. Salas for referral.) Diet: Heart Healthy Addtl Attending Provider Instructions: MEDICATION CHANGES: Take clopidogrel (Plavix) 75 mg daily. Helps prevent strokes. Take aspirin for 3 more weeks, then stop. Try gabapentin (Neurontin) 100 mg at beginning of migraine. Take it with Tylenol Extra Strength 500 mg. May repeat dose in 2 hours if necessary. STOP sumatriptan (Imitrex)- it can worsen complex migraines. SUMMARY OF TEST RESULTS: No sign of stroke on CT scan or MRI. LDL cholesterol was 98. OTHER INSTRUCTIONS: PLEASE do not smoke. It is bad for your lungs, your heart, and your brain. You may try nonprescription nicotine replacement products like nicotine patch or gum as directed. Please discuss further with Dr. Salas. Seek medical attention if you have: * severe headache, trouble with vision, trouble speaking, weakness, trouble walking * temperature above 101 * chest pain or trouble breathing * abdominal pain, nausea, vomiting * diarrhea, dark stools or bloody stools * any unanswered questions or concerns Call 911 if symptoms are severe. Please take good care of yourself. Call if you have any questions or problems. You can reach a [facility] hospitalist on duty at [facility] 24 hours a day by calling [phone]. My cell # is [phone]. STROKE INSTRUCTIONS: Risk Factors for Stroke: You can reduce your chances of stroke by working with your medical provider to adopt a healthy lifestyle. Some specific ways to lower your chance of stroke are: * If you are a smoker, now is the time to stop smoking cigarettes * If you are diabetic, improve the control of your blood sugars * Avoid excessive amounts of alcohol * Control high blood pressure * Lose weight if you are overweight * Be sure to lead an active lifestyle * Eat a healthy diet low in salt, cholesterol and fat You should know about other risk factors for stroke that you are unable to control. These include: * Age 55 years or older * Male gender * Certain racial groups: , or / * Family History of Stroke, Mini stroke or Heart Attack * Sickle Cell Disease Follow Up: It is important for you to keep your follow up appointments with your medical provider. Who to Call and When: Medical Emergencies: Call 911 immediately if you experience any of the following warning signs and symptoms of Stroke: * Sudden numbness or weakness of the face, arm or leg, especially on one side of the body * Sudden confusion, trouble speaking or understanding * Sudden trouble seeing in one or both eyes * Sudden trouble walking, dizziness, loss of balance or coordination * Sudden severe headache with no cause Do not delay calling 911 if you experience any warning signs or symptoms of a stroke. Delay in seeking medical attention may affect what treatments can be given to you. . Pending Studies at Discharge: No Stand-Alone Forms: Medications to Prevent Stroke, [facility], Smoking Cessation Medications and DC Order Prescriptions: New gabapentin 100 mg capsule 100 mg PO DAILY PRN (Reason: migraine headache) Qty: 10 RF: 0 clopidogrel 75 mg tablet 75 mg PO DAILY Qty: 30 RF: 5 Continued venlafaxine 37.5 mg capsule,extended release 24hr 37.5 mg PO DAILY RF: 0 albuterol sulfate 90 mcg/actuation HFA aerosol inhaler 2 puff Inhalation Q4 PRN (Reason: Shortness Of Breath Or Wheezing) RF: 0 aspirin 81 mg Tablet,Chewable 81 mg PO DAILY RF: 0 Breo Ellipta 100-25 mcg/dose blister with device 1 inha INH DAILY Qty: 1 RF: 0 Discontinued sumatriptan succinate 100 mg tablet 100 mg PO UD PRN (Reason: Migraine Headache) RF: 0 Discharge Orders: Discharge Order (Routine); Ordered 05/09/19 Ordered By: Jasbir Moses/Other Patient Handouts: A1C Admission Data Admit Date/Time: 05/08/19 09:00 Attending Provider: Jasbir Powell Admit Provider: Jasbir Powell Primary Care Provider: Cora Salas Other Providers: Moses Dhillon ; Jasbir Powell ; Jasbir Mock Other Interventions: Discharge Summary Assessment (RN) Last Done: 05/09/19 18:51 DC Date/Time DO NOT enter until pt leaves facility: 05/09/19 19:54
--- NOTE | 2019-05-12 12:00 | Pharmacy Report ---
Pharmacist Post D/C Phone Note - Phone Note: Date of phone call: May 12, 2019. Individual with whom pharmacist spoke to: RAJINDER FLAHERTY The following questions were reviewed during the phone call with responses listed below each: Can you tell me the medications that you are currently taking as well as when and how you take each medication? -See Table Below When have you missed any doses of your medications? - NONE What side effects are you having from your medications, specifically, the new medications you were started on? - NONE What questions do you have about your medications? - gabapentin: excess sedation sedation What problems are you having obtaining your medications? - NONE When is your next appointment with your primary care doctor? - tomorrow Additional comments: - having difficulty with fine motors --> told her to follow-up with physician As per the Pharmacist Discharge Counseling for Stroke Patients Protocol, this phone call has been completed within 72 hours of discharge. Thank you for allowing us to be involved in the care of this patient. - Home Medications: Home Medications Medication Instructions Recorded Confirmed albuterol sulfate 2 puff INHALATION Q4 PRN 03/05/18 05/08/19 aspirin 81 mg PO DAILY 03/05/18 05/08/19 venlafaxine 37.5 mg PO DAILY 03/05/18 05/08/19 New Rx's Medication Instructions Recorded Breo Ellipta 1 inha INH DAILY #1 ea 03/07/18 clopidogrel 75 mg PO DAILY #30 tab 05/09/19 gabapentin 100 mg PO DAILY PRN #10 cap 05/09/19
== END 2019-05-09 19:54 | disposition home or self-care (01) | DRG 103 ==
LOC: ED 08:16 → 1E 09:00 → 2W 05-09 10:16